=== PATIENT | male | born 1950 | race Caucasian/White ===

== ENCOUNTER 2020-01-20 12:31 | Outpatient (REF) | payer OTHER, SELFPAY ==
[2020-01-20 13:43] LABS: Alanine Aminotransferase 28 U/L (0-40); Albumin Level 4.7 g/dL (3.5-5.0); Alkaline Phosphatase 88 U/L (39-117); Anion Gap 10 (12-20); Aspartate Amino Transferase 22 U/L (5-37); Bilirubin Total 0.7 mg/dL (0.0-1.0); Blood Urea Nitrogen 15 mg/dL (9-16); Calcium 9.6 mg/dL (8.4-10.2); Carbon Dioxide 32 mmol/L (22-29); Chloride 103 mmol/L (96-108); Cholesterol 216 mg/dL; Estimated Glomerular Filt Rate > 60; Glucose Fasting 124 mg/dL (60-99); HDL Cholesterol 60 mg/dL; LDL Cholesterol Calculated 137 mg/dl; Potassium 4.5 mmol/l (3.3-5.1); Sodium 140 mmol/L (135-145); Total Protein 7.3 g/dL (6.5-8.0); Triglycerides 95 mg/dL
[2020-01-20 14:06] LABS: Prostate Specific Antigen Scr 1.81 ng/mL (<0.05-4.0)
== END 2020-01-20 12:32 | disposition home or self-care (01) ==
LOC: HO.LAB 12:31
PROVIDERS: PCP Pediatrics; Visit Provider Pediatrics
DX: Z12.5 Encounter for screening for malignant neoplasm of prostate (principal); E78.00 Pure hypercholesterolemia, unspecified
CPT/HCPCS: 80053; 80061; 84153

== ENCOUNTER 2020-07-10 07:47 | Outpatient (REF) | payer OTHER, SELFPAY ==
--- NOTE | ~2020-07-10 | US_ITS ---
EXAMINATION: US RETROPERITONEAL LIMITED (AORTA) CLINICAL INFORMATION: AAA. COMPARISON: Ultrasound AAA screening abdomen 05/06/2019. TECHNIQUE: [place]-scale, color Doppler and spectral Doppler evaluation of the abdominal aorta. FINDINGS: The aorta is normal. The measurements of the aorta in maximum AP and transverse dimensions respectively are as follows: Proximal: 2.7 x 3.1 cm. Mid: 2.4 x 2.5 cm. Distal: 1.9 x 1.9 cm. PSV: 120 cm/s. The measurements of the common iliac arteries in maximum AP and TRV dimensions are as follows: Right Common Iliac Artery: 1.3 x 1.4 cm. Left Common Iliac Artery: 1.1 x 1.1 cm. US/US aorta IMPRESSION: No evidence of aneurysm. No significant change in proximal mild ectatic abdominal aorta.
== END 2020-07-10 07:48 | disposition home or self-care (01) ==
LOC: HO.US 07:47
PROVIDERS: PCP Pediatrics; Visit Provider Surgery Vascular Surgery
DX: I72.3 Aneurysm of iliac artery (principal)
CPT/HCPCS: 76775

== ENCOUNTER 2020-07-19 10:26 | Outpatient (REF) | payer OTHER, SELFPAY ==
[2020-07-19 12:27] LABS: Estimated Average Glucose 157 mg/dL; Hemoglobin A1c % 7.1 %
[2020-07-19 12:29] LABS: Alanine Aminotransferase 26 U/L (0-40); Albumin Level 4.6 g/dL (3.5-5.0); Alkaline Phosphatase 91 U/L (39-117); Anion Gap 14 (12-20); Aspartate Amino Transferase 24 U/L (5-37); Bilirubin Total 0.8 mg/dL (0.0-1.0); Blood Urea Nitrogen 17 mg/dL (9-16); Calcium 9.8 mg/dL (8.4-10.2); Carbon Dioxide 29 mmol/L (22-29); Chloride 105 mmol/L (96-108); Cholesterol 213 mg/dL; Estimated Glomerular Filt Rate > 60; Glucose Random 126 mg/dL (60-115); HDL Cholesterol 57 mg/dL; LDL Cholesterol Calculated 138 mg/dl; Potassium 4.9 mmol/L (3.3-5.1); Sodium 143 mmol/L (135-145); Total Protein 7.2 g/dL (6.5-8.0); Triglycerides 90 mg/dL
== END 2020-07-19 10:27 | disposition home or self-care (01) ==
LOC: HO.LAB 10:26
PROVIDERS: PCP Pediatrics; Visit Provider Pediatrics
DX: R73.9 Hyperglycemia, unspecified (principal); E78.00 Pure hypercholesterolemia, unspecified
CPT/HCPCS: 36415; 80053; 80061; 83036

== ENCOUNTER 2020-08-11 15:08 | Outpatient (REF) | payer OTHER, SELFPAY ==
--- NOTE | ~2020-08-11 | US_ITS ---
EXAMINATION: US EXTRACRANIAL CAROTID DUPLEX, BILATERAL CLINICAL INFORMATION: Stenosis of bilateral carotid arteries. COMPARISON: None TECHNIQUE: Real-time ultrasound and Doppler techniques (integrating B-mode 2-D vascular images, Doppler spectral analysis and color-flow Doppler imaging) were utilized to interrogate the extracranial carotid arteries, the vertebral arteries and proximal subclavian arteries bilaterally. The degree of stenosis is determined by criteria similar to NASCET. FINDINGS: Right Side: 1. There is mild echogenic atherosclerotic plaque seen in the bifurcation/proximal ICA region. 2. The common carotid artery PSV proximally is 123 cm/s and distally 109 cm/s. 3. The proximal internal carotid artery velocities are 81 cm/s systolic and 21 cm/s diastolic. 4. The proximal external carotid artery PSV is 158 cm/s. 5. The vertebral artery shows antegrade flow. 6. The subclavian artery waveforms are normal. Left Side: 1. There is mild echogenic atherosclerotic plaque seen in the bifurcation/proximal ICA region. 2. The common carotid artery PSV proximally is 149 cm/s and distally 127 cm/s. 3. The proximal internal carotid artery velocities are 84 cm/s systolic and 25 cm/s diastolic. 4. The proximal external carotid artery PSV is 129 cm/s. 5. The vertebral artery shows antegrade flow. 6. The subclavian artery waveforms are normal. US/US carotid duplex BI IMPRESSION: 1. RIGHT: Minimal, non-hemodynamically significant stenosis of the proximal right internal carotid artery corresponding to a 0-49% stenosis by velocity criteria. 2. LEFT: Minimal, non-hemodynamically significant stenosis of the proximal left internal carotid artery corresponding to a 0-49% stenosis by velocity criteria.
== END 2020-08-11 15:09 | disposition home or self-care (01) ==
LOC: HO.US 15:08
PROVIDERS: PCP Pediatrics; Visit Provider Pediatrics
DX: I65.23 Occlusion and stenosis of bilateral carotid arteries (principal)
CPT/HCPCS: 93880

== ENCOUNTER 2020-11-24 09:01 | Outpatient (REF) | payer OTHER, SELFPAY ==
[2020-11-24 10:25] LABS: Alanine Aminotransferase 16 U/L (0-40); Albumin Level 4.3 g/dL (3.5-5.0); Alkaline Phosphatase 79 U/L (39-117); Anion Gap 11 (12-20); Aspartate Amino Transferase 20 U/L (5-37); Blood Urea Nitrogen 15 mg/dL (9-16); Carbon Dioxide 30 mmol/L (22-29); Chloride 104 mmol/L (96-108); Cholesterol 160 mg/dL; Estimated Glomerular Filt Rate > 60; Glucose Random 113 mg/dL (60-115); HDL Cholesterol 54 mg/dL; LDL Cholesterol Calculated 98 mg/dl; Potassium 4.7 mmol/L (3.3-5.1); Sodium 140 mmol/L (135-145); Total Protein 6.8 g/dL (6.5-8.0); Triglycerides 44 mg/dL
[2020-11-24 12:55] LABS: Creatinine Urine 220.62 mg/dL; Microalbum/Creatinine Ratio Ur 4.5 ug/mg cr
[2020-11-25 07:24] LABS: Estimated Average Glucose 120 mg/dL; Hemoglobin A1c % 5.8 %
== END 2020-11-24 09:02 | disposition home or self-care (01) ==
LOC: HO.LAB 09:01
PROVIDERS: PCP Pediatrics; Visit Provider Pediatrics
DX: E11.51 Type 2 diabetes mellitus with diabetic peripheral angiopathy without gangrene (principal)
CPT/HCPCS: 36415; 80053; 80061; 82043; 83036

== ENCOUNTER 2020-12-22 10:15 | Outpatient (REF) | payer OTHER, SELFPAY ==
[2020-12-22 10:53] LABS: COVID-19 Test Negative (Negative)
== END 2020-12-22 10:16 | disposition home or self-care (01) ==
LOC: HO.LAB 10:15
PROVIDERS: PCP Pediatrics; Visit Provider Internal Medicine
DX: Z20.822 Contact with and (suspected) exposure to COVID-19 (principal)
CPT/HCPCS: 36415; 87635; C9803

== ENCOUNTER 2020-12-27 12:33 | Outpatient (REF) | payer OTHER, SELFPAY ==
--- NOTE | ~2020-12-27 | XR_ITS ---
EXAMINATION: XR SHOULDER, BILATERAL CLINICAL INFORMATION: Chronic bilateral shoulder pain COMPARISON: None TECHNIQUE: 4 views of each shoulder FINDINGS: Right shoulder: Normal alignment. No fracture. Mild glenohumeral and moderate acromioclavicular osteoarthritis. No fracture or suspicious bone lesion. Left shoulder: Normal alignment. No fracture. Mild glenohumeral and moderate acromioclavicular osteoarthritis. No fracture or suspicious bone lesion. Probable subscapularis insertional calcific tendinitis. Demonstrated on the axillary view. XR/XR shoulder LT min 2V IMPRESSION: Right shoulder: Mild glenohumeral and moderate acromioclavicular osteoarthritis. Left shoulder: Moderate subacromial and mild glenohumeral osteoarthritis. Probable subscapularis calcific tendinitis.
--- NOTE | ~2020-12-27 | XR_ITS ---
EXAMINATION: XR SHOULDER, BILATERAL CLINICAL INFORMATION: Chronic bilateral shoulder pain COMPARISON: None TECHNIQUE: 4 views of each shoulder FINDINGS: Right shoulder: Normal alignment. No fracture. Mild glenohumeral and moderate acromioclavicular osteoarthritis. No fracture or suspicious bone lesion. Left shoulder: Normal alignment. No fracture. Mild glenohumeral and moderate acromioclavicular osteoarthritis. No fracture or suspicious bone lesion. Probable subscapularis insertional calcific tendinitis. Demonstrated on the axillary view. XR/XR shoulder RT min 2V IMPRESSION: Right shoulder: Mild glenohumeral and moderate acromioclavicular osteoarthritis. Left shoulder: Moderate subacromial and mild glenohumeral osteoarthritis. Probable subscapularis calcific tendinitis.
== END 2020-12-27 12:34 | disposition home or self-care (01) ==
LOC: HO.XRAY 12:33
PROVIDERS: PCP Pediatrics; Visit Provider Physician Assistant
DX: M25.512 Pain in left shoulder (principal); M25.511 Pain in right shoulder
CPT/HCPCS: 73030

== ENCOUNTER 2021-02-23 07:08 | Outpatient (REF) | payer OTHER, SELFPAY ==
--- NOTE | ~2021-02-23 | XR_ITS ---
EXAMINATION: XR SHOULDER, BILATERAL CLINICAL INFORMATION: Pain in the shoulder. COMPARISON: X-rays of the right shoulder December 2020. TECHNIQUE: There are 4 views of each shoulder. FINDINGS: Right Shoulder: Acromioclavicular Joint: Moderate osteoarthritis, unchanged. Glenohumeral Joint: Mild osteoarthritis manifested by small marginal osteophytes. Unchanged. Surrounding bone and soft tissues unremarkable. Left Shoulder: Moderate osteoarthritis of the acromioclavicular joint and mild osteoarthritis of glenohumeral joint manifested by marginal osteophytes. Surrounding soft tissues unremarkable. XR/XR shoulder LT min 2V IMPRESSION: RIGHT SHOULDER: Osteoarthritis. Unchanged LEFT SHOULDER: Osteoarthritis.
--- NOTE | ~2021-02-23 | XR_ITS ---
EXAMINATION: XR SHOULDER, BILATERAL CLINICAL INFORMATION: Pain in the shoulder. COMPARISON: X-rays of the right shoulder December 2020. TECHNIQUE: There are 4 views of each shoulder. FINDINGS: Right Shoulder: Acromioclavicular Joint: Moderate osteoarthritis, unchanged. Glenohumeral Joint: Mild osteoarthritis manifested by small marginal osteophytes. Unchanged. Surrounding bone and soft tissues unremarkable. Left Shoulder: Moderate osteoarthritis of the acromioclavicular joint and mild osteoarthritis of glenohumeral joint manifested by marginal osteophytes. Surrounding soft tissues unremarkable. XR/XR shoulder RT min 2V IMPRESSION: RIGHT SHOULDER: Osteoarthritis. Unchanged LEFT SHOULDER: Osteoarthritis.
== END 2021-02-23 07:09 | disposition home or self-care (01) ==
LOC: HO.HOSX 07:08
PROVIDERS: Visit Provider Physician Assistant
DX: M19.011 Primary osteoarthritis, right shoulder (principal); M19.012 Primary osteoarthritis, left shoulder
CPT/HCPCS: 20610; 73030; J1040

== ENCOUNTER → 2021-04-20 13:08 | Outpatient (BNVA) | payer OTHER, SELFPAY | PROVIDERS: PCP Pediatrics; Visit Provider Physician Assistant | DX: M19.011 Primary osteoarthritis, right shoulder (principal); M19.012 Primary osteoarthritis, left shoulder | CPT/HCPCS: J1040 ==

== ENCOUNTER 2021-04-26 11:11 | Outpatient (REF) | payer OTHER, SELFPAY | END 2021-04-26 11:12 | disposition home or self-care (01) | LOC: HO.LAB 11:11 | PROVIDERS: PCP Pediatrics; Visit Provider Pediatrics | DX: Z13.29 Encounter for screening for other suspected endocrine disorder (principal) | CPT/HCPCS: 36415; 84443 ==

== ENCOUNTER 2021-04-26 14:00 | Outpatient (RCR) | payer OTHER, SELFPAY ==
--- NOTE | 2021-04-13 08:35 | MHC.PT.OD ---
[facility] [place] Office [place] Office [place] Office [address] Juan Manuel Orellana [address] [phone] F: [phone] F: [phone] F: [phone] F: [phone] Physical Therapy Daily Note Diagnosis: Bilateral frozen shoulder and sciatica signed by Ivory Mena PA-C from [place] date of referral 12/27/20 Date of Surgery: N/A Date of Evaluation: 01/08/21 Date of Treatment: 04/12/21 Treatments to Date: Cancellations to Date: No Shows to Date: Authorized Visits: Insurance End Date: Precautions/ Contraindications:DMII, 65 AROM abd on R 90 AROM flexion on R 120 flexion AROM on L 130 abd AROM on L L IR midline Subjective: Not good. I had a very hard time with motion the past few days but I dont know why. After speaking to patient pt expresses has come off of celebrex medication around same time as onset of sx. Pt encouraged to speak to PCP about ongoing sx ? benefit Pain Score and Location: 3 B [facility] Objective Flowsheet: Tests & Measures 04/12/21: R shoulder flexion AROM standing 87 AROM L shoulder flexion AROM standing 50 degrees R shoulder abduction AROM standing 65 degrees L shoulder abduction standing 45 degrees R shoulder ER in standing to C5, L shoulder to ear R ER AROM 50, R IR 60 L ER AROM 60, L IR 45 limited by pain 04/03/21: AROM L flexion 110 degrees, AAROM supine 160 degrees, AAROM scaption 128, ER 70, IR 30 R shoulder AROM 110, AAROM supine flexion 150, AAROM scaption 138 degrees, AAROM ER 48 degrees, AAROM IR 60 degrees. AROM 128 degreees supien L flexion 155, ER 90, IR 53, L scaption 155 R flexion 151, ER 68, IR 58, L scaption 148 [facility] [address] [place] [address] Drive [address] [place] [address] Office Visit Report Signed Patient: Arias Mares [facility]#: [id number] : 2Acct:[id number] Age/Sex: 70 / MADM/SER Date: 02/23/21 Loc: HO.HOSADM/SER Time:1424 Attending Provider: Hayley Tenorio PA-C cc: Hayley Tenorio PA-C; FARA MELVIN MD~ Intake Vital Signs 02/23/21 14:51 Height 5 ft 11 in Weight 178 lb BMI 24.8 Temp 97 F Temp Source Temporal Artery Scan 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 States his pain started about 4 months. No injury. Saw his PCP where he ref him to P.T. States xrays were done and showed O.A. Currently states P.T did help but on Friday he had limited ROM, swelling and his shoulder was hot to the touch. No neck pain. Currently states today he is alot better than than a few days ago. states he is taken Alieve and ibuprofen. No prior injection. Xrays updated in office. 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 He states that the pain began around last year. He attended physical therapy last year which did help. He has been attending physical therapy again this year however this past week he had an increase in pain and difficulty with range of motion. He has never tried cortisone injection. 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 No ecchymosis, redness or edema. Patient is able to demonstrate full shoulder range of motion in all planes but does experience pain. No pain with internal external range of motion. Pain with cross-body reach. Positive empty can. Negative drop-arm. NVI. Office Procedures Joint Injection/Drain Joint Injection/Drain Primary Site: right shoulder Prep: site was prepped using aseptic technique, ethochloride spray was applied and injection warnings given Injected: 80 mg of, DepoMedrol, with 4 mL of, 1% plain lidocaine, 0.25% bupivacaine and in the subcromial space Approach Used: posterolateral Procedure: The patient tolerated the procedure well, but had some pain with the injection and there was some relief with the local anesthesia Coding Procedure code (CPT) selection complete Results Reviewed Results Reviewed: 02/23/21 15:15 Bupivacaine MPF 0.25 % [Sensorcaine-MPF 0.25% 10 ML] 10 ml .ROUTE .STK-MED ONE Lidocaine HCl 1 % MPF [Xylocaine 1 % MPF] 2 ml .ROUTE .STK-MED ONE methylPREDNISolone acetate [DEPO-MedroL] 80 mg .ROUTE .STK-MED ONE Assessment & Plan Assessment & Plan (1) Osteoarthritis of shoulders, bilateral: Code(s): M19.011 - Primary osteoarthritis, right shoulder; M19.012 - Primary osteoarthritis, left shoulder Plan: Mr. Mares is a 70-year-old left-hand dominant male who presents the office today for bilateral shoulder pain. X-rays obtained the office today reveal bilateral shoulder glenohumeral joint arthritis as well as AC joint arthritis. Patient does have weakness when testing the rotator cuffs bilaterally. I have offered him a cortisone injection in which he has consented to move forward with today. He would like to inject 1 shoulder at a time and therefore has elected to proceed with injecting the right shoulder because it is slightly worse with symptoms. He has a history of diabetes type 2 in which is diet controlled. I did explain to the patient that he may have an increase in his sugar levels and should monitor them over the next week. I injected the right shoulder. The patient tolerated the procedure very well. He will follow-up next week for injection of the left shoulder. He will continue to attend physical therapy in which he is currently enrolled. He will follow-up 1 week, sooner if needed Orders: Orders XR shoulder LT min 2V Today M25.519 - Pain in unspecified shoulder XR shoulder RT min 2V Today M25.519 - Pain in unspecified shoulder Coding Level of Care Code Est Pt Level 3 (87646) Diagnoses Osteoarthritis of shoulders, bilateral M19.011; M19.012 Documented By:Hayley Tenorio02/23/21 1425 Signed By:<Electronically signed by Hayley Tenorio>02/23/21 1527 02/20/21:L shoulder flexion 50, R shoulder flexion 30, Poor tolerance for R PROM assessment secondary to severe pain and guarding. Pt unable to tolerate therapist ranging his shoulder into ER/IR, flexion, 02/13/21: L AROM FLEXION 133, L AROM supine 153 L AROM ABDUCTION 108, AROM supine 135 L AROM IR Lat buttocks, L AROM IR 60 L AROM ER C7, L AROM 80 R AROM FLEXION 88 degrees, supine flexion 133 R AROM ABDUCTION 72 degrees, supine abduction 103 R ER PROM 50 limited by pain, R IR 64 limited by pain I never had great ability to reach behind my back. Exercises [employer] UE warmup x 10 minutes level 3.0 backward and then 10 minutes forward in effort to increase ROM/reduce pain. ROWS with stroop nathalia, ER/IR with red Stroop nathalia x 2 sets 10R, standing wall pushups with a plus x 2 sets 10R, wall ball 500gram ball up/down/circles, AAROM wall slide x 5R x 20 sec hold, left upper trap and left levator scap, stretches for home program. AAROM cane flexion with 2# weight x 2 set 10R. Biofreeze in the office today over both shoulders pre applied manual therapy treatment with good tolerance. Posterior/inferior mobs pre activity; L>R shoulder for PROM all planes x 5R each to tolerance. L SL for trial of scap mob with poor tolerance verbalized, R SL for scap mob and teres musculature. Education re: recommendation for self care/STM, AAROM/AROM back off from strengthening when this symptomatic. MHP to bilateral shoulders x 10 minutes pre activity with phone call placed to PCP office as noted above Self care to continue current HEP program as previously prescribed Start with MHP/shower/pendulums movement>> AAROM table slides, pulleys, supine cane work, end with ice prn for pain. Modalities Assessment: 04/12/21: Pt presents to office with significant in decline and setback in ROM/mobility which was present prior. Upon speaking to patient it appears he ran out of celebrex medication around onset of sx and he was unsure if he had a refill. Pt was advised to inquire with pharmacy about refill and follow up with orthopedics office to determine plan going forward. Therapist called orthopedics to assist in obtaining a follow up appt for patient due to recurrence of poor ROM/severe pain despite home program. Pt was also advised to follow up with PCP re sx-? thyroid involvement due to repeated bouts of sx despite compliance with home program (reports (+) family history of thyroid deficiencies). Pt is plateauing in progress with PT- he has attended 22 visits to date. He has an AAROM/AROM program and persiscap program program in place. Pt expressing more pain in L shoulder>R side. He received an injection in R shoulder on 02/22/21 with (+) improvement however now he questions sx flaring again. He questions benefit in moving forward with L shoulder injection, He continues to exhibit impaired scapulohumeral rhythm and impaired end ranges. He has been performing home program, encouraged ROM with goal of backing off from strengthening tasks for now. PT Plan: Follow up with ortho and PCP ? benefit screening thyroid due to (+) family history and repeated sx despite home program Short Term Goals: 1. AAROM R shoulder flexion to improve to 110, L shoulder flexion AAROM to 140. 2. Pt will initiate HEP for bilateral frozen shoulders, sciatica. 3. Pt will demonstrate IR to back pocket B shoulders. 4. Pt will demonstrate ER to C7 B to wash back of neck. K [employer] Officer Goals: 1. Functional ROM of L>R shoulder all planes sx <2/10 B shoulders. 2. Pt will demonstrate I HEP for stretching/stabilization program. 3. IR bilateral shoulders don belt MOD I. 4. Strength 5/5 B UE. 5. Resume guitar/household tasks MOD I. 6. Demonstrate carryover of frozen shoulder sx and initiate undertanding of sx. Electronically signed by: Cinthia Graves, PT, DPT
== END 2021-09-21 13:45 | disposition home or self-care (01) ==
LOC: HO.PTWFD 14:00
PROVIDERS: PCP Pediatrics; Visit Provider Physician Assistant
DX: M54.30 Sciatica, unspecified side (principal); M75.00 Adhesive capsulitis of unspecified shoulder
CPT/HCPCS: 97110; 97140; 97150; 97162; 97535

== ENCOUNTER → 2021-05-04 14:04 | Outpatient (RCR) | payer OTHER, SELFPAY | END | disposition home or self-care (01) | LOC: HO.PT 02-01 07:40 | PROVIDERS: Visit Provider Pediatrics | DX: M25.511 Pain in right shoulder (principal); M25.512 Pain in left shoulder; G89.29 Other chronic pain | CPT/HCPCS: 97110; 97162 ==

== ENCOUNTER 2021-05-21 09:44 | Outpatient (REF) | payer OTHER, SELFPAY ==
[2021-05-21 11:00] LABS: Estimated Average Glucose 123 mg/dL; Hemoglobin A1c % 5.9 %
[2021-05-21 11:01] LABS: Alanine Aminotransferase 15 U/L (0-40); Albumin Level 4.4 g/dL (3.5-5.0); Alkaline Phosphatase 88 U/L (39-117); Anion Gap 12 (12-20); Aspartate Amino Transferase 18 U/L (5-37); Bilirubin Total 0.7 mg/dL (0.0-1.0); Blood Urea Nitrogen 15 mg/dL (9-16); Calcium 9.9 mg/dL (8.4-10.2); Carbon Dioxide 29 mmol/L (22-29); Chloride 105 mmol/L (96-108); Cholesterol 170 mg/dL; Estimated Glomerular Filt Rate > 60; Glucose Random 119 mg/dL (60-115); HDL Cholesterol 57 mg/dL; LDL Cholesterol Calculated 103 mg/dl; Potassium 4.6 mmol/L (3.3-5.1); Sodium 141 mmol/L (135-145); Total Protein 7.4 g/dL (6.5-8.0); Triglycerides 53 mg/dL
[2021-05-21 11:23] LABS: Creatinine Urine 145.93 mg/dL; Microalbum/Creatinine Ratio Ur 4.1 ug/mg cr
== END 2021-05-21 09:45 | disposition home or self-care (01) ==
LOC: HO.LAB 09:44
PROVIDERS: PCP Pediatrics; Visit Provider Pediatrics
DX: E11.51 Type 2 diabetes mellitus with diabetic peripheral angiopathy without gangrene (principal)
CPT/HCPCS: 36415; 80053; 80061; 82043; 83036

== ENCOUNTER 2021-06-04 11:09 | Outpatient (REF) | payer OTHER, SELFPAY ==
[2021-06-04 13:23] LABS: Erythrocyte Sedimentation Rate 31 MM/HR (0-15)
[2021-06-04 13:24] LABS: Rheumatoid Factor < 15.0 IU/mL (<15.0); Uric Acid 4.7 mg/dL (3.4-7.0)
[2021-06-04 13:33] LABS: Thyroid Stimulating Hormone 1.73 uIU/mL (0.32-4.0)
[2021-06-05 15:51] LABS: Triiodothyronine T3 Free 3.2 pg/mL (2.3-4.2)
[2021-06-05 18:32] LABS: Lyme Abs Screen <0.90 index
[2021-06-06 15:26] LABS: Anti Nuclear Antibody Screen NEGATIVE (NEGATIVE)
== END 2021-06-04 11:10 | disposition home or self-care (01) ==
LOC: HO.LAB 11:09
PROVIDERS: PCP Pediatrics; Visit Provider Pediatrics
DX: M25.50 Pain in unspecified joint (principal)
CPT/HCPCS: 36415; 84436; 84443; 84481; 84550; 85652; 86038; 86039; 86431; 86617; 86618

== ENCOUNTER 2021-11-26 07:51 | Outpatient (REF) | payer OTHER, SELFPAY ==
[2021-11-26 08:40] LABS: Alanine Aminotransferase 14 U/L (0-40); Albumin Level 4.3 g/dL (3.5-5.0); Alkaline Phosphatase 92 U/L (39-117); Anion Gap 14 (12-20); Aspartate Amino Transferase 17 U/L (5-37); Blood Urea Nitrogen 18 mg/dL (9-16); Calcium 9.9 mg/dL (8.4-10.2); Carbon Dioxide 29 mmol/L (22-29); Chloride 103 mmol/L (96-108); Cholesterol 164 mg/dL; Estimated Glomerular Filt Rate > 60; Glucose Random 111 mg/dL (60-115); HDL Cholesterol 49 mg/dL; LDL Cholesterol Calculated 105 mg/dl; Potassium 4.6 mmol/L (3.3-5.1); Sodium 141 mmol/L (135-145); Total Protein 7.3 g/dL (6.5-8.0); Triglycerides 52 mg/dL
[2021-11-26 09:03] LABS: Prostate Specific Antigen Scr 2.52 ng/mL (<0.05-4.0)
[2021-11-26 09:22] LABS: Estimated Average Glucose 117 mg/dL; Hemoglobin A1c % 5.7 %
[2021-11-26 09:35] LABS: Creatinine Urine 49.09 mg/dL; Microalbumin Urine < 5.0 mg/L
== END 2021-11-26 07:52 | disposition home or self-care (01) ==
LOC: HO.LAB 07:51
PROVIDERS: PCP Pediatrics; Visit Provider Pediatrics
DX: Z12.5 Encounter for screening for malignant neoplasm of prostate (principal); E11.51 Type 2 diabetes mellitus with diabetic peripheral angiopathy without gangrene
CPT/HCPCS: 36415; 80053; 80061; 82043; 83036; 84153

== ENCOUNTER 2021-12-03 14:59 | Outpatient (REF) | payer OTHER, SELFPAY ==
--- NOTE | ~2021-12-03 | XR_ITS ---
EXAMINATION: XR BILATERAL HIPS WITH AP PELVIS CLINICAL INFORMATION: Hip pain. COMPARISON: None TECHNIQUE: AP and frog-leg lateral views of each hip and an AP view of the pelvis. FINDINGS: Small bilateral marginal acetabular osteophytes. Hip joint spaces are well-preserved. No fracture or malalignment. Additional mild osteoarthritis is present in the SI joints. Pubic symphysis is normal. There is degenerative spondylosis in the lumbar spine with facet arthropathy. No acute osseous lesions are identified. Enthesopathic spurs are present at the anterior superior iliac spines. No evidence of avascular necrosis. 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 More mild osteoarthritis at the sacroiliac joints. Degenerative spondylosis in the lower lumbar spine.
--- NOTE | ~2021-12-03 | XR_ITS ---
EXAMINATION: XR BILATERAL HIPS WITH AP PELVIS CLINICAL INFORMATION: Hip pain. COMPARISON: None TECHNIQUE: AP and frog-leg lateral views of each hip and an AP view of the pelvis. FINDINGS: Small bilateral marginal acetabular osteophytes. Hip joint spaces are well-preserved. No fracture or malalignment. Additional mild osteoarthritis is present in the SI joints. Pubic symphysis is normal. There is degenerative spondylosis in the lumbar spine with facet arthropathy. No acute osseous lesions are identified. Enthesopathic spurs are present at the anterior superior iliac spines. No evidence of avascular necrosis. XR/XR hip LT w PEL1V IMPRESSION: Minimal osteoarthritis in the hips. More mild osteoarthritis at the sacroiliac joints. Degenerative spondylosis in the lower lumbar spine.
[2021-12-03 15:18] LABS: MANUAL DIFF FLAG NO
[2021-12-03 16:31] LABS: Basophils Percent Auto 0.4 % (0-2); Eosinophils Absolute Auto 0.1 X10*3/uL (0.0-0.4); Eosinophils Percent Auto 1.6 % (0-4); Hematocrit 39.6 % (42.0-52.0); Hemoglobin 13.2 g/dl (14.0-18.0); Imm Gran Abs Auto 0.02 X10*3/uL (0.00-0.03); Imm Gran Pct Auto 0.3 % (0.0-0.4); Lymphocytes Absolute Auto 1.6 X10*3/uL (1.2-4.9); Mean Corpuscular HGB Conc 33.3 g/dl (31.0-36.0); Mean Corpuscular Hemoglobin 30.3 pg (27.0-33.0); Mean Corpuscular Volume 90.8 fL (80.0-98.0); Mean Platelet Volume 9.9 fL (9.4-12.4); Monocytes Absolute Auto 0.6 X10*3/uL (0.1-1.2); Monocytes Percent Auto 8.6 % (2-11); Neutrophils Absolute Auto 4.5 x10*3/uL (2.0-8.3); Neutrophils Percent Auto 66.1 % (45-73); Platelet Count 332 X10*3/uL (160-400); Red Blood Count 4.36 X10*6/uL (4.60-5.80); Red Cell Distribution Width 12.2 % (11.0-16.0); White Blood Count 6.8 X10*3/uL (4.8-10.8)
[2021-12-03 16:49] LABS: C Reactive Protein 5.98 mg/dL (< or = 0.50)
[2021-12-03 17:15] LABS: Erythrocyte Sedimentation Rate 74 MM/HR (0-15)
== END 2021-12-03 15:00 | disposition home or self-care (01) ==
LOC: HO.XRAY 14:59
PROVIDERS: PCP Pediatrics; Visit Provider Internal Medicine Rheumatology
DX: M25.551 Pain in right hip (principal); M25.552 Pain in left hip; M19.011 Primary osteoarthritis, right shoulder; M19.012 Primary osteoarthritis, left shoulder
CPT/HCPCS: 36415; 73502; 85025; 85652; 86140

== ENCOUNTER 2021-12-13 14:20 | Outpatient (REF) | payer OTHER, SELFPAY ==
[2021-12-13 15:43] LABS: C Reactive Protein 0.83 mg/dL (< or = 0.50)
[2021-12-13 15:58] LABS: Erythrocyte Sedimentation Rate 38 MM/HR (0-15)
== END 2021-12-13 14:21 | disposition home or self-care (01) ==
LOC: HO.LAB 14:20
PROVIDERS: PCP Pediatrics; Visit Provider Internal Medicine Rheumatology
DX: M35.3 Polymyalgia rheumatica (principal)
CPT/HCPCS: 36415; 85652; 86140

== ENCOUNTER 2021-12-19 14:55 | Outpatient (REF) | payer OTHER, SELFPAY ==
[2021-12-19 16:30] LABS: C Reactive Protein 0.33 mg/dL (< or = 0.50)
[2021-12-19 16:50] LABS: Erythrocyte Sedimentation Rate 23 MM/HR (0-15)
== END 2021-12-19 14:56 | disposition home or self-care (01) ==
LOC: HO.LAB 14:55
PROVIDERS: PCP Pediatrics; Visit Provider Internal Medicine Rheumatology
DX: M35.3 Polymyalgia rheumatica (principal)
CPT/HCPCS: 36415; 85652; 86140

== ENCOUNTER 2021-12-28 10:38 | Outpatient (REF) | payer OTHER, SELFPAY ==
[2021-12-28 12:22] LABS: C Reactive Protein 0.09 mg/dL (< or = 0.50); Erythrocyte Sedimentation Rate 12 MM/HR (0-15)
== END 2021-12-28 10:39 | disposition home or self-care (01) ==
LOC: HO.LAB 10:38
PROVIDERS: PCP Pediatrics; Visit Provider Internal Medicine Rheumatology
DX: M35.3 Polymyalgia rheumatica (principal)
CPT/HCPCS: 36415; 85652; 86140

== ENCOUNTER 2022-02-15 16:09 | Outpatient (REF) | payer OTHER, SELFPAY ==
[2022-02-15 17:41] LABS: C Reactive Protein 0.12 mg/dL (< or = 0.50)
[2022-02-15 18:14] LABS: Erythrocyte Sedimentation Rate 13 MM/HR (0-15)
== END 2022-02-15 16:10 | disposition home or self-care (01) ==
LOC: HO.LAB 16:09
PROVIDERS: Visit Provider Internal Medicine Rheumatology
DX: M35.3 Polymyalgia rheumatica (principal)
CPT/HCPCS: 36415; 85652; 86140

== ENCOUNTER 2022-03-05 12:17 | Outpatient (REF) | payer OTHER, SELFPAY ==
[2022-03-05 13:06] LABS: C Reactive Protein 0.18 mg/dL (< or = 0.50)
[2022-03-05 13:18] LABS: Erythrocyte Sedimentation Rate 13 MM/HR (0-15)
== END 2022-03-05 12:18 | disposition home or self-care (01) ==
LOC: HO.LAB 12:17
PROVIDERS: PCP Pediatrics; Visit Provider Internal Medicine Rheumatology
DX: M35.3 Polymyalgia rheumatica (principal)
CPT/HCPCS: 36415; 85652; 86140

== ENCOUNTER → 2022-03-07 09:57 | Outpatient (BNVA) | payer OTHER, SELFPAY | PROVIDERS: PCP Pediatrics; Visit Provider Internal Medicine Rheumatology | DX: M35.3 Polymyalgia rheumatica (principal) ==

== ENCOUNTER 2022-05-01 09:02 | Outpatient (REF) | payer MEDICARE, SELFPAY ==
[2022-05-01 10:36] LABS: C Reactive Protein 2.14 mg/dL (< or = 0.50)
[2022-05-01 10:45] LABS: Erythrocyte Sedimentation Rate 69 MM/HR (0-15)
== END 2022-05-01 09:03 | disposition home or self-care (01) ==
LOC: HO.LAB 09:02
PROVIDERS: PCP Pediatrics; Visit Provider Internal Medicine Rheumatology
DX: M35.3 Polymyalgia rheumatica (principal)
CPT/HCPCS: 36415; 85652; 86140

== ENCOUNTER → 2022-05-06 14:28 | Outpatient (BNVA) | payer MEDICARE, SELFPAY | PROVIDERS: PCP Pediatrics; Visit Provider Internal Medicine Rheumatology | DX: E11.9 Type 2 diabetes mellitus without complications (principal); M35.3 Polymyalgia rheumatica | CPT/HCPCS: 99212 ==

== ENCOUNTER 2022-05-20 11:00 | Outpatient (REF) | payer MEDICARE, SELFPAY ==
[2022-05-20 12:20] LABS: Erythrocyte Sedimentation Rate 23 MM/HR (0-15)
[2022-05-20 12:30] LABS: C Reactive Protein 0.11 mg/dL (< or = 0.50)
== END 2022-05-20 11:01 | disposition home or self-care (01) ==
LOC: HO.LAB 11:00
PROVIDERS: PCP Pediatrics; Visit Provider Internal Medicine Rheumatology
DX: M35.3 Polymyalgia rheumatica (principal)
CPT/HCPCS: 36415; 85652; 86140

== ENCOUNTER 2022-06-20 10:09 | Outpatient (REF) | payer MEDICARE, SELFPAY ==
[2022-06-20 11:17] LABS: C Reactive Protein 0.18 mg/dL (< or = 0.50)
[2022-06-20 11:18] LABS: Erythrocyte Sedimentation Rate 16 MM/HR (0-15)
== END 2022-06-20 10:10 | disposition home or self-care (01) ==
LOC: HO.LAB 10:09
PROVIDERS: PCP Pediatrics; Visit Provider Internal Medicine Rheumatology
DX: M35.3 Polymyalgia rheumatica (principal)
CPT/HCPCS: 36415; 85652; 86140

== ENCOUNTER → 2022-06-27 09:01 | Outpatient (BNVA) | payer MEDICARE, SELFPAY | PROVIDERS: PCP Pediatrics; Visit Provider Internal Medicine Rheumatology | DX: M35.3 Polymyalgia rheumatica (principal) | CPT/HCPCS: 99212 ==

== ENCOUNTER 2022-07-16 11:34 | Outpatient (REF) | payer MEDICARE, SELFPAY ==
[2022-07-16 12:56] LABS: Erythrocyte Sedimentation Rate 13 MM/HR (0-15)
[2022-07-16 12:57] LABS: C Reactive Protein 0.12 mg/dL (< or = 0.50)
== END 2022-07-16 11:35 | disposition home or self-care (01) ==
LOC: HO.LAB 11:34
PROVIDERS: PCP Pediatrics; Visit Provider Internal Medicine Rheumatology
DX: M35.3 Polymyalgia rheumatica (principal)
CPT/HCPCS: 36415; 85652; 86140

== ENCOUNTER 2022-08-26 10:05 | Outpatient (REF) | payer MEDICARE, SELFPAY ==
[2022-08-26 11:35] LABS: Erythrocyte Sedimentation Rate 17 MM/HR (0-15)
[2022-08-26 11:56] LABS: C Reactive Protein 0.17 mg/dL (< or = 0.50)
== END 2022-08-26 10:06 | disposition home or self-care (01) ==
LOC: HO.LAB 10:05
PROVIDERS: PCP Pediatrics; Visit Provider Internal Medicine Rheumatology
DX: M35.3 Polymyalgia rheumatica (principal)
CPT/HCPCS: 36415; 85652; 86140

== ENCOUNTER → 2022-08-29 08:56 | Outpatient (BNVA) | payer MEDICARE, SELFPAY | PROVIDERS: PCP Pediatrics; Visit Provider Internal Medicine Rheumatology | DX: M35.3 Polymyalgia rheumatica (principal); M16.0 Bilateral primary osteoarthritis of hip; Z79.52 Long term (current) use of systemic steroids | CPT/HCPCS: 99212 ==

== ENCOUNTER 2022-09-05 09:36 | Outpatient (REF) | payer MEDICARE, SELFPAY ==
--- NOTE | ~2022-09-05 | MM_ITS ---
EXAMINATION: BONE DENSITOMETRY CLINICAL INDICATION: Long-term, current, use of systemic steroids. COMPARISON: None (current study represents initial baseline exam). TECHNIQUE: Using a [employer]* DXA System (software version: 13.1) manufactured by [employer], dual-energy x-ray absorptiometry was performed of the lumbar spine and left hip. The images are of good technical quality. Summary results are attached. FINDINGS: AP SPINE L1-L4: BMD 1.272 g/cm2, Z-score 1.1, T-score 0.4, normal. LEFT FEMUR, NECK: BMD 0.838 g/cm2, Z-score -0.4, T-score -1.8, osteopenia. LEFT FEMUR, TOTAL: BMD 0.934 g/cm2, Z-score -0.3, T-score -1.2, osteopenia. IDENTIFIED RISK FACTORS: Glucocorticoids (chronic). HISTORY OF FRACTURE: None listed. MEDICATIONS: None listed. MM/XR DEXA axial skeleton IMPRESSION: 1. DIAGNOSIS: Osteopenia based on the lowest T-score value of -1.8 in the femoral neck applying World Health Organization criteria. 2. 10-YEAR FRACTURE RISK PREDICTION, FRAX: Major osteoporotic fracture (clinical spine, forearm, hip or shoulder) 10.0%. Hip fracture 2.9%. 3. Treatment Recommendations: NOF guidelines recommend consideration for treatment in postmenopausal women and men age 50 and older presenting with the following: -A hip or vertebral (clinical or morphometric) fracture. -T-score less than or equal to -2.5 at the femoral neck or spine after appropriate evaluation to exclude secondary causes. -Low bone mass at the hip or spine and a 10-year fracture probability by FRAX of greater than or equal to 3% for hip fracture or greater than or equal to 20% for major osteoporotic fracture based on the [place] adapted WHO algorithm. 4. Other Recommendations: All treatment decisions require clinical judgment and consideration of individual patient factors, including patient preferences, comorbidities, previous drug use, risk factors not captured in the FRAX model (e.g. frailty, falls, vitamin D deficiency, increased bone turnover, interval significant decline in bone density) and possible under or overestimation of fracture risk by FRAX. Additional medical evaluation for secondary cause of low bone mineral density may be appropriate. FUTURE SCAN RECOMMENDATION: People with diagnosed cases of osteoporosis or at high risk for fracture should have regular bone mineral density tests. For patients eligible for Medicare, routine testing is allowed once every 2 years. The testing frequency can be increased to one year for patients who have rapidly progressing disease, those who are receiving or discontinuing medical therapy to restore bone mass, or have additional risk factors.
== END 2022-09-05 09:37 | disposition home or self-care (01) ==
LOC: HO.MAMMO 09:36
PROVIDERS: PCP Pediatrics; Visit Provider Internal Medicine Rheumatology
DX: Z13.820 Encounter for screening for osteoporosis (principal); Z79.52 Long term (current) use of systemic steroids; M85.852 Other specified disorders of bone density and structure, left thigh
CPT/HCPCS: 77080

== ENCOUNTER 2022-11-22 10:44 | Outpatient (REF) | payer MEDICARE, SELFPAY ==
[2022-11-22 12:35] LABS: Erythrocyte Sedimentation Rate 12 MM/HR (0-15)
[2022-11-22 12:52] LABS: C Reactive Protein < 0.10 mg/dL (< or = 0.50)
[2022-11-28 13:17] LABS: Vitamin D 25-OH, D2 <4 ng/mL; Vitamin D 25-OH, D3 45 ng/mL; Vitamin D 25-OH, Total 45 ng/mL (30-100)
== END 2022-11-22 10:45 | disposition home or self-care (01) ==
LOC: HO.LAB 10:44
PROVIDERS: PCP Pediatrics; Visit Provider Internal Medicine Rheumatology
DX: M85.80 Other specified disorders of bone density and structure, unspecified site (principal); M35.3 Polymyalgia rheumatica
CPT/HCPCS: 36415; 82306; 85652; 86140

== ENCOUNTER 2022-11-27 09:29 | Outpatient (AMB) | payer MEDICARE, SELFPAY ==
--- NOTE | 2022-11-27 09:33 | A.OFFVIS_ITS ---
Intake Vital Signs 11/27/22 09:34 Height 5 ft 11 in Weight 167 lb 12.348 oz BMI 23.4 BP 140/84 H Blood Pressure Location Lt brachial Position Sitting Pulse 72 Pulse Source Pulse Oximeter Temp 97.9 F Temp Source Skin Pulse Oximetry (%) 98 Oxygen Delivery Method Room Air Intake Visit Reasons: pmr Intake Note: Patient here for PMR follow up. [place] Required: No Accompanied by: Self / Same As Patient Allergies Vicodin Allergy (Intermediate, Uncoded 11/27/22 09:40) Vomiting HPI HPI Comments History of Present Illness Details The patient returns for evaluation of his PMR. He remains on prednisone 5 mg the morning and 2.5 mg in the evening. He reports that he does not seem to have any joint pain with the current regimen. Occasionally he gets some cramping in the right buttock region while driving. He has no headache, jaw claudication or visual disturbance. 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 Physical Exam Vital Signs: Last Vital Signs Temp 97.9 F 11/27/22 09:34 Pulse 72 11/27/22 09:34 BP 140/84 H 11/27/22 09:34 Pulse Ox 98 11/27/22 09:34 Oxygen Delivery Method Room Air 11/27/22 09:34 BMI result Body Mass Index 23.4 APPEARANCE: Patient in no acute distress EYES no redness, pupils equal and reactive to light, eyelids normal.? No temporal artery tenderness, redness or swelling. EXTREMITIES:? No edema, no calf tenderness, normal peripheral pulses. JOINT EXAM: Cervical Spine:? Full range of motion without pain; no tenderness. Thoracic Spine:.? No scoliosis.? No tenderness on palpation. Lumbar Spine:.? Alignment normal.? Full range of motion without pain, no tenderness. Chest Wall:? No tenderness, swelling, increased warmth or erythema. Hands:.? Normal pain-free range of motion with slight thickening at the PIP joints.? None of these are tender however.? Elsewhere there is no tenderness, swelling, increased warmth or erythema. 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 Wrists:.? Normal pain-free range of motion without tenderness, swelling, increased warmth or erythema. Elbows:. Normal pain-free range of motion without tenderness, swelling, increased warmth or erythema. Shoulders:? Right:? slight discomfort with extremes of range of motion.?? No tenderness, adenopathy or weakness.? Left:? Full range of motion without pain. No tenderness, weakness, swelling, increased warmth or erythema. Hips:? Right: no buttock pain with extremes of flexion. Rotation slightly limited. No groin pain with motion. Left: Normal pain-free range of motion.? No groin tenderness or mass. Hip bursa:? No tenderness. Knees:?? Normal pain-free range of motion with mild patellofemoral crepitus but no effusion,tenderness, swelling, increased warmth or erythema.? ? Results Reviewed Results Reviewed: Laboratory Tests 11/22/22 10:59 ESR 12 C-Reactive Protein < 0.10 Assessment & Plan Assessment & Plan (1) Polymyalgia rheumatica: Comment: Onset?fall 2020; prednisone since 11/2021 Code(s): M35.3 - Polymyalgia rheumatica Plan PMR with good control of symptoms with current dose of prednisone. I think we should try again to taper the prednisone at this point using 1 mg increments. He will take 4 of the 1 mg prednisone tablet in the morning and stay with the 2.5 mg in the evening. We will recheck things at 2 months with lab work precedi ng the visit. He does have a vitamin-D level pending from his blood work we will get back to him on that value when it returns. Orders: Orders Erythrocyte Sedimentation Rate Today M35.3 - Polymyalgia rheumatica C Reactive Protein Today M35.3 - Polymyalgia rheumatica Medications: New prednisone 4 mg (4 x 1 mg) PO DAILY 360 tabs 1RF M35.3 - Polymyalgia rheumatica Changed From prednisone two tab in AM and one tab in PM daily 90 tabs 3RF M35.3 - Polymyalgia rheumatica To prednisone one tab in PM; 4 of the 1mg tabs in the AM 90 tabs 3RF M35.3 - Polymyalgia rheumatica Coding Level of Care Code Est Pt Level 3 (68369) Diagnoses Polymyalgia rheumatica M35.3
[2022-11-27 09:34] VITALS: BP 140/84; PULSE 72; TEMP 36.6; O2SAT 98; BMI 23.4
== END 2022-11-27 09:53 | disposition home or self-care (01) ==
PROVIDERS: PCP Pediatrics; Visit Provider Internal Medicine Rheumatology
DX: M35.3 Polymyalgia rheumatica (principal)
CPT/HCPCS: 99213

== ENCOUNTER → 2022-11-27 09:29 | Outpatient (BNVA) | payer MEDICARE, SELFPAY | PROVIDERS: PCP Pediatrics; Visit Provider Internal Medicine Rheumatology | DX: M35.3 Polymyalgia rheumatica (principal) | CPT/HCPCS: 99212 ==

== ENCOUNTER 2023-01-20 13:09 | Outpatient (REF) | payer MEDICARE, SELFPAY ==
[2023-01-20 15:24] LABS: C Reactive Protein < 0.10 mg/dL (< or = 0.50)
[2023-01-20 16:04] LABS: Erythrocyte Sedimentation Rate 7 MM/HR (0-15)
== END 2023-01-20 13:10 | disposition home or self-care (01) ==
LOC: HO.LAB 13:09
PROVIDERS: PCP Pediatrics; Visit Provider Internal Medicine Rheumatology
DX: M35.3 Polymyalgia rheumatica (principal)
CPT/HCPCS: 36415; 85652; 86140

== ENCOUNTER 2023-01-23 11:07 | Outpatient (AMB) | payer MEDICARE, SELFPAY ==
[2023-01-23 11:13] VITALS: BP 130/74; PULSE 62; RESP 15; TEMP 36.2; O2SAT 98
--- NOTE | 2023-01-23 11:13 | A.OFFVIS_ITS ---
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 He remains on prednisone taking 4 mg the morning and 2.5 mg in the afternoon. The joints are reasonably comfortable up until the past 2 weeks. At that point he undertook some yard work including raking leaves and increased his weightlifting. That seems to have resulted in bilateral shoulder pain, currently right greater than the left. This is over the top of the shoulder, posteriorly and in the deltoids. It is present most of the day and night. When he took a break from his yard work it did improve to some degree. He does take some acetaminophen for this with some benefit. There is no headache, jaw claudication or visual disturbance. 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 Negative for vision change, dry eyes,headaches and dizziness Neuro Details: Negative for epilepsy, palsy, stroke, changes in speech, tingling and weakness Endo Details: Negative for polyuria and polydypsia Sudarshan/Lymph Details: Negative for excessive bruising or bleeding. Physical Exam Vital Signs: Last Vital Signs Temp 97.1 F 01/23/23 11:13 Pulse 62 01/23/23 11:13 Resp 15 01/23/23 11:13 BP 130/74 01/23/23 11:13 Pulse Ox 98 01/23/23 11:13 Oxygen Delivery Method Room Air 01/23/23 11:13 APPEARANCE: Patient in no acute distress EYES no redness, pupils equal and reactive to light, eyelids normal.? No temporal artery tenderness, redness or swelling. EXTREMITIES:? No edema, no calf tenderness, normal peripheral pulses. JOINT EXAM: Cervical Spine:? Full range of motion without pain; no tenderness. Thoracic Spine:.? No scoliosis.? No tenderness on palpation. Lumbar Spine:.? Alignment normal.? Full range of motion without pain, no tenderness. Chest Wall:? No tenderness, swelling, increased warmth or erythema. Hands:.? Normal pain-free range of motion with slight thickening at the PIP joints.? None of these are tender however.? Elsewhere there is no tenderness, swelling, increased warmth or erythema. 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 Wrists:.? Normal pain-free range of motion without tenderness, swelling, increased warmth or erythema. Elbows:. Normal pain-free range of motion without tenderness, swelling, increased warmth or erythema. Shoulders:? Right:? Mild pain with abduction at the 150 degrees or with the extremes of internal or external rotation. There is mild anterior tenderness without adenopathy or weakness.? Left:? Full range of motion with mild discomfort at the extremes of normal range of motion. There is some slight anterior tenderness without adenopathy, weakness, swelling, increased warmth or erythema. Hips:? Right: no buttock pain with extremes of flexion. Rotation slightly limited. No groin pain with motion. Left: Normal pain-free range of motion.? No groin tenderness or mass. Hip bursa:? No tenderness. Knees:?? Normal pain-free range of motion with mild patellofemoral crepitus but no effusion,tenderness, swelling, increased warmth or erythema.? ? ? Results Reviewed Results Reviewed: Laboratory Tests 01/20/23 13:29 ESR 7 C-Reactive Protein < 0.10 Laboratory Tests 07/16/22 08/26/22 08/26/22 11:43 10:17 10:17 ESR 17 H C-Reactive Protein 0.12 0.17 11/22/22 10:59 ESR 12 C-Reactive Protein Laboratory Tests 11/22/22 10:59 25-OH Vitamin D Total [address] [address] XRay Report Signed Patient: Arias Mares MR#: [id number] : 1950 Acct:[id number] Age/Sex: 70 / M ADM Date: 02/23/21 Ordering Physician: Hayley Tenorio PA-C Date of Service: 02/23/21 Procedure(s): XR shoulder RT min 2V Accession Number(s): [id number] cc: Hayley Tenorio PA-C~ EXAMINATION: XR SHOULDER, BILATERAL CLINICAL INFORMATION: Pain in the shoulder. COMPARISON: X-rays of the right shoulder December 2020. TECHNIQUE: There are 4 views of each shoulder. FINDINGS: Right Shoulder: Acromioclavicular Joint: Moderate osteoarthritis, unchanged. Glenohumeral Joint: Mild osteoarthritis manifested by small marginal osteophytes. Unchanged. Surrounding bone and soft tissues unremarkable. Left Shoulder: Moderate osteoarthritis of the acromioclavicular joint and mild osteoarthritis of glenohumeral joint manifested by marginal osteophytes. Surrounding soft tissues unremarkable. XR/XR shoulder RT min 2V IMPRESSION: RIGHT SHOULDER: Osteoarthritis. Unchanged LEFT SHOULDER: Osteoarthritis. Dictated By: TITA ROMERO MD Signed By: <Electronically signed by TITA ROMERO MD in OV> 02/24/21 1078 Assessment & Plan Assessment & Plan (1) Osteopenia: Comment: 08/2022 T scores: LS spine 0.4, femur -1.8, fem neck -1.2. FRAX risks 10%/2.9% Code(s): M85.80 - Other specified disorders of bone density and structure, unspecified site (2) Osteoarthritis of shoulders, bilateral: Comment: mild OA in GH and AC joints Code(s): M19.011 - Primary osteoarthritis, right shoulder; M19.012 - Primary osteoarthritis, left shoulder (3) Polymyalgia rheumatica: Comment: Onset?fall 2020; prednisone since 11/2021 Code(s): M35.3 - Polymyalgia rheumatica Plan He has had some return of shoulder pain but the pattern here is that it developed after an increased amount of physical activity. The acute phase reactants remain normal also suggesting the pain is not inflammatory in etiology. He has known glenohumeral osteoarthritis so I think he has flared up the OA symptoms with his extra physical activity. We will keep the prednisone at the current dose. He should back off on his physical activity for a while. If this does not get much better in another week to 10 days we might go for short run of increased prednisone. He already has had some physical therapy on the shoulders so needs to continue with gentle exercises. There are no signs of giant cell arteritis. His vitamin-D level was good when last checked so he should stay with the current vitamin-D supplement to manage his osteopenia. A follow-up in 3 months seems reasonable. Orders: Orders Erythrocyte Sedimentation Rate Today M35.3 - Polymyalgia rheumatica C Reactive Protein Today M35.3 - Polymyalgia rheumatica Coding Level of Care Code Tele Est Pt Level 3 (13104) Diagnoses Osteopenia M85.80 Osteoarthritis of shoulders, bilateral M19.011; M19.012 Polymyalgia rheumatica M35.3
== END 2023-01-23 12:03 | disposition home or self-care (01) ==
PROVIDERS: PCP Pediatrics; Visit Provider Internal Medicine Rheumatology
DX: M35.3 Polymyalgia rheumatica (principal); M85.80 Other specified disorders of bone density and structure, unspecified site; M19.011 Primary osteoarthritis, right shoulder; M19.012 Primary osteoarthritis, left shoulder
CPT/HCPCS: 99213

== ENCOUNTER → 2023-01-23 11:07 | Outpatient (BNVA) | payer MEDICARE, SELFPAY | PROVIDERS: PCP Pediatrics; Visit Provider Internal Medicine Rheumatology | DX: M85.80 Other specified disorders of bone density and structure, unspecified site (principal); M19.011 Primary osteoarthritis, right shoulder; M19.012 Primary osteoarthritis, left shoulder; M35.3 Polymyalgia rheumatica | CPT/HCPCS: 99212 ==

== ENCOUNTER 2023-04-18 09:20 | Outpatient (REF) | payer MEDICARE, SELFPAY ==
[2023-04-18 10:38] LABS: C Reactive Protein < 0.10 mg/dL (< or = 0.50)
[2023-04-18 10:49] LABS: Erythrocyte Sedimentation Rate 9 MM/HR (0-15)
== END 2023-04-18 09:21 | disposition home or self-care (01) ==
LOC: HO.LAB 09:20
PROVIDERS: PCP Pediatrics; Visit Provider Internal Medicine Rheumatology
DX: M35.3 Polymyalgia rheumatica (principal)
CPT/HCPCS: 36415; 85652; 86140

== ENCOUNTER 2023-05-30 14:18 | Outpatient (AMB) | payer MEDICARE, SELFPAY ==
--- NOTE | 2023-05-30 14:19 | MHC.OFFVIS ---
Intake Vital Signs 05/30/23 14:25 Height 5 ft 11 in Weight 168 lb 6.931 oz BMI 23.5 BP 120/60 Blood Pressure Location Rt brachial Position Sitting Pulse 60 Pulse Source Pulse Oximeter Temp 97.0 F Temp Source Skin Intake Visit Reasons: pmr/oa with psychiatric arnp/COFIRMED Intake Note: Patient last seen by Dr Vale 01/23/23 presents today for follow up and test results. 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 Mares 72yoM returns for evaluation of his PMR. At last visit he was told to take prednisone taking 4 mg the morning and 2.5 mg in the afternoon but he has been doing 2mg in th am and 2.5mg in the pm. The joints are mostly comfortable but he does get some twinges in the shoulders with his weightlifting. That seems to have resulted in bilateral shoulder pain, currently right greater than the left. This is over the top of the shoulder, posteriorly and in the deltoids. It is present most of the day and night. When he took a break from his yard work it did improve to some degree. He does take some acetaminophen for this with some benefit. There is no headache, jaw claudication or visual disturbance. COUNTS INCLUDE 234 BEDS AT THE [facility] Medical History (Updated 06/03/23 @ 08:34 by TWAN Stauffer) Decreased muscle strength High cholesterol Surgical History No history of previous surgery Family History Father Colon polyps, Onset Age: 70 Prostate cancer, Onset Age: 70 Abdominal aortic aneurysm, Onset Age: 82 Mother Hypertension Thyroid disease Social History Household Members: Spouse Housing: House Alcohol intake: current Alcohol intake frequency: a few times a month Alcohol type: beer Patient Tobacco Use Status: Never used Tobacco e-Cigarette/Vaping Use: Never Used service: No Current occupational status: retired 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 Constitutional: Non-toxic appearing. No acute distress. Well-developed and well-nourished. HEENT: Normocephalic and atraumatic. External auditory canals without erythema or edema bilaterally. No pharyngeal erythema or exudates. Skin: Warm and dry. No rashes or lesions noted. Neck: Full and painless range of motion. No cervical lymphadenopathy. Cardiovascular: Regular rate and rhythm. No murmurs, gallops, or rubs. No lower extremity edema. No JVD. Pulmonary: No respiratory distress. No accessory muscle usage. Musculoskeletal: Normal range of motion in joints throughout the body. No deformity or other signs of injury. no tenderness, swelling or erythema. No claudication upper or lower extremities, he can lift his hands without fatigue, he can get up and sit down without hesitation. Neuro: Alert and oriented x4. Cranial nerves 2-12 grossly intact. No focal deficits appreciated. Results Reviewed Results Reviewed: Laboratory Tests 01/20/23 01/20/23 04/18/23 13:29 13:29 09:29 ESR 7 9 C-Reactive Protein < 0.10 04/18/23 09:29 ESR C-Reactive Protein < 0.10 Assessment & Plan Assessment & Plan (1) Osteopenia: Comment: 08/2022 T scores: LS spine 0.4, femur -1.8, fem neck -1.2. FRAX risks 10%/2.9% Code(s): M85.80 - Other specified disorders of bone density and structure, unspecified site Qualifiers: Osteopenia location: multiple sites Qualified Code(s): M85.89 - Other specified disorders of bone density and structure, multiple sites (2) Osteoarthritis of shoulders, bilateral: Comment: mild OA in GH and AC joints Code(s): M19.011 - Primary osteoarthritis, right shoulder; M19.012 - Primary osteoarthritis, left shoulder Qualifiers: Osteoarthritis type: primary Qualified Code(s): M19.011 - Primary osteoarthritis, right shoulder; M19.012 - Primary osteoarthritis, left shoulder (3) Polymyalgia rheumatica: Comment: Onset?fall 2020; prednisone since 11/2021 Code(s): M35.3 - Polymyalgia rheumatica Plan Mr. Mares here for follow-up of his PMR. He has been treated for PMR for the last 2 years and I think at this point it is resolved. The pattern of his shoulder pain suggest mechanical reasons as is that it developed after an increased amount of physical activity. The acute phase reactants remain normal also suggesting the pain is not inflammatory in etiology. He has known glenohumeral osteoarthritis so I think it is a flare up the OA symptoms with his extra physical activity. He already has had some physical therapy on the shoulders so needs to continue with gentle exercises. We will proceed with prednisone 4.5 mg q.d. for the next month then continue to reduce by 1 mg each month. There are no signs of giant cell arteritis. His vitamin-D level was good when last checked so he should stay with the current vitamin-D supplement to manage his osteopenia. A follow-up in 3 months seems reasonable. I spent 25 minutes reviewing history, evaluating patient and documenting Orders: Orders Creatine Kinase Total 05/30/23 M35.3 - Polymyalgia rheumatica, M62.81 - Muscle weakness (generalized) Comprehensive Met. Panel 05/30/23 M35.3 - Polymyalgia rheumatica, M62.81 - Muscle weakness (generalized) Complete Blood Count Auto Diff 05/30/23 M35.3 - Polymyalgia rheumatica, M62.81 - Muscle weakness (generalized) C Reactive Protein 05/30/23 M35.3 - Polymyalgia rheumatica, M62.81 - Muscle weakness (generalized) Erythrocyte Sedimentation Rate 05/30/23 M35.3 - Polymyalgia rheumatica, M62.81 - Muscle weakness (generalized) Coding Level of Care Code Est Pt Level 3 (81552) Diagnoses Osteopenia of multiple sites M85.89 Osteopenia location: multiple sites Primary osteoarthritis of both shoulders M19.011; M19.012 Osteoarthritis type: primary Polymyalgia rheumatica M35.3
[2023-05-30 14:25] VITALS: BP 120/60; PULSE 60; TEMP 36.1; BMI 23.5
== END 2023-05-30 14:53 | disposition home or self-care (01) ==
PROVIDERS: PCP Pediatrics; Visit Provider Nurse Practitioner Family
DX: M85.89 Other specified disorders of bone density and structure, multiple sites (principal); M19.011 Primary osteoarthritis, right shoulder; M19.012 Primary osteoarthritis, left shoulder; M35.3 Polymyalgia rheumatica
CPT/HCPCS: 99213

== ENCOUNTER → 2023-05-30 14:18 | Outpatient (BNVA) | payer MEDICARE, SELFPAY | PROVIDERS: PCP Pediatrics; Visit Provider Nurse Practitioner Family | DX: M35.3 Polymyalgia rheumatica (principal); M62.81 Muscle weakness (generalized); M85.89 Other specified disorders of bone density and structure, multiple sites; M19.011 Primary osteoarthritis, right shoulder; M19.012 Primary osteoarthritis, left shoulder | CPT/HCPCS: 99212 ==

== ENCOUNTER 2023-08-21 10:12 | Outpatient (REF) | payer MEDICARE, SELFPAY ==
[2023-08-21 10:34] LABS: MANUAL DIFF FLAG NO
[2023-08-21 11:03] LABS: Basophils Percent Auto 0.6 % (0-2); Eosinophils Absolute Auto 0.1 X10*3/uL (0.0-0.4); Eosinophils Percent Auto 1.4 % (0-4); Hematocrit 41.9 % (42.0-52.0); Hemoglobin 14.6 g/dl (14.0-18.0); Imm Gran Abs Auto 0.02 X10*3/uL (0.00-0.03); Imm Gran Pct Auto 0.3 % (0.0-0.4); Lymphocytes Absolute Auto 1.5 X10*3/uL (1.2-4.9); Lymphocytes Percent Auto 21.4 % (20-40); Mean Corpuscular HGB Conc 34.8 g/dl (31.0-36.0); Mean Corpuscular Volume 91.9 fL (80.0-98.0); Mean Platelet Volume 9.8 fL (9.4-12.4); Monocytes Absolute Auto 0.5 X10*3/uL (0.1-1.2); Monocytes Percent Auto 7.1 % (2-11); Neutrophils Absolute Auto 4.8 x10*3/uL (2.0-8.3); Neutrophils Percent Auto 69.2 % (45-73); Platelet Count 269 X10*3/uL (160-400); Red Blood Count 4.56 X10*6/uL (4.60-5.80); Red Cell Distribution Width 11.9 % (11.0-16.0); White Blood Count 6.9 X10*3/uL (4.8-10.8)
[2023-08-21 11:27] LABS: Alanine Aminotransferase 12 U/L (0-40); Albumin Level 4.3 g/dL (3.5-5.0); Alkaline Phosphatase 73 U/L (39-117); Anion Gap 11 (12-20); Aspartate Amino Transferase 18 U/L (5-37); Bilirubin Total 0.5 mg/dL (0.0-1.0); Blood Urea Nitrogen 29 mg/dL (9-16); C Reactive Protein 0.23 mg/dL (< or = 0.50); Carbon Dioxide 30 mmol/L (22-29); Chloride 104 mmol/L (96-108); Estimated Glomerular Filt Rate > 60; Glucose Random 115 mg/dL (60-115); Potassium 4.9 mmol/L (3.3-5.1); Sodium 140 mmol/L (135-145); Total Protein 7.2 g/dL (6.5-8.0)
[2023-08-21 12:05] LABS: Erythrocyte Sedimentation Rate 14 MM/HR (0-15)
== END 2023-08-21 10:13 | disposition home or self-care (01) ==
LOC: HO.LAB 10:12
PROVIDERS: PCP Pediatrics; Visit Provider Nurse Practitioner Family
DX: M35.3 Polymyalgia rheumatica (principal); M62.81 Muscle weakness (generalized)
CPT/HCPCS: 36415; 80053; 82550; 85025; 85652; 86140

== ENCOUNTER 2023-09-12 10:21 | Outpatient (AMB) | payer MEDICARE, SELFPAY ==
[2023-09-12 10:25] VITALS: BP 138/70; PULSE 89; O2SAT 98; BMI 23.4
--- NOTE | 2023-09-12 10:25 | MHC.OFFVIS ---
Vital Signs 09/12/23 10:25 Height 5 ft 11 in Weight 167 lb 15.876 oz BMI 23.4 BP 138/70 Blood Pressure Location Rt brachial Position Sitting Pulse 89 Pulse Source Pulse Oximeter Pulse Oximetry (%) 98 Oxygen Delivery Method Room Air Intake Visit Reasons: pmr Intake Note: Patient last seen by Ruth Rollins 05/30/23 presents today for follow up. Allergies Vicodin Allergy (Intermediate, Uncoded 09/12/23 10:28) Vomiting oxycodone Adverse Reaction (Unknown, Uncoded 09/12/23 10:28) Dizziness Medication List - Last Reconciled 09/12/23 by Ziyad Irizarry MD aspirin 81 mg PO DAILY cholecalciferol (vitamin D3) 50 mcg PO DAILY metformin ER 500 mg PO BID pravastatin 40 mg PO BEDTIME prednisone 4 mg (4 x 1 mg) PO DAILY prednisone take one 2.5mg tab in PM; 4 of the 1mg tabs in the AM HPI Comments Details: This is a 72-year-old male with PMR who returns for follow-up. Patient stated that tapered his prednisone down to 2.5 mg daily about 2 weeks ago when he started feeling some right shoulder pain and stiffness as well as bilateral groin pain especially when sitting down for some time and then getting up. Denies any significant morning stiffness. Increased his prednisone back to 5 mg daily and it only provided little relief. 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 Review of Systems [facility] [place] Reports arthralgias, Denies joint swelling and Reports stiffness Physical Exam Vital Signs: Last Vital Signs Pulse 89 09/12/23 10:25 BP 138/70 09/12/23 10:25 Pulse Ox 98 09/12/23 10:25 Oxygen Delivery Method Room Air 09/12/23 10:25 BMI result Body Mass Index 23.4 Const General: cooperative, healthy appearing and comfortable Nutritional Appearance: average body habitus Orientation/consciousness: patient oriented x3 Limitations: no limitations HEENT Head: Yes normocephalic and Yes atraumatic Mouth: moist mucous membranes Resp Effort & Inspection: normal respiratory effort and able to speak in complete sentences Auscultation: clear to auscultation bilaterally Cardio Rate: regular rate Rhythm: regular rhythm Skin General skin exam: no rashes or lesions noted Neuro General: patient oriented x3 Extrem Other: No active synovitis both hands wrists elbows Mildly limited shoulder abduction, stiffness with moment Equivocal empty can test and Speed's test on the right Positive lift-off test on the right No hip pain with manipulation Negative Fabere test bilaterally Negative straight leg raise test bilaterally No knee pain with flexion-extension bilaterally Assessment & Plan Assessment & Plan (1) Polymyalgia rheumatica: Comment: Onset?fall 2020; prednisone since 11/2021 Code(s): M35.3 - Polymyalgia rheumatica Category: Medical Plan: This is a 32-year-old male with PMR who presents for follow-up. This is his 1st visit with me. He used to follow-up with Ruth Rollins. Patient started having slightly worsening bilateral groin pain stiffness as well as right shoulder pain about 2 weeks ago after he had tapered his prednisone to 2.5 mg daily. Inflammatory markers at that time were unremarkable. A increase it back to 5 mg daily without much improvement. Likely his PMR is well controlled and the majority of complaints are degenerative in nature. Advised patient to lower prednisone by 1 mg per month. On prednisone 4 mg daily September, 3 mg daily in October and 2 mg daily and November. Labs before next visit in 3 months (2) Osteopenia: Comment: 08/2022 T scores: LS spine 0.4, femur -1.8, fem neck -1.2. FRAX risks 10%/2.9% Code(s): M85.80 - Other specified disorders of bone density and structure, unspecified site Category: Medical Qualifiers: Osteopenia location: multiple sites Qualified Code(s): M85.89 - Other specified disorders of bone density and structure, multiple sites Plan: Continue with vitamin-D supplementation (3) Osteoarthritis of shoulders, bilateral: Comment: mild OA in GH and AC joints Code(s): M19.011 - Primary osteoarthritis, right shoulder; M19.012 - Primary osteoarthritis, left shoulder Category: Medical Qualifiers: Osteoarthritis type: primary Qualified Code(s): M19.011 - Primary osteoarthritis, right shoulder; M19.012 - Primary osteoarthritis, left shoulder (4) Internal derangement of right shoulder: Code(s): M24.811 - Other specific joint derangements of right shoulder, not elsewhere classified Category: Medical Plan: Given ongoing shoulder pain, I would like to rule out internal derangement such as labral tear or tendon tear. Right shoulder MRI ordered Plan I spent 47 minutes reviewing patient's chart, evaluating patient, ordering diagnostic workup, counseling patient and documenting in the chart Orders: Orders Comprehensive Met. Panel 3 Months M35.3 - Polymyalgia rheumatica Complete Blood Count Auto Diff 3 Months M35.3 - Polymyalgia rheumatica C Reactive Protein 3 Months M35.3 - Polymyalgia rheumatica Erythrocyte Sedimentation Rate 3 Months M35.3 - Polymyalgia rheumatica MR shoulder RT wo con Today M24.811 - Other specific joint derangements of right shoulder, not elsewhere classified Cyclic Citrullinated Peptide 3 Months M25.50 - Pain in unspecified joint Coding Level of Care Code Est Pt Level 5 (88019) Diagnoses Polymyalgia rheumatica M35.3 Osteopenia of multiple sites M85.89 Osteopenia location: multiple sites Primary osteoarthritis of both shoulders M19.011; M19.012 Osteoarthritis type: primary Internal derangement of right shoulder M24.811
== END 2023-09-12 10:49 | disposition home or self-care (01) ==
PROVIDERS: PCP Pediatrics; Visit Provider Student in an Organized Health Care Education/Training Program
DX: M35.3 Polymyalgia rheumatica (principal); M85.89 Other specified disorders of bone density and structure, multiple sites; M19.011 Primary osteoarthritis, right shoulder; M19.012 Primary osteoarthritis, left shoulder; M24.811 Other specific joint derangements of right shoulder, not elsewhere classified
CPT/HCPCS: 99215

== ENCOUNTER → 2023-09-12 10:21 | Outpatient (BNVA) | payer MEDICARE, SELFPAY | PROVIDERS: PCP Pediatrics; Visit Provider Student in an Organized Health Care Education/Training Program | DX: M35.3 Polymyalgia rheumatica (principal); M85.89 Other specified disorders of bone density and structure, multiple sites; M19.011 Primary osteoarthritis, right shoulder; M19.012 Primary osteoarthritis, left shoulder; M24.811 Other specific joint derangements of right shoulder, not elsewhere classified; Z79.52 Long term (current) use of systemic steroids | CPT/HCPCS: 99212 ==

== ENCOUNTER 2023-11-18 08:59 | Outpatient (REF) | payer MEDICARE, SELFPAY ==
--- NOTE | ~2023-11-18 | MR_ITS ---
EXAMINATION: MRI RIGHT SHOULDER WITHOUT CONTRAST CLINICAL INFORMATION: Right shoulder pain. COMPARISON: Radiographs 02/23/2021. TECHNIQUE: MRI of the shoulder without contrast is performed on a 1.5 Maggi high-field scanner. FINDINGS: ROTATOR CUFF: Chronic high-grade undersurface partial tearing throughout the distal supraspinatus tendon without a definite full-thickness tear. Small interstitial partial tear of the subscapularis tendon insertion. No muscle atrophy or fatty infiltration. BICEPS: Normal. CORACOACROMIAL ARCH: The undersurface of the acromion is flat with minimal subacromial spurring. Moderate acromioclavicular osteoarthritis. LABRUM/CAPSULE: No definite labral tear. GLENOHUMERAL JOINT/MARROW: Small marginal osteophytes along the glenoid rim and the humeral head and neck junction with areas of mild cartilage thinning and surface irregularity, most prominent at the superomedial aspect of the humeral head. Trace joint effusion. ADDITIONAL FINDINGS: None. MR/MR shoulder RT wo con IMPRESSION: 1. Chronic high-grade undersurface partial tearing of the supraspinatus tendon. 2. Small interstitial partial tear of the subscapularis tendon insertion. 3. Moderate acromioclavicular and mild glenohumeral osteoarthritis. Electronically signed by: Jim Verma MD 11/19/2023 01:56 PM EDT
== END 2023-11-18 09:00 | disposition home or self-care (01) ==
LOC: HO.MRI 08:59
PROVIDERS: PCP Pediatrics; Visit Provider Student in an Organized Health Care Education/Training Program
DX: M24.811 Other specific joint derangements of right shoulder, not elsewhere classified (principal)
CPT/HCPCS: 73221

== ENCOUNTER 2023-12-03 10:32 | Outpatient (REF) | payer MEDICARE, SELFPAY ==
[2023-12-03 10:55] LABS: MANUAL DIFF FLAG NO
[2023-12-03 11:35] LABS: Basophils Absolute Auto 0.1 X10*3/uL (0.0-0.2); Basophils Percent Auto 0.7 % (0-2); Eosinophils Absolute Auto 0.1 X10*3/uL (0.0-0.4); Eosinophils Percent Auto 1.3 % (0-4); Hematocrit 42.4 % (42.0-52.0); Hemoglobin 14.4 g/dl (14.0-18.0); Imm Gran Abs Auto 0.02 X10*3/uL (0.00-0.03); Imm Gran Pct Auto 0.3 % (0.0-0.4); Lymphocytes Absolute Auto 1.5 X10*3/uL (1.2-4.9); Lymphocytes Percent Auto 20.3 % (20-40); Mean Corpuscular Hemoglobin 31.4 pg (27.0-33.0); Mean Corpuscular Volume 92.4 fL (80.0-98.0); Mean Platelet Volume 10.1 fL (9.4-12.4); Monocytes Absolute Auto 0.5 X10*3/uL (0.1-1.2); Monocytes Percent Auto 6.9 % (2-11); Neutrophils Absolute Auto 5.3 x10*3/uL (2.0-8.3); Neutrophils Percent Auto 70.5 % (45-73); Platelet Count 276 X10*3/uL (160-400); Red Blood Count 4.59 X10*6/uL (4.60-5.80); Red Cell Distribution Width 12.2 % (11.0-16.0); White Blood Count 7.5 X10*3/uL (4.8-10.8)
[2023-12-03 12:11] LABS: Erythrocyte Sedimentation Rate 18 MM/HR (0-15)
[2023-12-03 12:18] LABS: Alanine Aminotransferase 12 U/L (0-40); Albumin Level 4.3 g/dL (3.5-5.0); Alkaline Phosphatase 76 U/L (39-117); Anion Gap 11 (12-20); Aspartate Amino Transferase 19 U/L (5-37); Bilirubin Total 0.6 mg/dL (0.0-1.0); Blood Urea Nitrogen 28 mg/dL (9-16); C Reactive Protein 0.37 mg/dL (< or = 0.50); Calcium 10.1 mg/dL (8.4-10.2); Carbon Dioxide 32 mmol/L (22-29); Chloride 104 mmol/L (96-108); Estimated Glomerular Filt Rate > 60; Glucose Random 112 mg/dL (60-115); Potassium 5.1 mmol/L (3.3-5.1); Sodium 142 mmol/L (135-145); Total Protein 7.3 g/dL (6.5-8.0)
[2023-12-08 15:18] LABS: Cyclic Citrullinated Peptide <16 UNITS
== END 2023-12-03 10:33 | disposition home or self-care (01) ==
LOC: HO.LAB 10:32
PROVIDERS: PCP Pediatrics; Visit Provider Student in an Organized Health Care Education/Training Program
DX: M35.3 Polymyalgia rheumatica (principal); M25.50 Pain in unspecified joint
CPT/HCPCS: 36415; 80053; 85025; 85652; 86140; 86200

== ENCOUNTER 2023-12-10 11:33 | Outpatient (REF) | payer MEDICARE, SELFPAY ==
[2023-12-11 08:53] LABS: HBS Num1 0.86 mIU/mL (0-7.99); HBc Num1 0.22 S/CO (0.00-0.79); HBsAGNum1 0.43 S/CO (0.00-0.99); Hepatitis A Antibody IgM 0.14 Index (0-0.79); Hepatitis B Core Antibody Nonreactive (Nonreactive); Hepatitis B Surface Antigen Negative (Negative); ~HepC Num1 0.17 S/CO (0.00-0.79); ~Hepatitis A Antibody IgM Nonreactive (Nonreactive); ~Hepatitis B Surface Antibody NONREACTIVE (Nonreactive); ~Hepatitis C Antibody Nonreactive (Nonreactive)
[2023-12-13 00:34] LABS: TS Negative Control Passed; TS Panel A 0; TS Panel B 0; TS Positive Control Passed; TSpotTB Negative (Negative)
== END 2023-12-10 11:34 | disposition home or self-care (01) ==
LOC: HO.LAB 11:33
PROVIDERS: PCP Pediatrics; Visit Provider Student in an Organized Health Care Education/Training Program
DX: Z11.59 Encounter for screening for other viral diseases (principal); Z11.7 Encounter for testing for latent tuberculosis infection; M35.3 Polymyalgia rheumatica; M85.89 Other specified disorders of bone density and structure, multiple sites; M19.011 Primary osteoarthritis, right shoulder; M19.012 Primary osteoarthritis, left shoulder; M75.121 Complete rotator cuff tear or rupture of right shoulder, not specified as traumatic; Z79.899 Other long term (current) drug therapy
CPT/HCPCS: 36415; 86481; 86704; 86706; 86709; 86803; 87340; 99212

== ENCOUNTER 2023-12-10 11:33 | Outpatient (AMB) | payer MEDICARE, SELFPAY ==
--- NOTE | 2023-12-10 11:36 | A.OFFVIS_ITS ---
Vital Signs 12/10/23 11:40 Height 5 ft 11 in Weight 169 lb 12.095 oz BMI 23.7 BP 116/64 Blood Pressure Location Rt brachial Position Sitting Pulse 64 Pulse Source Pulse Oximeter Pulse Oximetry (%) 98 Oxygen Delivery Method Room Air Intake Visit Reasons: PMR Intake Note: Patient presents for PMR. Allergies oxycodone Allergy (Severe, Uncoded 12/10/23 11:39) Dizziness Vicodin Allergy (Severe, Uncoded 12/10/23 11:39) Vomiting Medication List - Last Reconciled 12/10/23 by Ziyad Irizarry MD aspirin 81 mg PO DAILY cholecalciferol (vitamin D3) 50 mcg PO DAILY metformin ER 500 mg PO BID pravastatin 40 mg PO BEDTIME prednisone take one 2.5mg tab in PM; 4 of the 1mg tabs in the AM prednisone 2 mg (2 x 1 mg) PO QAM HPI Comments Details: This is a 73-year-old male with PMR who returns for follow-up. He has been slowly tapering his prednisone by 1 mg per month. He has been taking prednisone 2 mg daily for the last month. He states that he is starting to have bilateral shoulder pain and stiffness, worse on the right as well as bilateral groin and buttock pain, morning stiffness. 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 Review of Systems [facility] [place] Reports arthralgias, Denies joint swelling and Reports stiffness Physical Exam Vital Signs: Last Vital Signs Pulse 64 12/10/23 11:40 BP 116/64 12/10/23 11:40 Pulse Ox 98 12/10/23 11:40 Oxygen Delivery Method Room Air 12/10/23 11:40 BMI result Body Mass Index 23.7 Const General: cooperative, healthy appearing and comfortable Nutritional Appearance: average body habitus Orientation/consciousness: patient oriented x3 Limitations: no limitations HEENT Head: Yes normocephalic and Yes atraumatic Mouth: moist mucous membranes Resp Effort & Inspection: normal respiratory effort and able to speak in complete sentences Auscultation: clear to auscultation bilaterally Cardio Rate: regular rate Rhythm: regular rhythm Skin General skin exam: no rashes or lesions noted Neuro General: patient oriented x3 Extrem Other: No active synovitis both hands wrists elbows Mildly limited right shoulder abduction, stiffness with moment Bilateral groin pain with foot inversion Bilateral trochanteric area and buttock tenderness Assessment & Plan Assessment & Plan (1) Polymyalgia rheumatica: Comment: Onset?fall 2020; prednisone since 11/2021 Code(s): M35.3 - Polymyalgia rheumatica Category: Medical Plan: This is a 73-year-old male with PMR who presents for follow-up. He has been tapering his prednisone by 1 mg per month. He has been taking prednisone 2 mg daily. Been having return of symptoms of morning stiffness, shoulder buttock and groin pain. Inflammatory markers elevated again. It seems that that patient requires prednisone 5 mg daily to control his PMR. Have not been able to lower it anymore than that. If patient is to stay on prednisone he will likely need to stay on prednisone 5 mg daily long-term and patient has other comorbidities that can definitely be worsened by prednisone. Patient has diabetes, osteopenia and cataracts. It is better to switch him to a DMARDs so prednisone can be tapered off or the lowest possible dose. Discussed risks and benefits of Kevzara. Patient agreed to proceed. Will start prior authorization for Kevzara Increase prednisone back to 5 mg daily Check hepatitis panel and T spot today Labs before next visit in 2 months (2) Osteopenia: Comment: 08/2022 T scores: LS spine 0.4, femur -1.8, fem neck -1.2. FRAX risks 10%/2.9% Code(s): M85.80 - Other specified disorders of bone density and structure, unspecified site Category: Medical Qualifiers: Osteopenia location: multiple sites Qualified Code(s): M85.89 - Other specified disorders of bone density and structure, multiple sites Plan: Continue with vitamin-D supplementation (3) Osteoarthritis of shoulders, bilateral: Comment: mild OA in GH and AC joints Code(s): M19.011 - Primary osteoarthritis, right shoulder; M19.012 - Primary osteoarthritis, left shoulder Category: Medical Qualifiers: Osteoarthritis type: primary Qualified Code(s): M19.011 - Primary osteoarthritis, right shoulder; M19.012 - Primary osteoarthritis, left shoulder (4) Right rotator cuff tear: Code(s): M75.101 - Unspecified rotator cuff tear or rupture of right shoulder, not specified as traumatic Category: Medical Qualifiers: Rotator cuff tear extent: complete Rotator cuff tear trauma status: nontraumatic Qualified Code(s): M75.121 - Complete rotator cuff tear or rupture of right shoulder, not specified as traumatic Plan: Appointment with Orthopedics in a few days Plan I spent 47 minutes reviewing patient's chart, evaluating patient, ordering diagnostic workup, counseling patient and documenting in the chart Orders: Orders Complete Blood Count Auto Diff 2 Months M35.3 - Polymyalgia rheumatica C Reactive Protein 2 Months M35.3 - Polymyalgia rheumatica Hepatitis A,B,C Profile Today Z11.59 - Encounter for screening for other viral diseases Comprehensive Met. Panel 2 Months M35.3 - Polymyalgia rheumatica Erythrocyte Sedimentation Rate 2 Months M35.3 - Polymyalgia rheumatica T Spot TB Today Z11.7 - Encounter for testing for latent tuberculosis infection Coding Level of Care Code Est Pt Level 5 (23871) Diagnoses Polymyalgia rheumatica M35.3 Osteopenia of multiple sites M85.89 Osteopenia location: multiple sites Primary osteoarthritis of both shoulders M19.011; M19.012 Osteoarthritis type: primary Nontraumatic complete tear of right rotator cuff M75.121 Rotator cuff tear extent: complete Rotator cuff tear trauma status: nontraumatic
[2023-12-10 11:40] VITALS: BP 116/64; PULSE 64; O2SAT 98; BMI 23.7
== END 2023-12-10 12:06 | disposition home or self-care (01) ==
PROVIDERS: PCP Pediatrics; Visit Provider Student in an Organized Health Care Education/Training Program
DX: M35.3 Polymyalgia rheumatica (principal); M85.89 Other specified disorders of bone density and structure, multiple sites; M19.011 Primary osteoarthritis, right shoulder; M19.012 Primary osteoarthritis, left shoulder; M75.121 Complete rotator cuff tear or rupture of right shoulder, not specified as traumatic
CPT/HCPCS: 99215

== ENCOUNTER 2023-12-16 09:40 | Outpatient (AMB) | payer MEDICARE, SELFPAY ==
[2023-12-16 09:57] VITALS: BMI 23.6
--- NOTE | 2023-12-16 09:57 | A.OFFVIS_ITS ---
Vital Signs 12/16/23 09:57 Height 5 ft 11 in Weight 169 lb BMI 23.6 Intake Visit Reasons: Right shoulder pain and weakness Intake Note: Arias is a 73 year old left hand dominant male who presents with complaints of progressively worsening right shoulder pain and weakness. The patient describes his pain as sharp in nature. His pain has gotten worse over the last few years in spite of continued non operative treatments. He has had cortisone injections in the past which gave him only temporary relief. He reports mild weakness when lifting his right hand above shoulder height. He has failed the last 6 weeks of conservative treatment. He has done physical therapy exercises which aggravated his pain. He has also tried Tylenol and anti-inflammatory medicines which gave him minimal relief. Allergies oxycodone Allergy (Severe, Uncoded 12/10/23 11:39) Dizziness Vicodin Allergy (Severe, Uncoded 12/10/23 11:39) Vomiting Medication List - Last Reconciled 12/16/23 by Dg Barnett MD aspirin 81 mg PO DAILY cholecalciferol (vitamin D3) 50 mcg PO DAILY Kevzara (sarilumab) 200 mg (1.14 mL) subcut Q2W NS metformin ER 500 mg PO BID pravastatin 40 mg PO BEDTIME prednisone take one 2.5mg tab in PM; 4 of the 1mg tabs in the AM prednisone 2 mg (2 x 1 mg) PO QAM [facility] Medical History Decreased muscle strength High cholesterol Surgical History No history of previous surgery Family History Father Colon polyps, Onset Age: 70 Prostate cancer, Onset Age: 70 Abdominal aortic aneurysm, Onset Age: 82 Mother Hypertension Thyroid disease Social History Household Members: Spouse Housing: House Alcohol intake: current Alcohol intake frequency: a few times a month Alcohol type: beer Patient Tobacco Use Status: Never used Tobacco e-Cigarette/Vaping Use: Never Used service: No Current occupational status: retired 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 Physical Exam Vital Signs: BMI result Body Mass Index 23.6 Const Other: Well-nourished well-developed very friendly male awake alert and oriented x3 in no acute distress Extrem Other: Bilateral upper extremity examination shows good capillary refill, no skin lesions noted, normal sensation light touch Right shoulder examination shows slightly decreased range of motion when compared to his left shoulder, 4/5 strength with supraspinatus testing, positive impingement signs, tenderness over his acromioclavicular joint, no instability Results Reviewed Results Reviewed: MRI of the patient's right shoulder show severe acromioclavicular joint narrowing, a type 2 acromion, signal change within the supraspinatus tendon most likely due to a small full-thickness rotator cuff tear Assessment & Plan Assessment & Plan (1) Right rotator cuff tear: Code(s): M75.101 - Unspecified rotator cuff tear or rupture of right shoulder, not specified as traumatic Category: Medical Qualifiers: Rotator cuff tear extent: complete Rotator cuff tear trauma status: nontraumatic Qualified Code(s): M75.121 - Complete rotator cuff tear or rupture of right shoulder, not specified as traumatic Plan Mr. Mares presents with progressively worsening right shoulder pain and weakness due to impingement syndrome, acromioclavicular joint arthritis and most likely a small full-thickness rotator cuff tear. I had a lengthy discussion with the patient regarding the treatment options. At this point he has failed continued non operative treatments. The risks and benefits of right shoulder surgery were discussed at length with the patient. The patient is interested in proceeding with surgery later this year or early next year. He will contact my office to pick a surgery date when he is ready to do so. Surgery will most likely involve right shoulder diagnostic arthroscopy with distal clavicle excision, acromioplasty and rotator cuff repair showed a full-thickness tear be found at the time of his surgery. He will continue with his range of motion exercises in the meantime to prevent stiffness. Feel free to call me at any time should questions regarding his orthopedic management arise. Thank you very much for asking me to see this very friendly gentleman. I spent 20 minutes in reviewing the patient's records and imaging studies, seeing the patient and documenting in the medical record. Coding Level of Care Code New Pt Level 3 (25594) Complex EM visit Add On G2211 Diagnoses Nontraumatic complete tear of right rotator cuff M75.121 Rotator cuff tear extent: complete Rotator cuff tear trauma status: nontraumatic
== END 2023-12-16 10:25 | disposition home or self-care (01) ==
PROVIDERS: PCP Pediatrics; Visit Provider Orthopaedic Surgery
DX: M75.121 Complete rotator cuff tear or rupture of right shoulder, not specified as traumatic (principal)
CPT/HCPCS: 99204; G2211

== ENCOUNTER → 2023-12-16 09:40 | Outpatient (BNVA) | payer MEDICARE, SELFPAY | PROVIDERS: PCP Pediatrics; Visit Provider Orthopaedic Surgery | DX: M75.121 Complete rotator cuff tear or rupture of right shoulder, not specified as traumatic (principal) | CPT/HCPCS: 99202 ==

== ENCOUNTER 2024-02-16 11:13 | Outpatient (AMB) | payer MEDICARE, SELFPAY ==
[2024-02-16 11:17] VITALS: BP 132/80; PULSE 60; BMI 23.5
--- NOTE | 2024-02-16 11:17 | A.OFFVIS_ITS ---
Vital Signs 02/16/24 11:17 Height 5 ft 11 in Weight 168 lb 6.931 oz BMI 23.5 BP 132/80 Blood Pressure Location Lt brachial Position Sitting Pulse 60 Pulse Source Pulse Oximeter Intake Visit Reasons: PMR Intake Note: Patient last seen by doctor Ziyad Irizarry on 12/10/23. Presents today for PMR follow up and test results. Allergies oxycodone Allergy (Severe, Uncoded 02/16/24 11:18) Dizziness Vicodin Allergy (Severe, Uncoded 02/16/24 11:18) Vomiting Medication List - Last Reconciled 02/16/24 by Ziyad Irizarry MD aspirin 81 mg PO DAILY cholecalciferol (vitamin D3) 50 mcg PO DAILY metformin ER 500 mg PO BID pravastatin 40 mg PO BEDTIME prednisone Take 4 tabs daily for 1 month then 3 tabs daily for 1 month then 2 tabs daily for [id number] HPI Comments Details: This is a 73-year-old male with PMR who returns for follow-up. He started Actemra infusions, he received 2 doses so far, he states that he feels much better overall. Improved shoulder pain and stiffness, improved hip and groin pain. Morning stiffness essentially resolved. He is on prednisone 5 mg daily. He had some itching in his on the day after he received his 1st Actemra infusion [facility] Medical History Decreased muscle strength High cholesterol Surgical History No history of previous surgery Family History Father Colon polyps, Onset Age: 70 Prostate cancer, Onset Age: 70 Abdominal aortic aneurysm, Onset Age: 82 Mother Hypertension Thyroid disease Social History Household Members: Spouse Housing: House Alcohol intake: current Alcohol intake frequency: a few times a month Alcohol type: beer Patient Tobacco Use Status: Never used Tobacco e-Cigarette/Vaping Use: Never Used service: No Current occupational status: retired 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 Review of Systems Musc Denies arthralgias, Denies joint swelling and Denies stiffness Physical Exam Vital Signs: Last Vital Signs Pulse 60 02/16/24 11:17 BP 132/80 02/16/24 11:17 BMI result Body Mass Index 23.5 Const General: cooperative, healthy appearing and comfortable Nutritional Appearance: average body habitus Orientation/consciousness: patient oriented x3 Limitations: no limitations HEENT Head: Yes normocephalic and Yes atraumatic Mouth: moist mucous membranes Resp Effort & Inspection: normal respiratory effort and able to speak in complete sentences Auscultation: clear to auscultation bilaterally Cardio Rate: regular rate Rhythm: regular rhythm Skin General skin exam: no rashes or lesions noted Neuro General: patient oriented x3 Extrem Other: No active synovitis both hands wrists elbows Normal pain-free range of motion of both shoulders Negative empty can test, infraspinatus test and Speed's test bilaterally Bilateral groin pain with foot inversion resolved Bilateral trochanteric area and buttock tenderness resolved today Assessment & Plan Assessment & Plan (1) Polymyalgia rheumatica: Comment: Onset? fall 2020; prednisone since 11/2021 Actemra infusion added 01/2024 effective Code(s): M35.3 - Polymyalgia rheumatica Category: Medical Plan: This is a 73-year-old male with PMR who presents for follow-up. He received 2 doses of Actemra infusions so far. 8 milligram/kilogram every 4 weeks. Doing much better overall with significantly improved joint pains and stiffness. Reduce prednisone to 4 mg a day and taper by 1 mg per month Continue with Actemra infusions Labs before next visit in 3 months (2) Osteopenia: Comment: 08/2022 T scores: LS spine 0.4, femur -1.8, fem neck -1.2. FRAX risks 10%/2.9% Code(s): M85.80 - Other specified disorders of bone density and structure, unspecified site Category: Medical Qualifiers: Osteopenia location: multiple sites Qualified Code(s): M85.89 - Other specified disorders of bone density and structure, multiple sites Plan: Continue with vitamin-D supplementation (3) Osteoarthritis of shoulders, bilateral: Comment: mild OA in GH and AC joints Code(s): M19.011 - Primary osteoarthritis, right shoulder; M19.012 - Primary osteoarthritis, left shoulder Category: Medical Qualifiers: Osteoarthritis type: primary Qualified Code(s): M19.011 - Primary osteoarthritis, right shoulder; M19.012 - Primary osteoarthritis, left shoulder (4) Right rotator cuff tear: Code(s): M75.101 - Unspecified rotator cuff tear or rupture of right shoulder, not specified as traumatic Category: Medical Qualifiers: Rotator cuff tear extent: complete Rotator cuff tear trauma status: nontraumatic Qualified Code(s): M75.121 - Complete rotator cuff tear or rupture of right shoulder, not specified as traumatic Plan: Evaluated by Orthopedics, states that he will likely get surgery sometime in the coming year. Discussed with patient that from Rheumatology standpoint Actemra needs to be held perioperatively, patient to be on the lowest possible dose or completely tapered off of prednisone for best healing Plan I spent 27 minutes reviewing patient's chart, evaluating patient, ordering diagnostic workup, counseling patient and documenting in the chart Orders: Orders Complete Blood Count Auto Diff 3 Months M35.3 - Polymyalgia rheumatica Comprehensive Met. Panel 3 Months M35.3 - Polymyalgia rheumatica C Reactive Protein 3 Months M35.3 - Polymyalgia rheumatica Erythrocyte Sedimentation Rate 3 Months M35.3 - Polymyalgia rheumatica Medications: Changed From prednisone 2 mg (2 x 1 mg) PO QAM 60 tabs 1RF M35.3 - Polymyalgia rheumatica To prednisone Take 4 tabs daily for 1 month then 3 tabs daily for 1 month then 2 tabs daily for one- 270 tabs 0RF M35.3 - Polymyalgia rheumatica Discontinued prednisone Discontinued Reason: Doctor's Order take one 2.5mg tab in PM; 4 of the 1mg tabs in the AM 120 tabs 1RF M35.3 - Polymyalgia rheumatica Coding Level of Care Code Est Pt Level 4 (19993) Diagnoses Polymyalgia rheumatica M35.3 Osteopenia of multiple sites M85.89 Osteopenia location: multiple sites Primary osteoarthritis of both shoulders M19.011; M19.012 Osteoarthritis type: primary Nontraumatic complete tear of right rotator cuff M75.121 Rotator cuff tear extent: complete Rotator cuff tear trauma status: nontraumatic
== END 2024-02-16 11:39 | disposition home or self-care (01) ==
PROVIDERS: PCP Pediatrics; Visit Provider Student in an Organized Health Care Education/Training Program
DX: M35.3 Polymyalgia rheumatica (principal); M85.89 Other specified disorders of bone density and structure, multiple sites; M19.011 Primary osteoarthritis, right shoulder; M19.012 Primary osteoarthritis, left shoulder; M75.121 Complete rotator cuff tear or rupture of right shoulder, not specified as traumatic
CPT/HCPCS: 99214

== ENCOUNTER → 2024-02-16 11:13 | Outpatient (BNVA) | payer MEDICARE, SELFPAY | PROVIDERS: PCP Pediatrics; Visit Provider Student in an Organized Health Care Education/Training Program | DX: M35.3 Polymyalgia rheumatica (principal); M85.89 Other specified disorders of bone density and structure, multiple sites; M19.011 Primary osteoarthritis, right shoulder; M19.012 Primary osteoarthritis, left shoulder; M75.121 Complete rotator cuff tear or rupture of right shoulder, not specified as traumatic | CPT/HCPCS: 99212 ==

== ENCOUNTER → 2024-04-06 08:06 | Outpatient (BNVA) | payer MEDICARE, SELFPAY | PROVIDERS: PCP Pediatrics; Visit Provider Orthopaedic Surgery | DX: M25.811 Other specified joint disorders, right shoulder (principal); M25.511 Pain in right shoulder; Z79.891 Long term (current) use of opiate analgesic | CPT/HCPCS: 99212 ==

== ENCOUNTER 2024-04-16 10:13 | Day surgery (SDC) | payer MEDICARE, SELFPAY ==
[2024-03-31 09:44] VITALS: BMI 23.0
[2024-04-16] VITALS (7 sets, daily range): BP systolic 109–140; BP diastolic 46–68; PULSE 64–84; RESP 12–20; TEMP 36.1–36.8; O2SAT 97–100; BMI 23.7
--- NOTE | 2024-04-16 | ECG_ITS ---
Test Reason : PACU Blood Pressure : */* mmHG Vent. Rate : 77 BPM Atrial Rate : 77 BPM P-R Int : 192 ms QRS Dur : 76 ms QT Int : 370 ms P-R-T Axes : 62 5 26 degrees QTcB Int : 418 ms Normal sinus rhythm Septal infarct , age undetermined Abnormal ECG No previous ECGs available Referred By: Brissa Comer Electronically Signed By:
--- OUTSIDE RECORDS SUMMARY | 2024-04-16 11:08 | XMS_ITS | Encounter Summary ---
Author Organization [facility] Address [address] [place] [address] Care Team Providers Care School Age Lead Teacher Name Role Phone Priya Resendez MD Primary Care Provider [phone] Reason for Visit * Reason Onset Date Comments Results 02/26/2024 Encounter Details Date Type Department Care Team ([facility] Contact Info) Description 02/26/2024 Telephone Adult [facility] [address] [place] [id number] Priya Resendez MD [address] [place] [address] Results Social History Tobacco Use Types Packs/Day Years Used Date Smoking Tobacco: Never Smokeless Tobacco: Never Alcohol Use Standard Drinks/Week Comments Yes 3 (1 standard drink = 0.6 oz pur e alcohol) Housing Instability Answer Date Recorde d Are you worried that in the next 2 months you may not have stable housing? No 01/08/2024 Food Access & Nutrition Answer Date Rec orded Do you have access to a vari ety of food including fruits and vegetables? Yes 01/08/2024 Access to Healthcare Answer Date Record ed Within the last 3 months, ho w many times did you visit the emergency department for your medical care? 0 01/08/2024 Health Literacy Answer Date Recorded How often do you need to hav e someone help you when you read instructions, pamphlets, or other written material from your doctor or pharmacy? Never 01/08/2024 Caregiver: How often do you need to have someone help you when you read instructions, pamphlets, or other written material from your doctor or pharmacy? Not on file 01/08/2024 Financial Risk Answer Date Recorded How hard is it for you to pa y for the very basics like food, housing, medical care, and air conditioning / heating? Not very hard 01/08/2024 Transportation Answer Date Recorded Has the lack of transportati on kept you from meetings, work, or from getting things needed for daily living? No Has the lack of transportati on kept you from medical appointments or from getting medications? No 01/08/2024 Social Isolation Answer Date Recorded How often do you feel lonely or isolated from th ose around you? Never 01/08/2024 Food Risk Answer Date Recorded Within the past 12 months we worried whether our food would run out before we got money to buy more. Never true 01/08/2024 Within the past 12 months th e food we bought just didn't last and we didn't have money to get more. Never true 01/08/2024 Dependent Care Answer Date Recorded Do you need help finding or paying for care for your loved ones. For example, children's choir director or elderly care for an older adult? No 01/08/2024 Education Answer Date Recorded Do you think completing more education or training, like finishing a GED, going to college, or learning a trade, would be helpful for you? No 01/08/2024 Employment and Income Answer Date Recor ded During the last four weeks, have you been actively looking for work? No 01/08/2024 Living Situation Answer Date Recorded What is your living situation? 1 Sex and Gender Information Value Date Recorded Sex Assigned at Not on file Gender Identity Not on file Sexual Orientation Not on file Job Start Date Occupation Industry Not on file Not on file Not on file documented as of this encounter Progress Notes * Meghan Cabrera MA - 03/11/2024 12:31 PM EST Requested results via fax cover sheet. * Jay Mitchell - 02/26/2024 9:10 AM EST Pt is wondering about ultrasound results that were done a month ago in [place], [facility] Please call pt to let him konow of the results. documented in this encounter Plan of Treatment Upcoming Encounters Date Type Department Care Team (Late st Contact Info) Description 07/14/2024 8:45 AM EDT Office Visit Adult [facility] [address] [place] [address] Priya Resendez MD [address] [place] [address] documented as of this encounter Visit Diagnoses Not on filedocumented in this encounter Additional Health Concerns Assessment Noted Time PHQ-9 Depression Total Score: 0 01/08/20 24 9:44 AM EDT documented as of this encounter Care Teams School Age Lead Teacher Relationship Specialty Start Date End Date Priya Resendez MD [address] [place] [address] PCP - General 10/16/01 documented as of this encounter
--- OUTSIDE RECORDS SUMMARY | 2024-04-16 11:08 | XMS_ITS | Clinical Summary ---
Author Organization [facility] [address] [facility] lding Address [address] [place] [address] Phone Care Team Providers Care Senior Quality Manager Name Role Phone Priya Resendez MD Primary Care Provider [phone] Allergies Active Allergy Reactions Criticality Noted Date Comments Hydrocodone-Acetaminophen 04/20/2016 Medications Medication Sig Dispensed Refills Start Date End Date Status blood glucose control high,low (FreeStyle Control) solution USE DIRECTED 08/14/2020 Active blood sugar diagnostic (FreeStyle Lite Strips) test strip USE TO CHECK BLOOD SUGAR ONCE DAILY 06/23/2023 Active FREESTYLE LANCETS MISC CHECK BLOOD SUGAR DAILY 06/23/2023 Active metFORMIN XR (GLUCOPHAGE-XR) 500 mg 24 hr tablet Take 1 Tablet by mouth 2 times daily. 02/06/2023 Active predniSONE (DELTASONE) 5 mg tablet Take 1 Tablet by mouth 2 times daily. 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 Borderline right Iliac aneurysm 03/02. Ectasia, no aneurysm Renal cyst 07/08/2022 Overview (12/09/2023): Ultrasound. Follow up CT multiple bilateral simple cysts. 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 Seborrheic keratoses 10/15/2018 Palpitations 04/22/2018 Pure hypercholesterolemia 06/20/2006 Overview (12/09/2023): 06/14--diet, exercise Calculus of kidney 06/10/2006 Overview (12/09/2023): 1997 Lateral epicondylitis 06/10/2006 Overview (12/09/2023): IMO update Encounters Date Type Department Care Team Description 02/26/2024 Telephone Adult Medicine - [place] [address] [place] [id number] Priya Resendez MD Results 01/28/2024 7:56 AM EST - 01/28/2024 11:59 PM EST Hospital Encounter Radiology Department - [address] [address] Iliac artery aneurysm ([facility]) Discharge Disposition: Home or Self Care from Last 3 Months Immunizations Name Administration Dates Next Due H1N1 Inj Preservative Free 03/01/2009 Influenza trivalent, 0.5mL ( Fluzone High-dose) 65yo and older 01/09/2023,01/09/2022,12/27/2020,12/22,01/07/2019,12/25/2017,12/25/2016 Influenza trivalent, with pr eservative (Fluzone; Afluria) 6mo and older 01/08/2016,11/28/2014,01/07/2014,11/20,11/19/2011,11/14/2010,12/15/2009 ,11/29/2008,01/01/2008,02/10/2007,02/07 Moderna SARS-CoV-2 COVID-19, mRNA, LNP-S, preservative free 07/25/2021,01/22/2021,07/22/2020 Pneumococcal conjugate 13 va lent (Prevnar 13, PCV13) 2mo and older 04/17/2018 Pneumococcal polysaccharide 23 valent (Pneumovax 23) 2yo and older 03/26/2017 Td Tetanus diptheria (Tdvax) 7yo and older 07/19/2004,07/19/2004 Td, Unspecified 07/19/2004 Tdap Tetanus diptheria acell ular pertussis (Boostrix; Adacel) 7yo and older 03/26/2017,06/09/2006 Zoster Live 11/20/2012 Zoster recombinant (Shingrix ) 19yo and older 09/09/2022,07/03/2022 Family History Medical History Relation Name Comments Hyperlipidemia Brother Colon polyps Father 70's Other cancer Father Other: Aortic aneurism Father abdom inal--82 Other: Prostate cancer Father 70's Hypertension Mother Thyroid disease Mother Relation Name Status Comments Brother Alive Father Mother Sister 1 Alive Sister 2 Alive Social History Tobacco Use Types Packs/Day Years Used Date Smoking Tobacco: Never Smokeless Tobacco: Never Tobacco Cessation:Counseling Given: Not Answered Alcohol Use Standard Drinks/Week Comments Yes 3 [...] Record ed Within the last 3 months, carmella w many times did you visit the [...] care for your loved ones. For example, child adolescent psychiatrist or elderly care for an older adult? [...] file Not on file Not on file Obstetrics History Last Filed Vital Signs Vital Sign Reading Time Taken Comments Blood Pressure 126/78 01/14/2024 9:54 AM EST Pulse 73 01/14/2024 9:54 AM EST Temperature 36.3 ??C (97.3 ??F) 01/14/2024 9:54 AM ES T Respiratory Rate 16 01/14/2024 9:54 AM EST Oxygen Saturation - - Inhaled Oxygen Concentration - - Weight 76.4 kg (168 lb 6.4 oz) 01/14/2024 9:54 A M EST Height 180 cm (5' 10.87 ) 01/14/2024 9:54 AM EST Body Mass Index 23.58 01/14/2024 9:54 AM EST Plan of Treatment Upcoming Encounters Date Type Department Care Team (Late st Contact Info) Description 07/14/2024 8:45 AM EDT Office Visit Adult Medicine [facility] [address] [place] [phone] Priya Resendez MD [address] [place] [address] Health Maintenance Due Date Last Done Comments Diabetes: Annual Retina Eye Exam 11/01/1961 Falls Risk Assessment 02/16/2022 Medicare Annual Wellness Visit 02/16/2022 COVID-19 Vaccine ( season) 2023 07/25/2021, 01/22/2021, 07/22/2020, Additional history exists Diabetes: Blood Sugar Control Test (HGBA1C) 07/13/2024 01/14/2024, 07/14/2023, 07/14/2023 Depression Screening 01/07/2025 01/08/2024 Social Influencers of Health Screening 01/07/2025 01/08/2024 Diabetes: Annual Urine Albumin-Creatinine Ratio (uACR) 01/13/2025 01/14/2024, 07/14/2023 Diabetes: Annual Foot Exam 01/13/2025 01/14/2024, Diabetes: Annual GFR (Glomerular Filtration Rate) 01/13/2025 01/14/2024, 07/14/2023, 07/14/2023 Colorectal Cancer Screening: Colonoscopy 08/02/2025 08/03/2015 RSV Immunization Patients 60+ Years Old (1 - 1-dose 75+ series) 11/01/2026 DTaP,Tdap,and Td Vaccines (6 - Td or Tdap) 03/26/2027 03/26/2017, 06/09/2006, 07/19/2004, Additional history exists Cholesterol Screening (Lipid Panel) 01/13/2029 01/14/2024, 07/14/2023, 07/14/2023 Hepatitis C Screening Completed 11/19/2011 Pneumococcal Vaccine: 65+ Years Completed 04/17/2018, 03/26/2017 Zoster Vaccines Completed 09/09/2022, 06/09, 11/20/2012 Influenza Vaccine Completed 01/27/2024, , 01/09/2022, Additional history exists HIB Vaccines Aged Out No longer eligi ble based on patient's age to complete this topic HPV Vaccines Aged Out No longer eligi ble based on patient's age to complete this topic Hepatitis A Vaccines Aged Out No long er eligible based on patient's age to complete this topic Hepatitis B Vaccines Aged Out No long er eligible based on patient's age to complete this topic IPV Vaccines Aged Out No longer eligi ble based on patient's age to complete this topic MMR Vaccines Aged Out No longer eligi ble based on patient's age to complete this topic Meningococcal ACWY Vaccine Aged Out N o longer eligible based on patient's age to complete this topic RSV Immunization Patients Under 20 months Aged Out No longer eligible based on patient's age to complete this topic Varicella Vaccines Aged Out No longer eligible based on patient's age to complete this topic Procedures Procedure Name Priority Date/Time Associated Diagnosis Comments US ABDOMEN LIMITED Routine 01/28/2024 8: 20 AM EST Iliac artery aneurysm (CMS/HCC) MICROALBUMIN CREATININE URINE RATIO Routine 01/14/2024 10:43 AM EST DM (diabetes mellitus), type 2 with peripheral vascular complications (CMS/HCC) COMPREHENSIVE METABOLIC PANEL Routine 01/14/2024 10:43 AM EST DM (diabetes mellitus), type 2 with peripheral vascular complications (CMS/HCC) HEMOGLOBIN A1C Routine 01/14/2024 10:43 AM EST DM (diabetes mellitus), type 2 with peripheral vascular complications (CMS/HCC) LIPID PANEL WITH REFLEX TO DIRECT LDL Routine 01/14/2024 10:43 AM EST DM (diabetes mellitus), type 2 with peripheral vascular complications (CMS/HCC) HM DIABETES FOOT EXAM Routine 07/14/2023 COLONOSCOPY Routine 08/03/2015 HEPATITIS C SCREENING Routine 11/19/2011 from Last 3 Months or Most Recently Relevant to Health Maintenance Results * US Abdomen Limited (01/28/2024 8:20 AM EST) Anatomical Region Laterality Modality Body Ultrasound 03/18/2024 1:20 PM EST Narrative 03/18/2024 1:25 PM EST Ultrasound of the abdominal aorta. History follow-up right iliac aneurysm. Comparison with CT scan of the abdomen from 07/08/2022 and abdominal ultrasound from 06/28/2022. Examination was performed on 01/28/2024, submitted for interpretation today. There is no evidence of abdominal aortic aneurysm. Proximal aorta measures 2.7 cm, mid aorta measures 2.3 cm, distal aorta measures 2.2 cm. Proximal common iliac arteries are ectatic, measuring 1.6 cm on the right and 1.5 cm on the left. CONCLUSIONS: Ectatic proximal common iliac arteries as detailed. No focal aneurysm identified on today's study. -------- FINAL REPORT -------- Dictated By: Leslye Loco Dictated Date: 03/18/2024 13:20 ET Assigned Physician: Leslye Loco Reviewed and Electronically Signed By: Leslye Loco Signed Date: 03/18/2024 13:25 ET Workstation ID: [id number] Transcribed By: Self Edit Transcribed Date: 03/18/2024 13:20 ET Procedure Note Leslye Loco MD - 03/18/2024 Ultrasound of the abdominal aorta. History follow-up right iliac aneurysm. Comparison with CT scan of theabdomen from 07/08/2022 and abdominal ultrasound from 06/28/2022. Examination was performed on 01/28/2024, submitted for interpretationtoday. There is no evidence of abdominal aortic aneurysm. Proximal aortameasures 2.7 cm, mid aorta measures 2.3 cm, distal aorta measures 2.2 cm.Proximal common iliac arteries are ectatic, measuring 1.6 cm on the rightand 1.5 cm on the left. CONCLUSIONS: Ectatic proximal common iliac arteries as detailed. No focalaneurysm identified on today's study. -------- FINAL REPORT -------- Dictated By: Leslye Loco Dictated Date: 03/18/2024 13:20 ET Assigned Physician: Leslye Loco Reviewed and Electronically Signed By: Leslye Loco Signed Date: 03/18/2024 13:25 ET Workstation ID: [id number] Transcribed By: Self Edit Transcribed Date: 03/18/2024 13:20 ET C Ja Resendez MD [facility] US PROCEDURES * Lipid panel with reflex to direct LDL (01/14/2024 10:43 AM EST) Cholesterol 186 0 - 200 mg/dL LAB CHEMISTRY METHOD 01/14/2024 1:18 PM EST [facility] Triglycerides 68 0 - 150 mg/dL LAB CHEMISTRY METHOD 01/14/2024 1:18 PM [facility] HDL 89 >=40 mg/dL LAB CHEMISTRY METHOD 01/14/2024 1:18 PM EST [facility] LDL Calculated 83 0 - 100 mg/dL LAB CHEMISTRY METHOD 01/14/2024 1:18 PM EST [facility] VLDL Cholesterol Brandan 13.6 mg/dL LAB CHEMISTRY METHOD 01/14/2024 1:18 PM [facility] Non HDL Chol. (LDL+VLDL) 97 <145 mg/dL LAB CHEMISTRY METHOD 01/14/2024 1:18 PM [facility] Chol/HDL Ratio 2.1 0.0 - 4.4 LAB CHEMISTRY METHOD 01/14/2024 1:18 PM [facility] Blood Venous blood specimen / Unknown Venipuncture / Unknown 01/14/2024 10:43 AM EST 01/14/2024 10:44 AM EST C Ja Resendez MD LAB BLOOD ORDERABLES Performing Organization Address [facility]/ZIP Co de Phone Number [facility] [address] [place] [address], * Microalbumin creatinine urine ratio (01/14/2024 10:43 AM EST) Creatinine, Urine 41.0 mg/dL LAB CHEMISTRY METHOD 01/14/2024 1:51 PM EST [facility] Microalb, Ur <5.0 0.0 - 29.0 mg/L LAB CHEMISTRY METHOD 01/14/2024 1:51 PM EST [facility] Microalb/Creat Ratio <12 <30 mg/g creat LAB CHEMISTRY METHOD 01/14/2024 1:51 PM EST [facility] Urine Urine specimen obtained by clean catch procedure / Unknown Non-blood Collection / Unknown 01/14/2024 10:43 AM EST 01/14/2024 10:44 AM EST C Ja Resendez MD LAB URINE ORDERABLES Performing Organization Address [facility] de Phone Number [facility] [address] [place] [address], * Hemoglobin A1c (01/14/2024 10:43 AM EST) Hemoglobin A1C 5.9 <6.5 % LAB CHEMISTRY METHOD 01/15/2024 6:42 PM EST [facility] Mean Bld Glu Estim. 123 mg/dL LAB CHEMISTRY METHOD 01/15/2024 6:42 PM EST [facility] Blood Venous blood specimen / Unknown Venipuncture / Unknown 01/14/2024 10:43 AM EST 01/14/2024 10:44 AM EST C Ja Resendez MD LAB BLOOD ORDERABLES Performing Organization Address City/[facility]/ZIP Co de Phone Number [facility] [address] [place] [address], [place] [phone] * (ABNORMAL) Comprehensive metabolic panel (01/14/2024 10:43 AM EST) Sodium 141 133 - 145 mmol/L LAB CHEMISTRY METHOD 01/14/2024 1:18 PM [facility] Potassium 5.3 3.5 - 5.5 mmol/L LAB CHEMISTRY METHOD 01/14/2024 1:18 PM [facility] Chloride 106 96 - 110 mmol/L LAB CHEMISTRY METHOD 01/14/2024 1:18 PM [facility] CO2 32 21 - 32 mmol/L LAB CHEMISTRY METHOD 01/14/2024 1:18 PM [facility] Anion Gap 3 3 - 11 LAB CHEMISTRY METHOD 01/14/2024 1:18 PM [facility] Glucose 114(H) 70 - 100 mg/dL LAB CHEMISTRY METHOD 01/14/2024 1:18 PM [facility] BUN 20 5 - 25 mg/dL LAB CHEMISTRY METHOD 01/14/2024 1:18 PM [facility] Creatinine 0.85 0.70 - 1.30 mg/dL LAB CHEMISTRY METHOD 01/14/2024 1:18 PM [facility] eGFR 92 >=60 mL/min/1. 73m2 LAB CHEMISTRY METHOD 01/14/2024 1:18 PM [facility] Comment:Calculation based on the??Chronic Kidney Disease Epidemiology Collaboration (CKD-EPI) equation refit??without adjustment for race. BUN/Creatinine Ratio 23.5 LAB CHEMISTRY METHOD 01/14/2024 1:18 PM [facility] Calcium 10.7(H) 8.5 - 10.5 mg/dL LAB CHEMISTRY METHOD 01/14/2024 1:18 PM [facility] AST (SGOT) 17 10 - 42 unit/L LAB CHEMISTRY METHOD 01/14/2024 1:18 PM EST [facility] ALT (SGPT) 23 10 - 60 unit/L LAB CHEMISTRY METHOD 01/14/2024 1:18 PM EST [facility] Alkaline Phosphatase 89 42 - 121 unit/L LAB CHEMISTRY METHOD 01/14/2024 1:18 PM [facility] Total Protein 7.4 6.0 - 8.0 g/dL LAB CHEMISTRY METHOD 01/14/2024 1:18 PM [facility] Albumin 4.0 3.2 - 5.0 g/dL LAB CHEMISTRY METHOD 01/14/2024 1:18 PM [facility] Total Bilirubin 0.8 0.0 - 1.4 mg/dL LAB CHEMISTRY METHOD 01/14/2024 1:18 PM [facility] Blood Venous blood specimen / Unknown Venipuncture / Unknown 01/14/2024 10:43 AM EST 01/14/2024 10:44 AM EST C Ja Resendez MD LAB BLOOD ORDERABLES [facility] [address] [place] [address], * Diabetes Foot Exam (07/14/2023) [facility] Diabetes: Annual Foot Exam abstracted Historical Provider MD ASAF TRIPLETT E * Colonoscopy (08/03/2015) [facility] Colonoscopy no interpretation , abstracted Anatomical Region Laterality Modality Other Historical Provider MD ASAF TRIPLETT E * Hepatitis C Screening (11/19/2011) [facility] Hepatitis C Screening abstracted Historical Provider MD ASAF Lizama from Last 3 Months or Most Recently Relevant to Health Maintenance Care Teams Senior Quality Manager Relationship Specialty Start Date End Date Priya Resendez MD [address] [place] [id number] PCP - General 10/16/01
[2024-04-16] MEDS: Lactated Ringers 1,000 ML 100 ML IVCONT (11:13)
--- NOTE | 2024-04-16 11:17 | P.CONAN_ITS ---
Documented by User: Mahnaz Fu NP 04/01/24 11:59 HPI - Anesthesia Eval Consult details Narrative: 73yo M for Shoulder Arthroscopy,distal clavicle,acromioplasty,with rotator cuff repair, 04/16/24 PMR: prednisone daily, actemra infusion monthly PMFSH Active Problems Active Problems: All Active Problems Cataract (Acute) Right rotator cuff tear (Acute) Osteopenia (Acute) On prednisone therapy (Acute) Type 2 diabetes mellitus (Acute) TMJ arthralgia (Acute) Osteoarthritis of hip (Acute) Polymyalgia rheumatica (Acute) Osteoarthritis of shoulders, bilateral (Acute) Decreased muscle strength (Acute) Past Medical History Medical History Renal cyst Murmur AAA (abdominal aortic aneurysm) Diabetes Osteoarthritis TMJ arthralgia PMR (polymyalgia rheumatica) Osteopenia Decreased muscle strength High cholesterol Family History Family History Father Colon polyps, Onset Age: 70 Prostate cancer, Onset Age: 70 Abdominal aortic aneurysm, Onset Age: 82 Mother Hypertension Thyroid disease Surgical History Surgical History H/O colonoscopy Social History Social History Household Members: Spouse Housing: House Are you a primary post acute care registered nurse to a significant other at home: No Do you presently have visiting nurse or other home services: No Alcohol intake: current Alcohol intake frequency: holidays/special occasions only Alcohol type: beer Patient Tobacco Use Status: Never used Tobacco e-Cigarette/Vaping Use: Never Used Use of substances other than those prescribed or required for medical reasons: No Have you been hit, kicked, punched, or otherwise hurt by someone within the past year? 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 Meds Allergies Allergy/AdvReac Type Severity Reaction Status Date / Time hydrocodone Allergy Severe Vomiting Verified 04/06/24 08:17 oxycodone Allergy Severe Dizziness Verified 04/06/24 08:17 Home Medications ?Medication ?Instructions ?Recorded ?Confirmed ?Last Taken ?Type pravastatin 40 mg tablet 40 mg PO BEDTIME 05/06/22 04/06/24 Unknown History cholecalciferol (vitamin D3) 25 50 mcg PO DAILY 11/27/22 04/06/24 Unknown History mcg (1,000 unit) capsule Actemra [id number] 03/31/24 04/06/24 Unknown History metformin 500 mg tablet,extended 500 mg PO QAM 03/31/24 04/06/24 Unknown History release 24 hr prednisone 1 mg tablet 3 mg PO QAM 03/31/24 04/06/24 Unknown History Exam Height,Weight and Vital Signs: Height 5 ft 11 in Weight 74.843 kg Pertinent Lab Results Pertinent Lab Results: Laboratory Tests 03/09/24 13:11 WBC 5.9 Hgb 15.5 Hct 43.8 Plt Count 231 Sodium 142 Potassium 5.2 H Chloride 107 Carbon Dioxide 30 H BUN 22 H Creatinine 0.81 Assessment and Plan Assessment Anesthesia Assessment: Chart Reviewed Documented by User: Brissa Comer DO 04/16/24 11:18 [facility] Past Medical History Medical History Renal cyst Murmur AAA (abdominal aortic aneurysm) Diabetes Osteoarthritis TMJ arthralgia PMR (polymyalgia rheumatica) Osteopenia Decreased muscle strength High cholesterol Family History Family History Father Colon polyps, Onset Age: 70 Prostate cancer, Onset Age: 70 Abdominal aortic aneurysm, Onset Age: 82 Mother Hypertension Thyroid disease Family history of problems with anesthesia: No Surgical History Surgical History H/O colonoscopy History of Problems with Anesthesia: No Social History Social History Household Members: Spouse Housing: House Are you a primary post acute care registered nurse to a significant other at home: No Do you presently have visiting nurse or other home services: No Alcohol intake: current Alcohol intake frequency: holidays/special occasions only Alcohol type: beer Patient Tobacco Use Status: Never used Tobacco e-Cigarette/Vaping Use: Never Used Use of substances other than those prescribed or required for medical reasons: No Have you been hit, kicked, punched, or otherwise hurt by someone within the past year? 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 Meds Allergies Allergy/AdvReac Type Severity Reaction Status Date / Time hydrocodone Allergy Severe Vomiting Verified 04/06/24 08:17 oxycodone Allergy Severe Dizziness Verified 04/06/24 08:17 Home Medications ?Medication ?Instructions ?Recorded ?Confirmed ?Last Taken ?Type pravastatin 40 mg tablet 40 mg PO BEDTIME 05/06/22 04/06/24 Unknown History cholecalciferol (vitamin D3) 25 50 mcg PO DAILY 11/27/22 04/06/24 Unknown History mcg (1,000 unit) capsule Actemra [id number] 03/31/24 04/06/24 Unknown History metformin 500 mg tablet,extended 500 mg PO QAM 03/31/24 04/06/24 Unknown History release 24 hr prednisone 1 mg tablet 3 mg PO QAM 03/31/24 04/06/24 Unknown History Exam Exam Date and Time: 04/16/24 1117 Height,Weight and Vital Signs: Height 5 ft 11 in Weight 74.843 kg Vital Signs Temperature 98.3 F 04/16/24 10:48 Pulse Rate 84 04/16/24 10:48 Respiratory Rate 16 04/16/24 10:48 Blood Pressure 140/46 H 04/16/24 10:48 Pulse Oximetry 99 04/16/24 10:48 Oxygen Delivery Method Room Air 04/16/24 10:48 Temperature 98.3 F 04/16/24 10:48 Pulse Rate 84 04/16/24 10:48 Respiratory Rate 16 04/16/24 10:48 Blood Pressure 140/46 H 04/16/24 10:48 Pulse Oximetry 99 04/16/24 10:48 Oxygen Delivery Method Room Air 04/16/24 10:48 Airway Mallampati Class: II TM Dist: >3cm Neck ROM: Full Loose/Missing/Broken Teeth: No (patient denies any loose or broken teeth) Heart: S1S2 Lungs: CTAB Assessment and Plan Assessment Anesthesia Assessment: Anesthesia Plan Discussed and Chart Reviewed Final Anesthetic Review Family History of Problems with Anesthesia: No History of Problems with Anesthesia: No NPO: Yes ASA Class: II Final Preanesthetic Review: No Changes in Pt Med Stat, Meds/Allgs Chart Reviewed, Consent Obtained/Reviewed and Anes Risks/Benef Reviewed Patient Risk: Low Procedure Risk: Intermediate Anesthetic Plan Anesthetic Plan: GA, Regional Block (right brachial plexus block) and Agree w/ Assess. and Plan Disposition: Standard PACU
[2024-04-16 11:32] LABS: Glucose, Whole Blood 126 mg/dL (60-115)
--- NOTE | 2024-04-16 13:22 | P.BOP_ITS ---
Brief Operative Note Date of Service: 04/16/24 Pre-op diagnosis: Right shoulder impingement syndrome, right shoulder acromioclavicular joint arthritis Post-op diagnosis: same Procedure: Right shoulder arthroscopic distal clavicle excision, right shoulder arthroscopic acromioplasty Implants: none Surgeon: Dg Barnett MD Anesthesia: GETA and regional Was an Floorleader used for this Procedure?: No Estimated blood loss (mL): 15 Pathology: none sent Condition: stable Disposition: PACU
--- NOTE | 2024-04-16 13:23 | P.OP_ITS ---
Operative Note Operative Note Date of Service: 04/16/24 Narrative: After the patient was identified as Arias Mares and his right shoulder was initialed by myself the patient was brought to the holding area where a right shoulder interscalene regional block was performed by the anesthesiologist in routine fashion. The patient was then brought to the operating room where general anesthesia was induced by the anesthesiologist in routine fashion. The patient was given 2 g of IV Ancef preoperatively for infection prophylaxis. Examination under anesthesia of the patient's right shoulder showed full passive range of motion of the patient's left shoulder when compared to the left. The patient was gently positioned in the beach chair position with all bony prominences well padded. The patient's right shoulder region and upper extremity were prepped and draped in sterile fashion. A formal time-out was completed. A #11 scalpel blade was used to make a posterior portal 2 cm inferior and 1 cm medial to the posterolateral corner of the acromion. Blunt trocar technique was used to enter the glenohumeral joint in routine fashion. An anterior portal was made just lateral to the coracoid process after proper positioning was confirmed using a spinal needle. Diagnostic arthroscopy showed minimal minimal degenerative changes of the glenoid articular surface as well as diffuse grade 1 and 2 degenerative changes of the humeral head. The articular surface of the humeral head was made smooth using the arthroscopic shaver. There was degenerative fraying of the undersurface of the supraspinatus tendon measuring approximately 25% of the tendon width. The frayed fibers were de brided using the arthroscopic shaver. Following the debridement the remainder of the fibers were intact. There was no evidence of injury to the biceps tendon or its insertion onto the glenoid. There was no inflammation of the anterior joint capsule. The arthroscope was then placed from the posterior portal into the subacromial space. A lateral portal was made 2 fingerbreadths lateral to the anterior lateral corner of the acromion. The ArthroCare Wand was used to ablate soft tissues along the undersurface of the acromion as well as to excise the coracoacromial ligament. There was a sharp spur along the undersurface of the acromion which was removed using the hooded bur. The arthroscope was then placed into the lateral portal and the acromioplasty was completed with the bur in the posterior portal using the posterior aspect of the acromion as a cutting block. The ArthroCare Wand was then brought in through the anterior portal and was used to ablate soft tissues along the acromioclavicular joint and distal clavicle. The posterior and superior ligamentous structures were left intact. A distal clavicle excision of 8 mm was performed using the hooded bur. Any remaining bursal tissue was removed using the arthroscopic shaver. The subacromial space was irrigated and then drained. All arthroscopic instruments were removed. The 3 portals were closed with 3-0 nylon interrupted suture. The subacromial space was injected with Marcaine. Dry sterile dressing was placed over all incisions. The patient's right upper extremity was placed into a sling. The patient was awoken and extubated in the operating room. The patient was transferred to the recovery room in stable condition.
[2024-04-16] MEDS: cefTRIAXone sodium 1 GM VIAL IVPUSH (13:34)
== END 2024-04-16 15:01 | disposition home or self-care (01) ==
PROVIDERS: PCP Pediatrics; Visit Provider Orthopaedic Surgery
PROC: (CPT 29805; principal; 2024-04-16 12:00)
DX: M75.41 Impingement syndrome of right shoulder (principal); M19.011 Primary osteoarthritis, right shoulder; M25.511 Pain in right shoulder; M62.81 Muscle weakness (generalized); M35.3 Polymyalgia rheumatica; E11.9 Type 2 diabetes mellitus without complications; E78.00 Pure hypercholesterolemia, unspecified; Z79.82 Long term (current) use of aspirin; Z79.52 Long term (current) use of systemic steroids; Z79.84 Long term (current) use of oral hypoglycemic drugs; Z79.899 Other long term (current) drug therapy; Z88.5 Allergy status to narcotic agent
CPT/HCPCS: 29824; 29826; 82947; 93005; J0131; J0171; J0665; J0690; J0696; J1100; J1885; J2003; J2250; J2405; J2704; J2795; J3010

== ENCOUNTER → 2024-04-16 10:13 | Outpatient (BNV) | payer MEDICARE, SELFPAY | PROVIDERS: PCP Pediatrics; Visit Provider Orthopaedic Surgery | DX: M19.011 Primary osteoarthritis, right shoulder (principal); M75.41 Impingement syndrome of right shoulder | CPT/HCPCS: 29824; 29826 ==

== ENCOUNTER 2024-04-29 09:36 | Outpatient (AMB) | payer MEDICARE, SELFPAY ==
--- NOTE | 2024-04-29 09:39 | MHC.OFFVIS ---
Intake Visit Reasons: PO - right RTC Repair 04/16/24 Intake Note: Arias is a 73 year old left hand dominant male who presents today for a post op appointment s/p right rotator cuff repair/right shoulder arthroscopic distal clavicle excision 04/16/24 Patient reports he is doing well, states his pain has been very minimal. He has soreness with home exercises. Allergies hydrocodone Allergy (Severe, Verified 04/29/24 09:53) Vomiting oxycodone Allergy (Severe, Verified 04/29/24 09:53) Dizziness HPI HPI PO - right RTC Repair 04/16/24 DR: Details: Mr. Mares is a 73-year-old left-hand dominant male who presents to the office today status post right shoulder rotator cuff repair performed on 04/16/[address] Barnett. Patient is overall doing very well. He has no complaints at this time [facility] Medical History Renal cyst Murmur AAA (abdominal aortic aneurysm) Diabetes Osteoarthritis TMJ arthralgia PMR (polymyalgia rheumatica) Osteopenia Decreased muscle strength High cholesterol Surgical History H/O colonoscopy Family History Father Colon polyps, Onset Age: 70 Prostate cancer, Onset Age: 70 Abdominal aortic aneurysm, Onset Age: 82 Mother Hypertension Thyroid disease Social History Household Members: Spouse Housing: House Are you a primary child care associate to a significant other at home: No Do you presently have visiting nurse or other home services: No Alcohol intake: current Alcohol intake frequency: a few times a month Alcohol type: beer Patient Tobacco Use Status: Never used Tobacco e-Cigarette/Vaping Use: Never Used service: No Current occupational status: retired 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 Sutures intact. No surrounding erythema or drainage. No signs of infection. Locking about 45 degree forward flexion and 60 degrees of abduction. NVI. Assessment & Plan Assessment & Plan (1) Status post right rotator cuff repair: Code(s): Z98.890 - Other specified postprocedural states Category: Surgical Plan Mr. Mares is a 73-year-old left-hand dominant male who presents to the office today status post right shoulder rotator cuff repair performed on 04/16/[address] Barnett. Patient is overall doing very well. He has no complaints at this time. While in the office today, sutures were removed. Steri-Strips were applied. I have recommended physical therapy. An order has been placed and will reach out to the patient to discuss appointments. He will follow up in [address] Barnett, sooner if needed. Orders: Orders PT Evaluation and Treatment Today M25.811 - Other specified joint disorders, right shoulder, M75.121 - Complete rotator cuff tear or rupture of right shoulder, not specified as traumatic Coding Level of Care Code Global (70996) Diagnoses Status post right rotator cuff repair Z98.890
--- OUTSIDE RECORDS SUMMARY | 2024-04-29 10:25 | XMS_ITS | Clinical Summary ---
Author Organization [facility] [address] [address] Address [address] [place] [address] Phone Care Team Providers Care Shot Hole Driller Name Role Phone Priya Resendez MD Primary Care Provider [phone] Allergies Active Allergy Reactions Criticality Noted Date Comments Hydrocodone-Acetaminophen 04/20/2016 Medications blood glucose control high,low (FreeStyle Control) solution [...] Team Description 02/26/2024 Telephone Adult Medicine - [address] [id number] Priya Resendez MD Results 01/28/2024 7:56 AM EST - 01/28/2024 11:59 PM EST Hospital Encounter Radiology Department - [address] [address] 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 For example, child attendant or elderly care for an older adult? [...] Recorded Sex Assigned at Not on file Legal Sex Male 2:07 AM EST Gender Identity Not on file Sexual Orientation Not on file Obstetrics History Last Filed [...] Care Team (Late st Contact Info) Description 04/30/2024 9:00 AM EST Office Visit Adult Medicine [facility] [address] [place] [id number] Corby Martinez PA [address] [place] [address] 07/14/2024 8:45 AM EDT Office Visit [facility] [address] [place] [address] Priya Resendez MD [address] [place], [place] [id number] Health Maintenance Due Date Last Done Comments Diabetes: Annual Retina Eye Exam 11/01/1960 Falls Risk Assessment 02/16/2022 Medicare Annual Wellness Visit 02/16/2022 COVID-19 Vaccine ( season) 2023 07/25/2021, 01/22/2021, 07/22/2020, Additional history exists Diabetes: Blood Sugar Control Test (HGBA1C) 07/13/2024 01/14/2024, 07/14/2023, 07/14/2023 Social Influencers of Health Screening 01/07/2025 01/08/2024 Diabetes: Annual Urine Albumin-Creatinine Ratio (uACR) 01/13/2025 01/14/2024, 07/14/2023 Diabetes: Annual Foot Exam 01/13/2025 01/14/2024, Diabetes: Annual GFR (Glomerular Filtration Rate) 01/13/2025 01/14/2024, 07/14/2023, 07/14/2023 Depression Screening 04/23/2025 04/23/2024 Colorectal Cancer Screening: Colonoscopy 08/02/2025 08/03/2015 RSV Immunization Patients 60+ Years Old (1 - 1-dose 75+ series) 11/01/2026 DTaP,Tdap,and Td Vaccines (6 - Td or Tdap) 03/26/2027 03/26/2017, 06/09/2006, 07/19/2004, Additional history exists Cholesterol Screening (Lipid Panel) 01/13/2029 01/14/2024, 07/14/2023, 07/14/2023 Hepatitis C Screening Completed 11/19/2011 Pneumococcal Vaccine: 50+ Years Completed 04/17/2018, 03/26/2017 Zoster Vaccines Completed [...] patient's age to complete this topic Meningococcal B Vacine Aged Out No lo nger eligible based on patient's age to complete [...] type 2 with peripheral vascular complications (CMS/HCC) DIABETES FOOT EXAM Routine 07/14/2023 COLONOSCOPY Routine [...] Signed Date: 03/18/2024 13:25 ET Workstation ID: [id number] Transcribed By: Self Edit Transcribed Date: 03/18/2024 [...] Signed Date: 03/18/2024 13:25 ET Workstation ID: [id number] Transcribed By: Self Edit Transcribed Date: 03/18/2024 13:20 ET us C Ja Resendez MD [facility] US PROCEDURES Final Result * Lipid panel with reflex to direct LDL (01/14/2024 10:43 AM EST) Cholesterol 186 0 - 200 mg/dL LAB CHEMISTRY METHOD 01/14/2024 1:18 PM [facility] Triglycerides 68 0 - 150 mg/dL LAB CHEMISTRY METHOD 01/14/2024 1:18 PM [facility] HDL 89 >=40 mg/dL LAB CHEMISTRY METHOD 01/14/2024 1:18 PM [facility] LDL Calculated 83 0 - 100 mg/dL LAB CHEMISTRY METHOD 01/14/2024 1:18 PM [facility] VLDL Cholesterol Brandan 13.6 mg/dL LAB CHEMISTRY METHOD 01/14/2024 1:18 PM [facility] Non HDL Chol. (LDL+VLDL) 97 <145 mg/dL LAB CHEMISTRY METHOD 01/14/2024 1:18 PM EST [facility] Chol/HDL Ratio 2.1 0.0 - 4.4 LAB CHEMISTRY METHOD 01/14/2024 1:18 PM EST [facility] Blood Venous blood specimen / Unknown Venipuncture / Unknown 01/14/2024 10:43 AM EST 01/14/2024 10:44 AM EST C Ja Resendez MD LAB BLOOD ORDERABLES Final Res ult [facility] [address] [place] [address], [place] [phone] * Microalbumin creatinine urine ratio (01/14/2024 10:43 AM EST) Creatinine, Urine 41.0 mg/dL LAB CHEMISTRY METHOD 01/14/2024 1:51 PM [facility] Microalb, Ur <5.0 0.0 - 29.0 mg/L LAB CHEMISTRY METHOD 01/14/2024 1:51 PM EST [facility] Microalb/Creat Ratio <12 <30 mg/g creat LAB CHEMISTRY METHOD 01/14/2024 1:51 PM EST [facility] Urine Urine specimen obtained by clean catch procedure / Unknown Non-blood Collection / Unknown 01/14/2024 10:43 AM EST 01/14/2024 10:44 AM EST us C Ja Resendez MD LAB URINE ORDERABLES Final Res ult [facility] [address] [place] [address], [place] [phone] * Hemoglobin A1c (01/14/2024 10:43 AM EST) Hemoglobin A1C 5.9 <6.5 % LAB CHEMISTRY METHOD 01/15/2024 6:42 PM EST [facility] Mean Bld Glu Estim. 123 mg/dL LAB CHEMISTRY METHOD 01/15/2024 6:42 PM [facility] Blood Venous blood specimen / Unknown Venipuncture / Unknown 01/14/2024 10:43 AM EST 01/14/2024 10:44 AM EST us C Ja Resendez MD LAB BLOOD ORDERABLES Final Res ult [facility] [address] [place] [address], [place] [phone] * (ABNORMAL) Comprehensive metabolic panel (01/14/2024 10:43 AM EST) Sodium 141 133 - 145 mmol/L LAB CHEMISTRY METHOD 01/14/2024 1:18 PM [facility] Potassium 5.3 3.5 - 5.5 mmol/L LAB CHEMISTRY METHOD 01/14/2024 1:18 PM [facility] Chloride 106 96 - 110 mmol/L LAB CHEMISTRY METHOD 01/14/2024 1:18 PM [facility] CO2 32 21 - 32 mmol/L LAB CHEMISTRY METHOD 01/14/2024 1:18 PM [facility] Anion Gap 3 3 - 11 LAB CHEMISTRY METHOD 01/14/2024 1:18 PM [facility] Glucose 114(H) 70 - 100 mg/dL LAB CHEMISTRY METHOD 01/14/2024 1:18 PM [facility] BUN 20 5 - 25 mg/dL LAB CHEMISTRY METHOD 01/14/2024 1:18 PM [facility] Creatinine 0.85 0.70 - 1.30 mg/dL LAB CHEMISTRY METHOD 01/14/2024 1:18 PM [facility] eGFR 92 >=60 mL/min/1. 73m2 LAB CHEMISTRY METHOD 01/14/2024 1:18 PM [facility] Comment:Calculation based on the??Chronic Kidney Disease Epidemiology Collaboration (CKD-EPI) equation refit??without adjustment for race. BUN/Creatinine Ratio 23.5 LAB CHEMISTRY METHOD 01/14/2024 1:18 PM [facility] Calcium 10.7(H) 8.5 - 10.5 mg/dL LAB CHEMISTRY METHOD 01/14/2024 1:18 PM [facility] AST (SGOT) 17 10 - 42 unit/L LAB CHEMISTRY METHOD 01/14/2024 1:18 PM [facility] ALT (SGPT) 23 10 - 60 unit/L LAB CHEMISTRY METHOD 01/14/2024 1:18 PM [facility] Alkaline Phosphatase 89 42 - 121 unit/L LAB CHEMISTRY METHOD 01/14/2024 1:18 PM [facility] Total Protein 7.4 6.0 - 8.0 g/dL LAB CHEMISTRY METHOD 01/14/2024 1:18 PM [facility] Albumin 4.0 3.2 - 5.0 g/dL LAB CHEMISTRY METHOD 01/14/2024 1:18 PM [facility] Total Bilirubin 0.8 0.0 - 1.4 mg/dL LAB CHEMISTRY METHOD 01/14/2024 1:18 PM [facility] Blood Venous blood specimen / Unknown Venipuncture / Unknown 01/14/2024 10:43 AM EST 01/14/2024 10:44 AM EST us Priya Resendez MD LAB BLOOD ORDERABLES Final Res ult [facility] [address] [place] [address], [place] [phone] * Diabetes Foot Exam (07/14/2023) Diabetes: Annual Foot Exam abstracted [facility] Provider HEALTH MAINTENANCE Final Result * Colonoscopy (08/03/2015) Pathologist [facility] Colonoscopy no interpretation , abstracted Anatomical Region Laterality Modality Other us Historical Provider HEALTH MAINTENANCE Final Result * Hepatitis C Screening (11/19/2011) Pathologist [facility] Hepatitis C Screening abstracted us Historical Provider HEALTH MAINTENANCE Final Result from Last 3 Months or Most Recently Relevant to Health Maintenance Insurance MEDICARE [facility] Care Teams Shot Hole Driller Relationship Specialty Start Date End Date Priya Resendez MD [address] [place] [id number] PCP - General 10/16/01
== END 2024-04-29 10:29 | disposition home or self-care (01) ==
PROVIDERS: PCP Pediatrics; Visit Provider Physician Assistant
DX: Z98.890 Other specified postprocedural states (principal)
CPT/HCPCS: 99024

== ENCOUNTER → 2024-04-29 09:36 | Outpatient (BNVA) | payer MEDICARE, SELFPAY | PROVIDERS: PCP Pediatrics; Visit Provider Physician Assistant | DX: Z47.89 Encounter for other orthopedic aftercare (principal); Z98.890 Other specified postprocedural states | CPT/HCPCS: 99212 ==

== ENCOUNTER 2024-05-25 11:06 | Outpatient (AMB) | payer MEDICARE, SELFPAY ==
--- NOTE | 2024-05-25 11:15 | A.OFFVIS_ITS ---
Vital Signs 05/25/24 11:18 Height 5 ft 11 in Weight 173 lb 8.061 oz BMI 24.2 BP 130/80 Blood Pressure Location Lt brachial Position Sitting Pulse 43 L Pulse Source Pulse Oximeter Pulse Oximetry (%) 97 Oxygen Delivery Method Room Air Intake Visit Reasons: PMR Intake Note: Patient presents for PMR. Allergies hydrocodone Allergy (Severe, Verified 05/25/24 11:19) Vomiting oxycodone Allergy (Severe, Verified 05/25/24 11:19) Dizziness Medication List - Last Reconciled 05/25/24 by Darling Nicholson MD [Actemra [id number]] cholecalciferol (vitamin D3) 50 mcg PO DAILY metformin ER 500 mg PO QAM pravastatin 40 mg PO BEDTIME prednisone 1 mg PO QAM tocilizumab (Actemra) 8mg/kg intravenously every 4 weeks; HPI Comments Details: Patient is a 73-year-old male with diabetes, hyperlipidemia, polyarticular osteo arthritis, osteopenia and polymyalgia rheumatica here today for follow up Interval History: Patient last seen 02/16/[address] Irizarry. He was recently started on Actemra infusions with improvement in his shoulder pain and stiffness as well as hip/groin pain and stiffness. Patient was placed on a taper of his prednisone. Since that visit patient has been able to taper his prednisone to 1mg daily without return of symptoms Rheumatologic History: Onset? fall 2020; prednisone since 11/2021 Actemra infusion added 01/2024 effective Current Rheumatology Medication(s): Actemra IV 8mg/kg every 4 weeks Prednisone 1 mg REPLACED BY [facility] Medical History (Updated 05/25/24 @ 11:33 by Darling Nicholson MD) Renal cyst Murmur AAA (abdominal aortic aneurysm) Diabetes Osteoarthritis TMJ arthralgia PMR (polymyalgia rheumatica) Osteopenia Decreased muscle strength High cholesterol Surgical History (Updated 05/25/24 @ 11:21 by NILA Barclay) History of shoulder surgery H/O colonoscopy Family History Father Colon polyps, Onset Age: 70 Prostate cancer, Onset Age: 70 Abdominal aortic aneurysm, Onset Age: 82 Mother Hypertension Thyroid disease Social History Household Members: Spouse Housing: House Are you a primary healthcare associate to a significant other at home: No Do you presently have visiting nurse or other home services: No Alcohol intake: current Alcohol intake frequency: a few times a month Alcohol t ype: beer Patient Tobacco Use Status: Never used Tobacco e-Cigarette/Vaping Use: Never Used service: No Current occupational status: retired 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 Review of Systems Const Details: Review of Systems Constitutional: Denies fever, chills, weight loss ENT: Denies vision changes, eye pain or eye redness, dental caries, dry mouth GI: Denies nausea, vomiting, diarrhea, abdominal pain, change in BM Pulm: Denies SOB, VALERIO, hemoptysis, wheezing Cards: Denies chest pain, palpitations Skin: Denies Raynaud's, rash, nail changes, photosensitivity, DESIGN ASSISTANT: Denies headaches, weakness, paresthesias, recurrent falls MSK: as per HPI All other systems reviewed and are unremarkable except noted above Physical Exam Vital Signs: Last Vital Signs Pulse 43 L 05/25/24 11:18 BP 130/80 05/25/24 11:18 Pulse Ox 97 05/25/24 11:18 Oxygen Delivery Method Room Air 05/25/24 11:18 BMI result Body Mass Index 24.2 Vital signs reviewed Physical Examination CONSTITUITIONAL Patient alert and cooperative. Well appearing and in no apparent painful distress HEENT Conjunctiva and sclera clear. ?Pupils equal round and reactive to light. ?No lymphadenopathy. ? CHEST/RESPIRATORY SYSTEM Normal respiratory effort and able to speak in complete sentences. ?Clear to auscultation bilaterally. ?No crackles, rales, rhonchi, wheezes heard. CARDIAC SYSTEM Regular rate and rhythm. ?S1 and S2 heard no murmurs. ?Radial pulses intact bilaterally MSK Hands: ?Good production technician strength bilaterally. No deformities noted. ?No synovitis noted to the MCPs, PIPs or DIPs. ?No tenderness to palpation of these joints. Wrists: ?Full range of motion at the wrists without pain. ?No tenderness to palpation or synovitis noted to the wrists. Elbows: Full range of motion without pain. No tenderness, weakness, swelling, increased warmth or erythema. Shoulders: Full range of motion without pain. No tenderness, weakness, swelling, increased warmth or erythema. Hips: Full range of motion without pain. Hip bursa: No tenderness to palpation Knees: ?Full range of motion. ?No tenderness, swelling, increased warmth or erythema.?No effusion or crepitations Ankles: Full range of motion. ?No tenderness, swelling, increased warmth or erythema.? Feet: ?Negative squeeze test. ?No tenderness to palpation or swelling of the MTPs. Tender points:?No tenderness to palpation of the bilateral trapezius, supraspinatus, greater trochanters, anterior costochondral junctions, bilateral gluteal areas, bilateral suboccipital muscle insertions SKIN Skin intact without rashes. Results Reviewed Results Reviewed: Laboratory Tests 05/04/24 13:34 WBC 5.0 RBC 4.42 L Hgb 14.4 Hct 40.9 L Plt Count 210 ESR 2 Sodium 143 Potassium 4.7 Chloride 107 Carbon Dioxide 30 H BUN 25 H Creatinine 0.78 Calcium 10.0 Total Bilirubin 0.8 AST 27 ALT 27 Alkaline Phosphatase 73 C-Reactive Protein < 0.10 Immunology labs 06/04/21 12/03/23 11:27 10:54 Rheumatoid Factor < 15.0 Cycl Citrul Peptide IgG <16 MAGGI Screen NEGATIVE Infectious serologies 12/10/23 12:31 Hepatitis A IgM Ab Nonreactive Hep Bs Antigen Negative Hep Bs Antibody NONREACTIVE Hep B Core Total Ab Nonreactive Hepatitis C Ab (EIA) Nonreactive TB Test (T-Spot) Com Negative DEXA 08/2022 FINDINGS: AP SPINE L1-L4: BMD 1.272 g/cm2, Z-score 1.1, T-score 0.4, normal. LEFT FEMUR, NECK: BMD 0.838 g/cm2, Z-score -0.4, T-score -1.8, osteopenia. LEFT FEMUR, TOTAL: BMD 0.934 g/cm2, Z-score -0.3, T-score -1.2, osteopenia. 10-YEAR FRACTURE RISK PREDICTION, FRAX: Major osteoporotic fracture (clinical spine, forearm, hip or shoulder) 10.0%. Hip fracture 2.9%. Assessment & Plan Assessment & Plan (1) Polymyalgia rheumatica: Comment: Onset? fall 2020; prednisone since 11/2021 Actemra infusion added 01/2024 effective Code(s): M35.3 - Polymyalgia rheumatica Category: Medical Plan: #PMR Patient is a 73-year-old gentleman with PMR currently in remission. Has been having success with tapering his prednisone while on Actemra. Discussed with patient that he would need to be on Actemra for at least 1 year prior to considering tapering the medication. Plan - Continue prednisone 1mg for 1 more month then stop - Continue actemra infusions 8mg/kg every 4 weeks - RTC 3 months - Labs before visit: CBC, CMP, ESR, CRP, hepatitis panel, T spot, lipid panel (2) Osteopenia: Comment: DEXA 08/2022: AP spine 0.4, Left femur neck -1.8, Left femur total -1.2. FRAX 12/09.9 Code(s): M85.80 - Other specified disorders of bone density and structure, unspecified site Category: Medical Qualifiers: Osteopenia location: multiple sites Qualified Code(s): M85.89 - Other specified disorders of bone density and structure, multiple sites Plan: #Osteopenia Patient with osteopenia currently on vitamin-D supplementation. Patient states that he rides a stationary bike for 3 miles a day with high resistance Plan - Repeat DEXA 08/2024 - Continue Vit D - At next lab draw check Vit D (3) Bradycardia: Code(s): R00.1 - Bradycardia, unspecified Plan: #Bradycardia Patient today with bradycardia, heart rate in the 40s. Current asymptomatic. This may be just a resting heart rate for this patient given that he is extremely active cycling 3 miles a day. He does have a follow up appointment with a [employer] and I recommend he bring that to their attention but at this time I do not think this is something to be concerned about. (4) On prednisone therapy: Code(s): Z79.52 - nursing home (current) use of systemic steroids Category: Medical Plan: #Long-term Use of Steroids Discussed with patient the risks and benefits of steroid for managing the rheumatic condition Benefits include: - Reduced pain, improved mobility, increased participation in activities, and decreased progression of disease Risks include: - GI upset, potential ultrasound worsening or formation (especially in patients > 65 years old), elevated blood pressure/worsening hypertension, elevated blood sugar/worsening diabetes control, worsening of bone density, elevated lipids/worsening triglycerides, cataract formation, weight gain Recommended using proton pump inhibitors (PPIs) for the duration of steroid use to reduce the risk of gastric ulcers and vitamin-D daily to reduce the risk of osteoporosis Labs checked: ?A1c, T spot, hepatitis-B and C serologies Pneumocystis jiroveci prophylaxis: ?Patient with risk factors including steroids greater than 50 mg for more than 30 days, age greater than 60 years, and lung involvement from underlying rheumatic disease requires prophylaxis and will be given so (5) Encounter for monitoring tocilizumab therapy: Code(s): Z51.81 - Encounter for therapeutic drug level monitoring; Z79.620 - nursing home (current) use of immunosuppressive biologic Plan: #Long-term Use of Tocilizumab Discussed the risks and benefits of tocilizumab with the management of this patient's rheumatic condition. ? Benefits include decreased pain, improved mortality, improved quality of life Risks include LFT abnormalities, elevated triglycerides, GI perforations Contraindicated in a patient with history of diverticulitis Monitoring: ?CBC, CMP, triglycerides Plan I spent 32 minutes reviewing the record and labs, taking a history, examining the patient, discussing the treatment plan, ordering diagnostic work up and documenting in the medical record Orders: Orders Comprehensive Met. Panel 3 Months M35.3 - Polymyalgia rheumatica, Z51.81 - Encounter for therapeutic drug level monitoring, Z79.620 - nursing home (current) use of immunosuppressive biologic T Spot TB 3 Months M35.3 - Polymyalgia rheumatica, Z51.81 - Encounter for therapeutic drug level monitoring, Z79.620 - supervisor intermediates (current) use of immunosuppressive biologic Vitamin D 25-OH Total 3 Months M35.3 - Polymyalgia rheumatica, Z51.81 - En counter for therapeutic drug level monitoring, Z79.620 - supervisor intermediates (current) use of immunosuppressive biologic Complete Blood Count Auto Diff 3 Months M35.3 - Polymyalgia rheumatica, Z51.81 - Encounter for therapeutic drug level monitoring, Z79.620 - nursing home (current) use of immunosuppressive biologic C Reactive Protein 3 Months M35.3 - Polymyalgia rheumatica, Z51.81 - Encounter for therapeutic drug level monitoring, Z79.620 - supervisor intermediates (current) use of immunosuppressive biologic Erythrocyte Sedimentation Rate 3 Months M35.3 - Polymyalgia rheumatica, Z51.81 - Encounter for therapeutic drug level monitoring, Z79.620 - nursing home (current) use of immunosuppressive biologic Hepatitis A,B,C Profile 3 Months M35.3 - Polymyalgia rheumatica, Z51.81 - Encounter for therapeutic drug level monitoring, Z79.620 - nursing home (current) use of immunosuppressive biologic Lipid Panel 3 Months M35.3 - Polymyalgia rheumatica, Z51.81 - Encounter for therapeutic drug level monitoring, Z79.620 - nursing home (current) use of immunosuppressive biologic Coding Level of Care Code Est Pt Level 4 (26317) Complex EM visit Add On G2211 Diagnoses Polymyalgia rheumatica M35.3 Osteopenia of multiple sites M85.89 Osteopenia location: multiple sites Bradycardia R00.1 On prednisone therapy Z79.52 Encounter for monitoring tocilizumab therapy Z51.81; Z79.620
[2024-05-25 11:18] VITALS: BP 130/80; PULSE 43; O2SAT 97; BMI 24.2
--- OUTSIDE RECORDS SUMMARY | 2024-05-25 13:24 | XMS_ITS | Clinical Summary ---
Author Organization [facility] [address] [facility] lding Address [address] [place] [address] Phone Care Team Providers Care Air Conditioning Unit Assembler Name Role Phone Priya Resendez MD Primary Care Provider [phone] Allergies Active Allergy Reactions Criticality Noted Date Comments Hydrocodone-Acetaminophen 04/20/2016 Medications blood glucose control high,low (FreeStyle Control) solution USE DIRECTED 1 Active blood sugar diagnostic (FreeStyle Lite Strips) test strip USE TO CHECK BLOOD SUGAR ONCE DAILY 4 Active FREESTYLE LANCETS MISC CHECK BLOOD SUGAR DAILY 4 Active predniSONE (DELTASONE) 5 mg tablet Take 2 mg by mouth 1 (one) time each day. 3 Active blood-glucose meter kit Check blood sugar bid 1 Active pravastatin (PRAVACHOL) 40 mg tablet TAKE 1 TABLET BY MOUTH EVERY DAY 90 tablet 1 4 Active metFORMIN XR (GLUCOPHAGE-XR) 500 mg 24 hr tablet Take 1 tablet (500 mg total) by mouth 1 (one) time each day. Do not crush, chew, or split. 90 tablet 5 Active metFORMIN XR (GLUCOPHAGE-XR) 500 mg 24 hr tablet 1 (one) time. 3 05/12/19 25 Discontinu ed(Reorder ) Active Problems Problem Noted Date Diagnosed Date [...] Encounters Date Type Department Care Team Description 04/30/2024 9:00 AM EST Office Visit Adult Medicine [facility] [address] [place] [address] Corby Martinez PA Abnormal EKG (Primary Dx); DM (diabetes mellitus), type 2 with peripheral vascular complications (CMS/HCC); Polymyalgia rheumatica (CMS/HCC); Other [facility] (current) drug therapy 02/26/2024 Telephone Adult Medicine [facility] [address] [place] [phone] Priya Resendez MD Results from Last 3 Months Immunizations Name Administration Dates Next Due H1N1 Inj Preservative Free 03/01/2009 Influenza trivalent, 0.5mL ( Fluzone High-dose) 65yo and older 01/27/2024,01/09/2023,01/09/2022,12/27,12/23/2019,01/07/2019,12/25/2017 ,12/25/2016 Influenza trivalent, with pr eservative (Fluzone; Afluria) [...] for your loved ones. For example, child development associate teacher or elderly care for an older adult? [...] Sign Reading Time Taken Comments Blood Pressure 120/62 04/30/2024 8:54 AM EST Pulse 94 04/30/2024 8:54 AM EST Temperature 36.7 ??C (98.1 ??F) 04/30/2024 8:54 AM ES T Respiratory Rate 16 01/14/2024 9:54 AM EST Oxygen Saturation - - Inhaled Oxygen Concentration - - Weight 78.5 kg (173 lb) 04/30/2024 8:54 AM EST Height 180.3 cm (5' 11 ) 04/30/2024 8:54 AM EST Body Mass Index 24.13 04/30/2024 8:54 AM EST Plan of Treatment Upcoming Encounters Date Type Department Care Team (Late st Contact Info) Description 07/14/2024 8:45 AM EDT Office Visit Adult Medicine [facility] [address] [place] [address] Priya Resendez MD [address] [place] [address] Health Maintenance Due Date Last Done Comments Diabetes: Annual Retina Eye Exam 11/01/1960 Medicare Annual Wellness Visit 02/16/2022 COVID-19 Vaccine ( season) 2023 07/25/2021, 01/22/2021, 07/22/2020, Additional history exists Diabetes: Blood Sugar Control Test (HGBA1C) 07/13/2024 01/14/2024, 07/14/2023, 07/14/2023 Social Influencers of Health Screening 01/07/2025 01/08/2024 Diabetes: Annual Urine Albumin-Creatinine Ratio (uACR) 01/13/2025 01/14/2024, 07/14/2023 Diabetes: Annual Foot Exam 01/13/2025 01/14/2024, Diabetes: Annual GFR (Glomerular Filtration Rate) 01/13/2025 01/14/2024, 07/14/2023, 07/14/2023 Depression Screening 04/23/2025 04/23/2024 Falls Risk Assessment 04/30/2025 04/30/2024 Colorectal Cancer Screening: Colonoscopy 08/02/2025 08/03/2015 RSV [...] Procedure Name Priority Date/Time Associated Diagnosis Comments ECG 12-LEAD Routine 04/30/2024 12:00 PM EST Abnormal EKG DM (diabetes mellitus), type 2 with peripheral vascular complications (CMS/HCC) MICROALBUMIN CREATININE URINE RATIO Routine 01/14/2024 [...] Recently Relevant to Health Maintenance Results * ECG 12 lead (04/30/2024 12:00 PM EST) Corby Waggoner PA - 04/30/2024 12:00 PM EST EKG reviewed and sent for scan. ??Ventricular trigeminy noted, she us Corby RUANO ECG ORDERABLES Final Result * Lipid panel with reflex to direct LDL (01/14/2024 10:43 AM EST) Cholesterol 186 0 - 200 mg/dL LAB CHEMISTRY METHOD 01/14/2024 1:18 PM [facility] Triglycerides 68 0 - 150 mg/dL LAB CHEMISTRY METHOD 01/14/2024 1:18 PM [facility] HDL 89 >=40 mg/dL LAB CHEMISTRY METHOD 01/14/2024 1:18 PM [facility] LDL Calculated 83 0 - 100 mg/dL LAB CHEMISTRY METHOD 01/14/2024 1:18 PM [facility] VLDL Cholesterol Brandan 13.6 mg/dL LAB CHEMISTRY METHOD 01/14/2024 1:18 PM [facility] Non HDL Chol. (LDL+VLDL) 97 <145 mg/dL LAB CHEMISTRY METHOD 01/14/2024 1:18 PM EST [facility] Chol/HDL Ratio 2.1 0.0 - 4.4 LAB CHEMISTRY METHOD 01/14/2024 1:18 PM EST [facility] Blood Venous blood specimen / Unknown Venipuncture / Unknown 01/14/2024 10:43 AM EST 01/14/2024 10:44 AM EST C Ja Resendez MD LAB BLOOD ORDERABLES Final Res ult Performing Organization Address City/[facility]/ZIP Co de Phone Number [facility] [address] [place] [address], [place] [phone] * Microalbumin creatinine urine ratio (01/14/2024 10:43 AM EST) Creatinine, Urine 41.0 mg/dL LAB CHEMISTRY METHOD 01/14/2024 1:51 PM [facility] Microalb, Ur <5.0 0.0 - 29.0 mg/L LAB CHEMISTRY METHOD 01/14/2024 1:51 PM EST [facility] Microalb/Creat Ratio <12 <30 mg/g creat LAB CHEMISTRY METHOD 01/14/2024 1:51 PM [facility] Urine Urine specimen obtained by clean catch procedure / Unknown Non-blood Collection / Unknown 01/14/2024 10:43 AM EST 01/14/2024 10:44 AM EST C Ja Resendez MD LAB URINE ORDERABLES Final Res ult Performing Organization Address [facility]/ZIP Co de Phone Number [facility] [address] [place] [address], [place] [phone] * Hemoglobin A1c (01/14/2024 10:43 AM EST) Hemoglobin A1C 5.9 <6.5 % LAB CHEMISTRY METHOD 01/15/2024 6:42 PM [facility] Mean Bld Glu Estim. 123 mg/dL LAB CHEMISTRY METHOD 01/15/2024 6:42 PM [facility] Blood Venous blood specimen / Unknown Venipuncture / Unknown 01/14/2024 10:43 AM EST 01/14/2024 10:44 AM EST C Ja Resendez MD LAB BLOOD ORDERABLES Final Res ult [facility] [address] [place] [address], [place] [phone] * (ABNORMAL) Comprehensive metabolic panel (01/14/2024 10:43 AM EST) Sodium 141 133 - 145 mmol/L LAB CHEMISTRY METHOD 01/14/2024 1:18 PM [facility] Potassium 5.3 3.5 - 5.5 mmol/L LAB CHEMISTRY METHOD 01/14/2024 1:18 PM [facility] Chloride 106 96 - 110 mmol/L LAB CHEMISTRY METHOD 01/14/2024 1:18 PM [facility] CO2 32 21 - 32 mmol/L LAB CHEMISTRY METHOD 01/14/2024 1:18 PM [facility] Anion Gap 3 3 - 11 LAB CHEMISTRY METHOD 01/14/2024 1:18 PM [facility] Glucose 114(H) 70 - 100 mg/dL LAB CHEMISTRY METHOD 01/14/2024 1:18 PM [facility] BUN 20 5 - 25 mg/dL LAB CHEMISTRY METHOD 01/14/2024 1:18 PM [facility] Creatinine 0.85 0.70 - 1.30 mg/dL LAB CHEMISTRY METHOD 01/14/2024 1:18 PM [facility] eGFR 92 >=60 mL/min/1. 73m2 LAB CHEMISTRY METHOD 01/14/2024 1:18 PM [facility] Comment:Calculation based on the??Chronic Kidney Disease Epidemiology Collaboration (CKD-EPI) equation refit??without adjustment for race. BUN/Creatinine Ratio 23.5 LAB CHEMISTRY METHOD 01/14/2024 1:18 PM [facility] Calcium 10.7(H) 8.5 - 10.5 mg/dL LAB CHEMISTRY METHOD 01/14/2024 1:18 PM [facility] AST (SGOT) 17 10 - 42 unit/L LAB CHEMISTRY METHOD 01/14/2024 1:18 PM [facility] ALT (SGPT) 23 10 - 60 unit/L LAB CHEMISTRY METHOD 01/14/2024 1:18 PM [facility] Alkaline Phosphatase 89 42 - 121 unit/L LAB CHEMISTRY METHOD 01/14/2024 1:18 PM [facility] Total Protein 7.4 6.0 - 8.0 g/dL LAB CHEMISTRY METHOD 01/14/2024 1:18 PM [facility] Albumin 4.0 3.2 - 5.0 g/dL LAB CHEMISTRY METHOD 01/14/2024 1:18 PM [facility] Total Bilirubin 0.8 0.0 - 1.4 mg/dL LAB CHEMISTRY METHOD 01/14/2024 1:18 PM [facility] Blood Venous blood specimen / Unknown Venipuncture / Unknown 01/14/2024 10:43 AM EST 01/14/2024 10:44 AM EST C Ja Resendez MD LAB BLOOD ORDERABLES Final Res ult [facility] [address] [place] [address], * Diabetes Foot Exam (07/14/2023) Diabetes: Annual Foot Exam abstracted [facility] Provider HEALTH MAINTENANCE Final Result * Colonoscopy (08/03/2015) Colonoscopy no interpretation , abstracted Anatomical Region Laterality Modality Other Historical Provider HEALTH MAINTENANCE Final Result * Hepatitis C Screening (11/19/2011) Hepatitis C Screening abstracted Historical Provider HEALTH MAINTENANCE Final Result from Last 3 Months or Most Recently Relevant to Health Maintenance Insurance MEDICARE [facility] Care Teams Air Conditioning Unit Assembler Relationship Specialty Start Date End Date Priya Resendez MD [address] [place] [id number] PCP - General 10/16/01
--- OUTSIDE RECORDS SUMMARY | 2024-05-25 13:24 | XMS_ITS | Encounter Summary ---
Author Organization [facility] Address [address] [place] [address] Care Team Providers Care Pet Technologist Name Role Phone Priya Resendez MD Primary Care Provider [phone] Reason for Referral * Cardiac Stress Testing (Routine) - Authorized Specialty Diagnoses / Procedures Referred By Contac t Referred To Contact Diagnoses Abnormal EKG DM (diabetes mellitus), type 2 with peripheral vascular complications (CMS/HCC) [facility] [place] [facility]current[facility] drug therapy Procedures Cardiac event monitor WV EXTERNAL PATIENT ACTIVATED ECG DOWNLOAD W RESULTS & INTERP <= 30 DAYS WV EXTERNAL PAT AUTO ACTIVATED ECG INCLUDING TRANSMISSION UP TO 30 DAYS WV EXTERNAL MOBILE CV TELEMETRY W ECG RECORDING <=30D PHYSCIAN REV & INTERP WV EXTERNAL MOBILE CV TELEMETRY W ECG RECORDING TECH SUPPORT UP TO 30 DAYS WV ECG UP TO 30 DAYS RECORDING Corby Martinez PA [address] [place] [address] Phone: tel: fax: Cardiology, [facility] Referral ID Status Reason Start Date Expiration Date V isits Requested Visits Authorized [id number] Authorized 04/30/2024 04/30/2025 1 1 Reason for Visit * Reason Comments Hospital Follow-up Encounter Details Date Type Department Care Team (Latest Contact Info) Description 04/30/2024 9:00 AM EST Office Visit Adult Medicine - [place] [address] [place] [address] Corby Martinez PA [address] [place] [address] Abnormal EKG (Primary Dx); DM (diabetes mellitus), type 2 with peripheral vascular complications (CMS/HCC); Polymyalgia rheumatica (CMS/HCC); [facility] [place] [facility] [place] therapy Social History Tobacco Use Types Packs/Day Years [...] for your loved ones. For example, child support specialist or elderly care for an older adult? [...] on file Sexual Orientation Not on file documented as of this encounter Last Filed Vital Signs Vital Sign Reading Time Taken Comments Blood Pressure 120/62 04/30/2024 8:54 AM EST Pulse 94 04/30/2024 8:54 AM EST Temperature 36.7 ??C (98.1 ??F) 04/30/2024 8:54 AM ES T Respiratory Rate - - Oxygen Saturation - - Inhaled Oxygen Concentration - - Weight 78.5 kg (173 lb) 04/30/2024 8:54 AM EST Height 180.3 cm (5' 11 ) 04/30/2024 8:54 AM EST Body Mass Index 24.13 04/30/2024 8:54 AM EST documented in this encounter Progress Notes * ALDEN Pascual - 04/30/2024 9:00 AM EST CHIEF COMPLAINT: Hospital Follow-up IDENTIFIER: Arias Mares is a 73 y.o. old male. HPI: This is my first visit with Dr. Resendez patient here for hospital follow-up. He has significant history of diabetes, polymyalgia rheumatica. He was seen at the ER at [facility] in December for right shoulder pain. He has significant right rotator cuff tear. He then was seen on 04/16 for his surgery with Dr. Barnett which included right shoulder arthroscopic distal clavicle excision with right shoulder arthroscopic acromioplasty with no implants. EKG was found to be somewhat abnormal with possible history of septal infarct age undetermined and his preop rhythm strip showed some possible ventricular bigeminy. He did have cardiac workup back in 2019 according to a note from Dr. Resendez in 2020 that reported there were no significant findings during workup which did include stress testing. He has been able to exercise daily on the treadmill or stationary bicycle with no difficulty. Able to establish now without any problems. Has been on prednisone for polymyalgia rheumatica for some time. He does have diabetes but the diabetes was diagnosed previous to the polymyalgia so the prednisone is likely continuing to keep his blood sugar slightly elevated ROS: GENERAL: Negative for malaise, significant weight loss and fever HEENT: No changes in hearing or vision. 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 Renal cyst 07/08/2022 Polymyalgia rheumatica ([facility]) 12/10/2021 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), type 2 with peripheral vascular complications ([facility]) 08/03/2020 Elevated blood sugar 01/27/2020 Snoring 01/20/2020 Seborrheic keratoses 10/15/2018 Palpitations 04/22/2018 Pure hypercholesterolemia 06/20/2006 Calculus of kidney 06/10/2006 Lateral epicondylitis 06/10/2006 SOCIAL HISTORY: Social History Tobacco Use Smoking status: Never Smokeless tobacco: Never Substance Use Topics Alcohol use: Yes Alcohol/week: 3.0 standard drinks of alcohol FAMILY HISTORY: Family Status Relation Name Status Father Mother Brother Alive Sister Alive Sister Alive No partnership data on file Family History Problem Relation Name Age of Onset Colon polyps Father 70's Other cancer Father Other (Other: Prostate cancer) Father 70's Other (Other: Aortic aneurism) Father abdominal--82 Hypertension Mother Thyroid disease Mother Hyperlipidemia Brother ACTIVE MEDICATIONS: Outpatient Medications Marked as Taking for the 04/30/24 encounter (Office Visit) with ALDEN Pascual Medication Sig Dispense Refill blood glucose control high,low (FreeStyle Control) solution USE DIRECTED blood-glucose meter kit Check blood sugar bid FREESTYLE LANCETS [facility] CHECK BLOOD SUGAR DAILY metFORMIN XR (GLUCOPHAGE-XR) 500 mg 24 hr tablet 1 (one) time. pravastatin (PRAVACHOL) 40 mg tablet TAKE 1 TABLET BY MOUTH EVERY DAY 90 tablet 1 predniSONE (DELTASONE) 5 mg tablet Take 2 mg by mouth 1 (one) time each day. ALLERGIES: Hydrocodone-acetaminophen PHYSICAL EXAM: Blood pressure 120/62, pulse 94, temperature 36.7 ??C (98.1 ??F), temperature source Temporal, height 1.803 m (71 ), weight 78.5 kg (173 lb). Body mass index is 24.13 kg/m??. BMI is 18.5 to 24.9 (within the normal range) and will be followed APPEARANCE: Alert and in no acute distress MOUTH/THROAT: no erythema, lesions, or exudates NECK: Neck supple, no adenopathy, thyroid symmetric and of normal size HEART: RRR with normal S1 and S2, no murmurs, no gallops, no JVD appreciated LUNG: clear to auscultation bilaterally ABDOMEN: Bowel sounds normoactive, no bruits and soft, non-tender, without organomegaly or palpablemasses EXTREMITIES: Extremities warm and well perfused without clubbing, cyanosis, or edema LABS: Appointment on 01/14/2024 Component Date Value Ref Range Status Sodium 01/14/2024 141 133 - 145 mmol/L Final Potassium 01/14/2024 5.3 3.5 - 5.5 mmol/L Final Chloride 01/14/2024 106 96 - 110 mmol/L Final CO2 01/14/2024 32 21 - 32 mmol/L Final Anion Gap 01/14/2024 3 3 - 11 Final Glucose 01/14/2024 114 (H) 70 - 100 mg/dL Final BUN 01/14/2024 20 5 - 25 mg/dL Final Creatinine 01/14/2024 0.85 0.70 - 1.30 mg/dL Final eGFR 01/14/2024 92 >=60 mL/min/1.73m2 Final Calculation based on the Chronic Kidney Disease Epidemiology Collaboration (CKD- EPI) equation refitwithout adjustment for race. BUN/Creatinine Ratio 01/14/2024 23.5 Final Calcium 01/14/2024 10.7 (H) 8.5 - 10.5 mg/dL Final AST (SGOT) 01/14/2024 17 10 - 42 unit/L Final ALT (SGPT) 01/14/2024 23 10 - 60 unit/L Final Alkaline Phosphatase 01/14/2024 89 42 - 121 unit/L Final Total Protein 01/14/2024 7.4 6.0 - 8.0 g/dL Final Albumin 01/14/2024 4.0 3.2 - 5.0 g/dL Final Total Bilirubin 01/14/2024 0.8 0.0 - 1.4 mg/dL Final Hemoglobin A1C 01/14/2024 5.9 <6.5 % Final Mean Bld Glu Estim. 01/14/2024 123 mg/dL Final Cholesterol 01/14/2024 186 0 - 200 mg/dL Final Triglycerides 01/14/2024 68 0 - 150 mg/dL Final HDL 01/14/2024 89 >=40 mg/dL Final LDL Calculated 01/14/2024 83 0 - 100 mg/dL Final VLDL Cholesterol Brandan 01/14/2024 13.6 mg/dL Final Non HDL Chol. (LDL+VLDL) 01/14/2024 97 <145 mg/dL Final Chol/HDL Ratio 01/14/2024 2.1 0.0 - 4.4 Final Creatinine, Urine 01/14/2024 41.0 mg/dL Final Microalb, Ur 01/14/2024 <5.0 0.0 - 29.0 mg/L Final Microalb/Creat Ratio 01/14/2024 <12 <30 mg/g creat Final Abstract on 12/09/2023 Component Date Value Ref Range Status Hepatitis C Screening 11/19/2011 abstracted Final Annual BMP Blood Test 07/14/2023 abstracted Final Colonoscopy 08/03/2015 no interpretation, abstracted Final Diabetes: Annual Foot Exam 07/14/2023 abstracted Final Urine Albumin Creatinine Ratio 07/14/2023 abstracted Final LDL/HDL Ratio 07/14/2023 2 Final Triglycerides 07/14/2023 63 0 - 150 mg/dL Final Cholesterol 07/14/2023 179 0 - 200 mg/dL Final HDL 07/14/2023 85 >=40 mg/dL Final LDL Cholesterol 07/14/2023 82 0 - 100 mg/dL Final Hemoglobin A1C 07/14/2023 6.0 <=6.5 % Final IMPRESSION: 1. Abnormal EKG 2. DM (diabetes mellitus), type 2 with peripheral vascular complications (CMS/HCC) 3. Polymyalgia rheumatica (CMS/HCC) 4. [place] [facility] [place] PLAN: Abnormal EKG. Getting 7-day monitor referral to cardiology. Reviewed hospital notes, labs and EKG reports. Diabetes has been stable on metformin at home continue current treatment plan. A1c today. Polymyalgia rheumatica: On prednisone regularly following with outside provider. Discussed signs and symptoms warranting reevaluation. Risks, benefits, and side-effects of the medication were discussed and the patient expressed verbalunderstanding and consents to the plan. Followup as necessary. This note was created using dictation software and may contain syntax and grammar errors. Orders Placed This Encounter Procedures Cardiac event monitor ECG 12 lead ADDITIONAL ORDERS: None ALDEN Pascual on 04/30/2024 at 12:00 PM EST * Maria Joe MA - 04/30/2024 9:00 AM EST Electrocardiogram performed and reviewed by Corby Martinez PA-C. documented in this encounter Plan of Treatment Upcoming Encounters Date Type Department Care Team (Late st Contact Info) Description 07/14/2024 8:45 AM EDT Office Visit Adult Medicine [facility] [address] [place] [address] Priya Resendez MD [address] [place] [address] Scheduled Orders Name Type Priority Associated Diagnoses Orde r Schedule Cardiac event monitor Cardiac Services Routine Abnormal EKG DM (diabetes mellitus), type 2 with peripheral vascular complications (CMS/HCC) [place] [facility] [place] [place] 1 Occurrences starting 04/30/2024 until 04/30/2025 documented as of this encounter Procedures Procedure Name Priority Date/Time Associated Diagnosis Comments ECG 12-LEAD Routine 04/30/2024 12:00 PM EST Abnormal EKG DM (diabetes mellitus), type 2 with peripheral vascular complications (CMS/HCC) documented in this encounter Results * ECG 12 lead (04/30/2024 12:00 PM EST) Corby Waggoner PA - 04/30/2024 12:00 PM EST EKG reviewed and sent for scan. ??Ventricular trigeminy noted, she us Corby RUANO ECG ORDERABLES Final Result documented in this encounter Visit Diagnoses Diagnosis Abnormal EKG- Primary Nonspecific abnormal electrocardiogram (ECG) (EKG) DM (diabetes mellitus), type 2 with peripheral vascular complications (CMS/HCC) Type II or unspecified type diabetes mellitus with peripheral circulatory disorders, not stated as uncontrolled Polymyalgia rheumatica (CMS/HCC) Polymyalgia rheumatica [place] [facility] drug therapy documented in this encounter Additional Health Concerns Assessment Noted Time PHQ-9 Depression Total Score: 0 04/23/19 25 4:18 PM EST documented as of this encounter Care Teams Pet Technologist Relationship Specialty Start Date End Date Priya Resendez MD [address] [place] [id number] PCP - General 10/16/01 documented as of this encounter
== END 2024-05-25 11:47 | disposition home or self-care (01) ==
LOC: HO.RHE 11:06
PROVIDERS: PCP Pediatrics; Visit Provider Student in an Organized Health Care Education/Training Program
DX: M35.3 Polymyalgia rheumatica (principal); M85.89 Other specified disorders of bone density and structure, multiple sites; R00.1 Bradycardia, unspecified; Z79.52 Long term (current) use of systemic steroids; Z51.81 Encounter for therapeutic drug level monitoring; Z79.620 Long term (current) use of immunosuppressive biologic
CPT/HCPCS: 99214; G2211

== ENCOUNTER → 2024-05-25 11:06 | Outpatient (BNVA) | payer MEDICARE, SELFPAY | PROVIDERS: PCP Pediatrics; Visit Provider Student in an Organized Health Care Education/Training Program | DX: M35.3 Polymyalgia rheumatica (principal); Z51.81 Encounter for therapeutic drug level monitoring; M85.89 Other specified disorders of bone density and structure, multiple sites; R00.1 Bradycardia, unspecified; Z79.620 Long term (current) use of immunosuppressive biologic; Z79.52 Long term (current) use of systemic steroids | CPT/HCPCS: 99212 ==

== ENCOUNTER 2024-05-27 08:58 | Outpatient (AMB) | payer MEDICARE, SELFPAY ==
[2024-05-27 09:06] VITALS: BMI 24.1
--- NOTE | 2024-05-27 09:06 | A.OFFVIS_ITS ---
Vital Signs 05/27/24 09:06 Height 5 ft 11 in Weight 173 lb BMI 24.1 Intake Visit Reasons: Right shoulder pain Intake Note: Arias is a 73 year old left hand dominant male who presents with complaints of mild to moderate discomfort in his right shoulder after undergoing right shoulder arthroscopic surgery on 04/16/2024. He has been going to formal physical therapy which seems to have aggravated his pain. He denies any fevers or chills. He takes Tylenol as needed for his discomfort. Allergies hydrocodone Allergy (Severe, Verified 05/27/24 09:06) Vomiting oxycodone Allergy (Severe, Verified 05/27/24 09:06) Dizziness Medication List - Last Reconciled 05/27/24 by Dg Barnett MD cholecalciferol (vitamin D3) 50 mcg PO DAILY metformin ER 500 mg PO QAM pravastatin 40 mg PO BEDTIME prednisone 1 mg PO QAM tocilizumab (Actemra) 8mg/kg intravenously every 4 weeks; [facility] Medical History (Updated 05/27/24 @ 09:48 by Dg Barnett MD) Renal cyst Murmur AAA (abdominal aortic aneurysm) Diabetes Osteoarthritis TMJ arthralgia PMR (polymyalgia rheumatica) Osteopenia Decreased muscle strength High cholesterol Surgical History (Updated 05/25/24 @ 11:21 by NILA Barclay) History of shoulder surgery H/O colonoscopy Family History Father Colon polyps, Onset Age: 70 Prostate cancer, Onset Age: 70 Abdominal aortic aneurysm, Onset Age: 82 Mother Hypertension Thyroid disease Social History Household Members: Spouse Housing: House Are you a primary adult day care worker to a significant other at home: No Do you presently have visiting nurse or other home services: No Alcohol intake: current Alcohol intake frequency: a few times a month Alcohol type: beer Patient Tobacco Use Status: Never used Tobacco e-Cigarette/Vaping Use: Never Used service: No Current occupational status: retired 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 Mares continues to do well after undergoing right shoulder arthroscopic surgery on 04/16/2024. Will continue with his range of motion exercises. It is fine for him to now convert to a home exercise program instead of formal physical therapy if he prefers. The do's and don'ts of lifting were discussed at length with the patient. He will contact me prior to his follow-up appointment in 2 months should any questions or concerns arise. Feel free to call me at any time should questions regarding his orthopedic management arise. Coding Level of Care Code Global (75914) Diagnoses Right shoulder pain M25.511
--- OUTSIDE RECORDS SUMMARY | 2024-05-27 09:30 | XMS_ITS | Encounter Summary ---
Author Organization [facility] Address [address] [place] [address] Care Team Providers Care Cartoon Designer Name Role Phone Priya Resendez MD Primary Care Provider [phone] Reason for Referral * Cardiac Stress Testing (Routine) - Authorized Specialty Diagnoses / Procedures Referred By Contac t Referred To Contact Diagnoses Abnormal EKG DM (diabetes mellitus), type 2 with peripheral vascular complications (CMS/HCC) Other shelter (current) drug therapy Procedures Cardiac event monitor [place] EXTERNAL PATIENT ACTIVATED ECG DOWNLOAD W RESULTS & INTERP <= 30 DAYS NM EXTERNAL PAT AUTO ACTIVATED ECG INCLUDING TRANSMISSION UP TO 30 DAYS NM EXTERNAL MOBILE CV TELEMETRY W ECG RECORDING <=30D PHYSCIAN REV & INTERP NM EXTERNAL MOBILE CV TELEMETRY W ECG RECORDING TECH SUPPORT UP TO 30 DAYS NM ECG UP TO 30 DAYS RECORDING Corby Martinez PA [address] [place] [address] Phone: tel: fax: Cardiology, [facility] Referral ID Status Reason Start Date Expiration Date V isits Requested Visits Authorized [id number] Authorized 04/30/2024 04/30/2025 1 1 Reason for Visit * Reason Comments Hospital Follow-up Encounter Details Date Type Department Care Team (Latest Contact Info) Description 04/30/2024 9:00 AM EST Office Visit Adult Medicine - [place] [address] [place] [address] Corby Martinez PA [address] [place] [address] Abnormal EKG (Primary Dx); DM (diabetes mellitus), type 2 with peripheral vascular complications (CMS/HCC); Polymyalgia rheumatica (CMS/HCC); Other shelter (current) drug therapy Social History Tobacco Use [...] care for your loved ones. For example, childcare center director or elderly care for an older [...] He was seen at the ER at [facility] in December for right shoulder pain. 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 Polymyalgia rheumatica (CMS/HCC) 4. Other shelter (current) drug therapy PLAN: Abnormal EKG. Getting [...] 8:45 AM EDT Office Visit Adult Medicine [facility] [address] [place] [address] Priya Resendez MD [address] [place] [address] Scheduled Orders Name Type Priority Associated Diagnoses Orde r Schedule Cardiac event monitor Cardiac Services Routine Abnormal EKG DM (diabetes mellitus), type 2 with peripheral vascular complications (CMS/HCC) Other shelter (current) drug therapy 1 Occurrences starting 04/30/2024 [...] uncontrolled Polymyalgia rheumatica (CMS/HCC) Polymyalgia rheumatica Other shelter (current) drug therapy documented in this encounter Additional Health Concerns Assessment Noted Time PHQ-9 Depression Total Score: 0 04/23/19 25 4:18 PM EST documented as of this encounter Care Teams Cartoon Designer Relationship Specialty Start Date End Date Priya Resendez MD [address] [place] [id number] PCP - General 10/16/01 documented as of this encounter
--- OUTSIDE RECORDS SUMMARY | 2024-05-27 09:30 | XMS_ITS | Clinical Summary ---
Author Organization [facility] [address] [facility] lding Address [address] [place] [address] Phone Care Team Providers Care Hat And Cap Drying Room Attendant Name Role Phone Priya Resendez MD Primary Care Provider [phone] Allergies Active Allergy Reactions Criticality Noted Date [...] 9:00 AM EST Office Visit Adult Medicine [address] [address] Corby Martinez PA Abnormal EKG (Primary Dx); DM (diabetes mellitus), type 2 with peripheral vascular complications (CMS/HCC); Polymyalgia rheumatica (CMS/HCC); Other chcf (current) drug therapy from Last 3 Months Immunizations Name Administration [...] care for your loved ones. For example, exceptional children's teacher or elderly care for an older [...] 8:45 AM EDT Office Visit Adult Medicine - [place] [address] [place] [address] Priya Resendez MD [address] [place] [address] Health Maintenance Due Date Last Done Comments [...] sent for scan. ??Ventricular trigeminy noted, she Corby RUANO ECG ORDERABLES Final Result * Lipid panel with reflex to direct LDL (01/14/2024 10:43 AM EST) Cholesterol 186 0 - 200 mg/dL LAB CHEMISTRY METHOD 01/14/2024 1:18 PM [facility] Triglycerides 68 0 - 150 mg/dL LAB CHEMISTRY METHOD 01/14/2024 1:18 PM [facility] HDL 89 >=40 mg/dL LAB CHEMISTRY METHOD 01/14/2024 1:18 PM [facility] LDL Calculated 83 0 - 100 mg/dL LAB CHEMISTRY METHOD 01/14/2024 1:18 PM [facility] VLDL Cholesterol Brandan 13.6 mg/dL LAB CHEMISTRY METHOD 01/14/2024 1:18 PM [facility] Non HDL Chol. (LDL+VLDL) 97 <145 mg/dL LAB CHEMISTRY METHOD 01/14/2024 1:18 PM [facility] Chol/HDL Ratio 2.1 0.0 - 4.4 LAB CHEMISTRY METHOD 01/14/2024 1:18 PM EST [facility] Blood Venous blood specimen / Unknown Venipuncture / Unknown 01/14/2024 10:43 AM EST 01/14/2024 10:44 AM EST Priya Resendez MD LAB BLOOD ORDERABLES Final Res ult [facility] [address] [place] [address], [place] [phone] * Microalbumin creatinine urine ratio (01/14/2024 10:43 AM EST) Creatinine, Urine 41.0 mg/dL LAB CHEMISTRY METHOD 01/14/2024 1:51 PM [facility] Microalb, Ur <5.0 0.0 - 29.0 mg/L LAB CHEMISTRY METHOD 01/14/2024 1:51 PM EST [facility] Microalb/Creat Ratio <12 <30 mg/g creat LAB CHEMISTRY METHOD 01/14/2024 1:51 PM EST [facility] Urine Urine specimen obtained by clean catch procedure / Unknown Non-blood Collection / Unknown 01/14/2024 10:43 AM EST 01/14/2024 10:44 AM EST Priya Resendez MD LAB URINE ORDERABLES Final Res ult [facility] [address] [place] [address], [place] [phone] * Hemoglobin A1c (01/14/2024 10:43 AM EST) Hemoglobin A1C 5.9 <6.5 % LAB CHEMISTRY METHOD 01/15/2024 6:42 PM EST [facility] Mean Bld Glu Estim. 123 mg/dL LAB CHEMISTRY METHOD 01/15/2024 6:42 PM EST [facility] Blood Venous blood specimen / Unknown Venipuncture / Unknown 01/14/2024 10:43 AM EST 01/14/2024 10:44 AM EST [facility] Ja Resendez MD LAB BLOOD ORDERABLES Final Res ult [facility] [address] [place] [address], [place] [phone] * (ABNORMAL) Comprehensive metabolic panel (01/14/2024 10:43 AM EST) Sodium 141 133 - 145 mmol/L LAB CHEMISTRY METHOD 01/14/2024 1:18 PM [facility] Potassium 5.3 3.5 - 5.5 mmol/L LAB CHEMISTRY METHOD 01/14/2024 1:18 PM [facility] Chloride 106 96 - 110 mmol/L LAB CHEMISTRY METHOD 01/14/2024 1:18 PM [facility] CO2 32 21 - 32 mmol/L LAB CHEMISTRY METHOD 01/14/2024 1:18 PM [facility] Anion Gap 3 3 - 11 LAB CHEMISTRY METHOD 01/14/2024 1:18 PM [facility] Glucose 114(H) 70 - 100 mg/dL LAB CHEMISTRY METHOD 01/14/2024 1:18 PM [facility] BUN 20 5 - 25 mg/dL LAB CHEMISTRY METHOD 01/14/2024 1:18 PM [facility] Creatinine 0.85 0.70 - 1.30 mg/dL LAB CHEMISTRY METHOD 01/14/2024 1:18 PM [facility] eGFR 92 >=60 mL/min/1. 73m2 LAB CHEMISTRY METHOD 01/14/2024 1:18 PM [facility] Comment:Calculation based on the??Chronic Kidney Disease Epidemiology Collaboration (CKD-EPI) equation refit??without adjustment for race. BUN/Creatinine Ratio 23.5 LAB CHEMISTRY METHOD 01/14/2024 1:18 PM [facility] Calcium 10.7(H) 8.5 - 10.5 mg/dL LAB CHEMISTRY METHOD 01/14/2024 1:18 PM [facility] AST (SGOT) 17 10 - 42 unit/L LAB CHEMISTRY METHOD 01/14/2024 1:18 PM [facility] ALT (SGPT) 23 10 - 60 unit/L LAB CHEMISTRY METHOD 01/14/2024 1:18 PM [facility] Alkaline Phosphatase 89 42 - 121 unit/L LAB CHEMISTRY METHOD 01/14/2024 1:18 PM [facility] Total Protein 7.4 6.0 - 8.0 g/dL LAB CHEMISTRY METHOD 01/14/2024 1:18 PM [facility] Albumin 4.0 3.2 - 5.0 g/dL LAB CHEMISTRY METHOD 01/14/2024 1:18 PM [facility] Total Bilirubin 0.8 0.0 - 1.4 mg/dL LAB CHEMISTRY METHOD 01/14/2024 1:18 PM [facility] Blood Venous blood specimen / Unknown Venipuncture / Unknown 01/14/2024 10:43 AM EST 01/14/2024 10:44 AM EST Priya Resendez MD LAB BLOOD ORDERABLES Final Res ult [facility] [address] [place] [address], * Diabetes Foot Exam (07/14/2023) Pathologist [facility] Diabetes: Annual Foot Exam abstracted Historical Provider HEALTH MAINTENANCE Final Result * Colonoscopy (08/03/2015) [facility] Colonoscopy no interpretation , abstracted Anatomical Region Laterality Modality Other Historical Provider HEALTH MAINTENANCE Final Result * Hepatitis C Screening (11/19/2011) Hepatitis C Screening abstracted Historical Provider HEALTH MAINTENANCE Final Result from Last 3 Months or Most Recently Relevant to Health Maintenance Insurance MEDICARE [facility] Care Teams Hat And Cap Drying Room Attendant Relationship Specialty Start Date End Date Priya Resendez MD [address] [place] [address] PCP - General 10/16/01
== END 2024-05-27 09:41 | disposition home or self-care (01) ==
LOC: HO.HOS 08:59
PROVIDERS: PCP Pediatrics; Visit Provider Orthopaedic Surgery
DX: M25.511 Pain in right shoulder (principal)
CPT/HCPCS: 99024

== ENCOUNTER → 2024-05-27 08:58 | Outpatient (BNVA) | payer MEDICARE, SELFPAY | PROVIDERS: PCP Pediatrics; Visit Provider Orthopaedic Surgery | DX: M25.511 Pain in right shoulder (principal); Z47.89 Encounter for other orthopedic aftercare; Z98.890 Other specified postprocedural states | CPT/HCPCS: 99212 ==

== ENCOUNTER 2024-06-11 12:41 | Outpatient (RCR) | payer MEDICARE, SELFPAY ==
--- NOTE | 2024-05-18 14:48 | MHC.PT.EP ---
[facility] [place] Office [place] Office [place] Office [address] Juan Manuel Orellana [address] [phone] F: [phone] F: [phone] F: [phone] F: [phone] Physical Therapy Plan of Care Date of Evaluation: 05/18/24 Date of Surgery: 04/16/24 Diagnosis: R SHLDER SURGERY DCE, SAD, BURSECTOMY/DEBRIDEMENT OF [place] AND GLENOID Assessment: Pt IS 73 YO M REFERRED TO PT FROM [facility]THO ([facility]) S/P R SHLDER SURGERY BY DR SIMS ON Apr. PRESENTS WITH POOR POSTURE, DECREASED R SHLDER ROM AND STRENGTH, WITH PAIN AND LIMITED USE OF R UE. SHOULD BENEFIT FROM PT TO ADDRESS THESE ISSUES Frequency and Duration: The patient will be seen 2X/WK X 6 WKS Short Term Goals: 1. INCREASED AWARENESS POSTURE AND SHLDER CARE 2. I HEP WITH DC EX PLAN Intermediate Goals: 1. DECREASED R SHLDER PAIN AT LEAST 50% WITH ADLS 2. INCREASED R SHLDER ROM 20-30 DEGREES T/O 3. INCREASED R SHLDER STRENGTH EVIDENCED BY IMPROVED USE OF R UE FOR ADLS Treatment Plan: Modalities to reduce pain, spasms and effusion. Manual therapy to restore motion and function. Therapeutic exercise to improve strength and flexibility. Neuromuscular re-education for posture and balance. Therapeutic activities to return to functional activities of daily living. Electronically signed by: LOW LOCO PT Please sign and return to therapist. Thank you for your referral.
--- NOTE | 2024-08-11 09:55 | MHC.PT.DC ---
[facility] [place] [facility] [place] Office [place] Office [address] Juan Manuel Orellana [address] [phone] F: [phone] F: [phone] F: [phone] F: [phone] Physical Therapy Discharge Report Diagnosis: R SHLDER SURGERY DCE, SAD, BURSECTOMY/DEBRIDEMENT OF WAINWRIGHT AND GLENOID Date of Surgery: 04/16/24 Date of Evaluation: 05/18/24 Date of Discharge: 08/11/24 Treatments to Date: 8 Cancellations to Date: No Shows to Date: Discharge Status: Improved Function Independent with HEP Patient Elected to Stop Discharge Summary: Pt SEEN FOR INIT EVAL AND 7 FU VISITS. THEN CANCELLED LAST 2 PT APPTS WITHOUT SCHEDULING MORE. PER ASSESSMENT BY DONNY SERVICE ADVISOR AT LAST SESSION ON 06/11/24 Some fatigue noted with RS exercises however no discomfort. Continues to perform all exercises w/good form and minimal cuing for mechanics.' PER ORTHO VISIT WITH DR SIMS ON 07/27/24 'Mr. Mares continues to do well after undergoing right shoulder arthroscopic surgery on 04/16/2024. He will continue with his range of motion exercises. The do's and don'ts of lifting were discussed at length with the patient. He will follow up with me on an as-needed basis should any questions or concerns arise. Feel free to call me at any time should questions regarding his orthopedic management arise.' Electronically signed by: LOW LOCO PT Please sign and return to therapist. Thank you for your referral.
== END 2024-08-11 09:55 | disposition home or self-care (01) ==
LOC: HO.PT 12:41
PROVIDERS: PCP Pediatrics; Visit Provider Physician Assistant
DX: M75.121 Complete rotator cuff tear or rupture of right shoulder, not specified as traumatic (principal); M25.811 Other specified joint disorders, right shoulder; Z98.890 Other specified postprocedural states
CPT/HCPCS: 97110; 97140; 97161; 97530; 97535

== ENCOUNTER 2024-07-27 09:19 | Outpatient (AMB) | payer MEDICARE, SELFPAY ==
--- NOTE | 2024-07-27 09:27 | MHC.OFFVIS ---
Vital Signs 07/27/24 09:31 Height 5 ft 11 in Weight 175 lb BMI 24.4 Intake Visit Reasons: OV- right RTC Repair 04/16/24 Intake Note: Arias is a 73 year old left hand dominant male who presents for follow up after undergoing a right rotator cuff repair on 04/16/2024. Patient reports he is doing great, does mention random episodes of shooting pain from the shoulder down the arm that occur with certain movements. He denies any fevers or chills. He continues with his range of motion exercises. Allergies hydrocodone Allergy (Severe, Verified 07/27/24 09:30) Vomiting oxycodone Allergy (Severe, Verified 07/27/24 09:30) Dizziness Medication List - Last Reconciled 07/27/24 by Dg Barnett MD cholecalciferol (vitamin D3) 50 mcg PO DAILY metformin ER 500 mg PO QAM pravastatin 40 mg PO BEDTIME prednisone 1 mg PO QAM tocilizumab (Actemra) 8mg/kg intravenously every 4 weeks; [facility] Medical History (Updated 05/27/24 @ 09:48 by Dg Barnett MD) Renal cyst Murmur AAA (abdominal aortic aneurysm) Diabetes Osteoarthritis TMJ arthralgia PMR (polymyalgia rheumatica) Osteopenia Decreased muscle strength High cholesterol Surgical History (Updated 05/25/24 @ 11:21 by NILA Barclay) History of shoulder surgery H/O colonoscopy Family History Father Colon polyps, Onset Age: 70 Prostate cancer, Onset Age: 70 Abdominal aortic aneurysm, Onset Age: 82 Mother Hypertension Thyroid disease Social History Household Members: Spouse Housing: House Are you a primary career counselor to a significant other at home: No Do you presently have visiting nurse or other home services: No Alcohol intake: current Alcohol intake frequency: a few times a month Alcohol type: beer Patient Tobacco Use Status: Never used Tobacco e-Cigarette/Vaping Use: Never Used service: No Current occupational status: retired 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 Mares continues to do well after undergoing right shoulder arthroscopic surgery on 04/16/2024. He will continue with his range of motion exercises. The do's and don'ts of lifting were discussed at length with the patient. He will follow up with me on an as-needed basis should any questions or concerns arise. Feel free to call me at any time should questions regarding his orthopedic management arise. I spent 22 minutes in reviewing the patient's records and imaging studies, seeing the patient and documenting in the medical record. Coding Level of Care Code Est Pt Level 3 (70119) Complex EM visit Add On G2211 Diagnoses Right shoulder pain M25.511
[2024-07-27 09:31] VITALS: BMI 24.4
--- OUTSIDE RECORDS SUMMARY | 2024-07-27 10:04 | XMS_ITS | Clinical Summary ---
Author Organization [facility] [address] [facility] lding Address [address] [place] [address] Phone Care Team Providers Care Planner/Scheduler Name Role Phone Priya Resendez MD Primary Care Provider [phone] Allergies Active Allergy Reactions Criticality Noted Date Comments Hydrocodone-Acetaminophen 04/20/2016 Medications blood glucose control high,low (FreeStyle Control) solution USE DIRECTED 021 Active FREESTYLE LANCETS MISC CHECK BLOOD SUGAR DAILY 024 Active predniSONE (DELTASONE) 5 mg tablet Take 2 mg by mouth 1 (one) time each day. 023 Active blood-glucose meter kit Check blood sugar bid 021 Active pravastatin (PRAVACHOL) 40 mg tablet TAKE 1 TABLET BY MOUTH EVERY DAY 90 tablet 1 024 Active tocilizumab (Actemra) 20 mg/mL solution Infuse into a venous catheter. Active blood sugar diagnostic (FreeStyle Lite Strips) test stripIndications :DM (diabetes mellitus), type 2 with peripheral vascular complications (CMS/HCC V24, CMS/HCC V28) Use as instructedUSE TO CHECK BLOOD SUGAR ONCE DAILY 100 strip 1 025 Active blood sugar diagnostic (FreeStyle Lite Strips) test strip USE TO CHECK BLOOD SUGAR ONCE DAILY 024 2024 Discontinued(R eorder) metFORMIN XR (GLUCOPHAGE-XR) 500 mg 24 hr tablet Take 1 tablet (500 mg total) by mouth 1 (one) time each day. Do not crush, chew, or split. 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 Borderline right Iliac aneurysm 03/02. Ectasia, no aneurysm Renal cyst 07/08/2022 Overview (12/09/2023): Ultrasound. Follow up CT multiple bilateral simple cysts. Polymyalgia rheumatica ([facility] V24) 12/10/2021 Overview (12/09/2023): Shumacher 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), type 2 with peripheral vascular complications ([facility] V24, [facility] V28) 08/03/2020 Elevated blood sugar 01/27/2020 Overview (12/09/2023): 01/27 Snoring 01/20/2020 Overview (12/09/2023): Previous sleep apnea testing negative approximately 2000 per patient. Seborrheic keratoses 10/15/2018 Palpitations 04/22/2018 Pure hypercholesterolemia 06/20/2006 Overview (12/09/2023): 06/14--diet, exercise Calculus of kidney 06/10/2006 Overview (12/09/2023): 1997 Lateral epicondylitis 06/10/2006 Overview (12/09/2023): IMO update Encounters Date Type Department Care Team Description 07/14/2024 8:45 AM EDT Office Visit Adult [facility] [address] [place] [address] Priya Resendez MD DM (diabetes mellitus), type 2 with peripheral vascular complications ([facility] V24, [facility] V28) (Primary Dx); Pure hypercholesterolemia 04/30/2024 9:00 AM EST Office Visit [facility] [address] [place] [address] Corby Martinez PA Abnormal EKG (Primary Dx); DM (diabetes mellitus), type 2 with peripheral vascular complications (CMS/HCC V24, CMS/[facility] V28); Polymyalgia rheumatica ([facility] V24); Other fdc (current) drug therapy from Last 3 Months [...] for your loved ones. For example, children's aide or elderly care for an older adult? [...] Sign Reading Time Taken Comments Blood Pressure 126/55 07/14/2024 8:40 AM EDT Pulse 67 07/14/2024 8:40 AM EDT Temperature 36.3 ??C (97.4 ??F) 07/14/2024 8:40 AM ED T Respiratory Rate 16 01/14/2024 9:54 AM EST Oxygen Saturation - - Inhaled Oxygen Concentration - - Weight 78.9 kg (174 lb) 07/14/2024 8:40 AM EDT Height 180.3 cm (5' 11 ) 07/14/2024 8:40 AM EDT Body Mass Index 24.27 07/14/2024 8:40 AM EDT Plan of Treatment Upcoming Encounters Date Type Department Care Team (Late st Contact Info) Description 01/17/2025 8:30 AM EST Office Visit Adult Medicine - [place] [address] [place] [address] Priya Resendez MD [address] [place] [address] Health Maintenance Due Date Last Done Comments Diabetes: Annual Retina Eye Exam 11/01/1960 Medicare Annual Wellness Visit 02/16/2022 COVID-19 Vaccine ( season) 2023 07/25/2021, 01/22/2021, 07/22/2020, Additional history exists Social Influencers of Health Screening 01/07/2025 01/08/2024 Diabetes: Blood Sugar Control Test (HGBA1C) 01/14/2025 07/14/2024, 01/14/2024, 07/14/2023, Additional history exists Depression Screening 07/07/2025 07/07/2024 Diabetes: Annual Urine Albumin-Creatinine Ratio (uACR) 07/14/2025 07/14/2024, 01/14/2024, 07/14/2023 Diabetes: Annual Foot Exam 07/14/202507/14, 01/14/2024, 07/14/2023 Diabetes: Annual GFR (Glomerular Filtration Rate) 07/14/2025 07/14/2024, 01/14/2024, 07/14/2023, Additional history exists Falls Risk Assessment 07/14/2025 07/14/2024 Colorectal Cancer Screening: Colonoscopy 08/02/2025 08/03/2015 RSV Immunization Adult Patients (1 - 1-dose 75+ series) 11/01/2026 DTaP,Tdap,and Td Vaccines (6 - Td or Tdap) 03/26/2027 03/26/2017, 06/09/2006, 07/19/2004, Additional history exists Cholesterol Screening (Lipid Panel) 07/14/2029 07/14/2024, 01/14/2024, 07/14/2023, Additional history exists Hepatitis C Screening Completed 11/19/2011 Pneumococcal Vaccine: [...] age to complete this topic Meningococcal B Vaccine Aged Out No l onger eligible based on patient's age to complete this topic RSV Immunization Patients Under 20 months Aged Out No longer eligible based on patient's age to complete this topic Varicella Vaccines Aged Out No longer eligible based on patient's age to complete this topic Procedures Procedure Name Priority Date/Time Associated Diagnosis Comments MICROALBUMIN CREATININE URINE RATIO Routine 07/14/2024 9:13 AM EDT DM (diabetes mellitus), type 2 with peripheral vascular complications (CMS/HCC V24, CMS/HCC V28) LIPID PANEL WITH REFLEX TO DIRECT LDL Routine 07/14/2024 9:05 AM EDT DM (diabetes mellitus), type 2 with peripheral vascular complications (CMS/HCC V24, CMS/HCC V28) HEMOGLOBIN A1C Routine 07/14/2024 9:05 AM EDT DM (diabetes mellitus), type 2 with peripheral vascular complications (CMS/HCC V24, CMS/HCC V28) COMPREHENSIVE METABOLIC PANEL Routine 07/14/2024 9:05 AM EDT DM (diabetes mellitus), type 2 with peripheral vascular complications (CMS/HCC V24, CMS/HCC V28) ECG 12-LEAD Routine 04/30/2024 12:00 PM EST Abnormal EKG DM (diabetes mellitus), type 2 with peripheral vascular complications (CMS/HCC V24, CMS/HCC V28) DIABETES FOOT EXAM Routine 07/14/2023 COLONOSCOPY Routine 08/03/2015 HEPATITIS C SCREENING Routine 11/19/2011 from Last 3 Months or Most Recently Relevant to Health Maintenance Results * (ABNORMAL) Microalbumin creatinine urine ratio (07/14/2024 9:13 AM EDT) Creatinine, Urine 16.0 mg/dL LAB CHEMISTRY METHOD 07/14/2024 8:30 PM EDT [facility] Microalb, Ur 6.6 0.0 - 29.0 mg/L LAB CHEMISTRY METHOD 07/14/2024 8:30 PM EDT [facility] Microalb/Creat Ratio 41(H) <30 mg/g creat LAB CHEMISTRY METHOD 07/14/2024 8:30 PM EDT [facility] Urine Urine specimen obtained by clean catch procedure / Unknown Non-blood Collection / Unknown 07/14/2024 9:13 AM EDT 07/14/2024 9:13 AM EDT C Ja Resendez MD LAB URINE ORDERABLES Final Res ult [facility] [address] [place] [address], * Lipid panel with reflex to direct LDL (07/14/2024 9:05 AM EDT) Cholesterol 183 0 - 200 mg/dL LAB CHEMISTRY METHOD 07/14/2024 12:24 PM EDT [facility] Triglycerides 63 0 - 150 mg/dL LAB CHEMISTRY METHOD 07/14/2024 12:24 PM EDT [facility] HDL 83 >=40 mg/dL LAB CHEMISTRY METHOD 07/14/2024 12:24 PM EDT [facility] LDL Calculated 87 0 - 100 mg/dL LAB CHEMISTRY METHOD 07/14/2024 12:24 PM EDT [facility] VLDL Cholesterol Brandan 12.6 mg/dL LAB CHEMISTRY METHOD 07/14/2024 12:24 PM EDT [facility] Non HDL Chol. (LDL+VLDL) 100 <145 mg/dL LAB CHEMISTRY METHOD 07/14/2024 12:24 PM EDT [facility] Chol/HDL Ratio 2.2 0.0 - 4.4 LAB CHEMISTRY METHOD 07/14/2024 12:24 PM EDT [facility] Blood Venous blood specimen / Unknown Venipuncture / Unknown 07/14/2024 9:05 AM EDT 07/14/2024 9:09 AM EDT us Priya Resendez MD LAB BLOOD ORDERABLES Final Res ult Performing Organization Address [facility] Co de Phone Number [facility] [address] [place] [address], [place] [phone] * Hemoglobin A1c (07/14/2024 9:05 AM EDT) Hemoglobin A1C 5.3 <6.5 % LAB CHEMISTRY METHOD 07/14/2024 2:24 PM EDT [facility] Mean Bld Glu Estim. 105 mg/dL LAB CHEMISTRY METHOD 07/14/2024 2:24 PM EDT [facility] Blood Venous blood specimen / Unknown Venipuncture / Unknown 07/14/2024 9:05 AM EDT 07/14/2024 9:09 AM EDT us Priya Resendez MD LAB BLOOD ORDERABLES Final Res ult Performing Organization Address City/[facility]/ZIP Co de Phone Number [facility] [address] [place] [address], [place] [phone] * (ABNORMAL) Comprehensive metabolic panel (07/14/2024 9:05 AM EDT) Sodium 139 133 - 145 mmol/L LAB CHEMISTRY METHOD 07/14/2024 12:22 PM EDT [facility] Potassium 4.6 3.5 - 5.5 mmol/L LAB CHEMISTRY METHOD 07/14/2024 12:22 PM [facility] Chloride 105 96 - 110 mmol/L LAB CHEMISTRY METHOD 07/14/2024 12:22 PM [facility] CO2 29 21 - 32 mmol/L LAB CHEMISTRY METHOD 07/14/2024 12:22 PM [facility] Anion Gap 5 3 - 11 LAB CHEMISTRY METHOD 07/14/2024 12:22 PM [facility] Glucose 104(H) 70 - 100 mg/dL LAB CHEMISTRY METHOD 07/14/2024 12:22 PM [facility] BUN 21 5 - 25 mg/dL LAB CHEMISTRY METHOD 07/14/2024 12:22 PM [facility] Creatinine 0.88 0.70 - 1.30 mg/dL LAB CHEMISTRY METHOD 07/14/2024 12:22 PM [facility] eGFR 91 >=60 mL/min/1. 73m2 LAB CHEMISTRY METHOD 07/14/2024 12:22 PM [facility] Comment:Calculation based on the Chronic Kidney Disease Epidemiology Collaboration (CKD-EPI) equation refit without adjustment for race. BUN/Creatinine Ratio 23.9 LAB CHEMISTRY METHOD 07/14/2024 12:22 PM [facility] Calcium 9.8 8.5 - 10.5 mg/dL LAB CHEMISTRY METHOD 07/14/2024 12:22 PM [facility] AST (SGOT) 25 10 - 42 unit/L LAB CHEMISTRY METHOD 07/14/2024 12:22 PM [facility] ALT (SGPT) 29 10 - 60 unit/L LAB CHEMISTRY METHOD 07/14/2024 12:22 PM [facility] Alkaline Phosphatase 81 42 - 121 unit/L LAB CHEMISTRY METHOD 07/14/2024 12:22 PM [facility] Total Protein 7.0 6.0 - 8.0 g/dL LAB CHEMISTRY METHOD 07/14/2024 12:22 PM EDT [facility] Albumin 4.2 3.2 - 5.0 g/dL LAB CHEMISTRY METHOD 07/14/2024 12:22 PM EDT [facility] Total Bilirubin 1.1 0.0 - 1.4 mg/dL LAB CHEMISTRY METHOD 07/14/2024 12:22 PM EDT [facility] Blood Venous blood specimen / Unknown Venipuncture / Unknown 07/14/2024 9:05 AM EDT 07/14/2024 9:09 AM EDT Result [facility] Priya Resendez MD LAB BLOOD ORDERABLES Final Res ult [facility] [address] [place] [address], [place] [phone] * ECG 12 lead (04/30/2024 12:00 PM EST) Narrative Corby Martinez PA - 04/30/2024 12:00 PM EST EKG reviewed and sent for scan. ??Ventricular trigeminy noted, she us Corby RUANO ECG ORDERABLES Final Result * Diabetes Foot Exam (07/14/2023) [facility] Diabetes: Annual Foot Exam abstracted Result [facility] Marcos RAMIREZ HEALTH MAINTENANCE Final Result * Colonoscopy (08/03/2015) [facility] Colonoscopy no interpretation , abstracted Anatomical Region Laterality Modality Other Result [facility] Marcos RAMIREZ HEALTH MAINTENANCE Final Result * Hepatitis C Screening (11/19/2011) [facility] Hepatitis C Screening abstracted Result [facility] Manda Rodríguez MD HEALTH MAINTENANCE Final Result from Last 3 Months or Most Recently Relevant to Health Maintenance Insurance [facility]ICARE [facility] Care Teams Planner/Scheduler Relationship Specialty Start Date End Date Priya Resendez MD [address] [place] [address] PCP - General 10/16/01
== END 2024-07-27 09:43 | disposition home or self-care (01) ==
LOC: HO.HOS 09:19
PROVIDERS: PCP Pediatrics; Visit Provider Orthopaedic Surgery
DX: Z47.89 Encounter for other orthopedic aftercare (principal); M25.511 Pain in right shoulder
CPT/HCPCS: 99213; G2211

== ENCOUNTER → 2024-07-27 09:19 | Outpatient (BNVA) | payer MEDICARE, SELFPAY | PROVIDERS: PCP Pediatrics; Visit Provider Orthopaedic Surgery | DX: M25.511 Pain in right shoulder (principal); Z98.890 Other specified postprocedural states | CPT/HCPCS: 99212 ==

== ENCOUNTER 2024-09-13 09:20 | Outpatient (REF) | payer MEDICARE, SELFPAY ==
--- OUTSIDE RECORDS SUMMARY | 2024-09-09 16:26 | XMS_ITS | Continuity of Care Document ---
Author Organization [facility] ter Address [address] [place] [id number]- Care Team Providers Care Vertica Architect Name Role Phone Ignacio Resendez MD Primary Care Physician [phone] Encounter [facility] Date(s): 09/08/24 - 09/09/[address] [address] [place] Discharge Disposition: A-D/C Home Attending Physician: Jay Crawford MD Admitting Physician: Aditya Sanford Sr, MD Referring Physician: Aditya Sanford Sr, MD Encounter Type: Disch IP Allergies, Adverse Reactions, Alerts Substance Criticality Severity Reaction Reaction Severity Status Vicodin Active oxyCODONE Active Medications Actemra gets infusion as an outpatient every 4 weeks, 0 Refills, Maintenance, 09/08/24 6:39:00 PM EDT, Partial fill upon patient request if the prescription is for a schedule II opioid drug. Start Date: 09/08/24 Status: Ordered Repeat number: 1 aspirin 81 mg oral delayed release tablet 81 mg, By Mouth, Daily, # 30 tablet, Refills 0, Tot. Refills 0, Maintenance, 09/09/24 1:48:00 PM EDT,Route to Pharmacy Electronically, [facility], Partial fill upon patient request if the prescription is for a schedule II opioid drug., 180, cm, 09/09/24 13:18:00 EDT, Height, 77, kg, 09/08/24 18:17:00 EDT, Dry Weight Start Date: 09/09/24 Status: Ordered Quantity: 30.0 Unit: tablet Repeat number: 1 metoprolol 25 mg oral tablet 25 mg, By Mouth, 2 times a day, # 60 tablet, Refills 0, Tot. Refills 0, Maintenance, 09/09/24 1:48:00PM EDT, Route to Pharmacy Electronically, [facility], Partial fill upon patient request if the prescription is for a schedule II opioid drug., 180, cm, 09/09/24 13:18:00 EDT, Height, 77, kg, 09/08/24 18:17:00 EDT, Dry Weight Start Date: 09/09/24 Status: Ordered Quantity: 60.0 Unit: tablet Repeat number: 1 metoprolol 25 mg oral tablet 25 mg, Tablet, By Mouth, Hold for: SBP LESS THAN 100, HR LESS THAN 60, 09/09/24 9:00:00 AM EDT Start Date: 09/09/24 Stop Date: 09/09/24 Status: Completed Repeat number: 1 pravastatin 40 mg oral tablet 1 tablet = 40 mg, By Mouth, Daily, # 30 tablet, 0 Refills, Maintenance, 09/08/24 8:10:00 AM EDT, Tablet, Partial fill upon patient request if the prescription is for a schedule II opioid drug. Start Date: 09/08/24 Status: Ordered Quantity: 30.0 Unit: tablet Repeat number: 1 Social History Social History Type Response Smoking Status Never (less than 100 in lifetime) entered on: 09/08/24 Sex Sex Representation Male (finding) Note * Event Display: Hemodynamic Procedure Report Authored Date: [id number] * Ilya Lamar RN: PERFORM Event Display: Discharge/Transfer Note Hospital Authored Date: [id number] Nursing Discharge Note Entered On: 09/09/2024 16:26 EDT Performed On: 09/09/2024 16:26 EDT by Ilya Lamar RN Nursing Discharge Note 2 Discharge Time : 09/09/2024 16:26 EDT Discharge Level of Care at Discharge : Home/Intermediate/Foster Care Patient Left Unit Via : Ambulatory Patient Accompanied Off Unit with : Significant other DC Instructions Provided & Signed by Pt : Yes Patient Understands D/C Instructions : Yes Patient Instructions Discharge Signed : Yes Did Pt have Specialty Bed or Wound Vac : No Ilya Lamar RN - 09/09/2024 16:26 EDT * Marsha Brito MD: PERFORM Event Display: Discharge/Transfer Note Hospital Authored Date: [id number] Patient: ??TOMER, IRIS ? Age:??73 Years?Sex:??Male?:??1950?? Patient Information Discharge Location: Primary Care Physician: Ignacio Resendez MD Admit Date/Time: 09/08/2024 18:17 Discharge Disposition Discharge Disposition: Home: No Services Discharge Diagnosis Coronary artery disease (I25.10) HTN (hypertension) (I10) HLD (hyperlipidemia) (E78.5) PMR (polymyalgia rheumatica) (M35.3) PVC (premature ventricular contraction) (I49.3) _ Discharge Medications Aspirin (aspirin 81 mg oral delayed release tablet)??81 Milligram By Mouth Daily Metoprolol (metoprolol 25 mg oral tablet)??25 Milligram By Mouth 2 times a day Pravastatin (pravastatin 40 mg oral tablet)??1 tab(s) 40 Milligram By Mouth Daily tocilizumab (Actemra)??gets infusion as an outpatient every 4 weeks ? Medications Started Aspirin (aspirin 81 mg oral delayed release tablet)??81 Milligram By Mouth Daily Metoprolol (metoprolol 25 mg oral tablet)??25 Milligram By Mouth 2 times a day Medications Discontinued None Doses Changed None PCP Follow-Up/Heads-Up ???Admitted for chest pain underwent cardiac catheterization, no obstructive coronary artery disease. ???Noted to have PVCs, will have outpatient Holter monitor, and started on metoprolol Hospital Course Iris is a 73 y/o M w/ a pmh of HTN, HLD, PMR who presented to the ED 09/08 for chest pressure on exertion and was admitted for concern of NSTEMI given troponin elevation. He was given heparin gtt, aspirin, metoprolol, and pravastatin. Iris is comfortable this morning. Diagnostic catheterization performed by [facility] Dr. Chacon - showed no significant coronary artery disease. Echo was largely unremarkable but abnormal septal motion consistent with conduction delay was noted. Etiology of symptoms unclear. Iris should follow up with cardiology and PCP. ?? Coronary Artery Disease (I25.10) HLD (hyperlipidemia) (E78.5) ??Initial presentation: chest pressure on exertion w/ diaphoresis, nausea, and bilateral arm pain. Chest pain relieved by nitroglycerin. ??EKG: no evidence of ST elevation or depression. Troponin: peaked at 36, trending down ??Risk Factors: Hypertension, hyperlipidemia, polymyalgia rheumatica ??Diagnostic cath- showed no significant coronary artery disease. Echo was largely unremarkable ? Recommendations: - Aspirin 81 mg - Continue pravastatin 20 mg daily - Consider switching to Atorvastatin 40 mg to optimize as an outpatient ?? PVC (Premature Ventricular Contraction) (I49.3) Status: Bigeminy PVC noted on Telemetry ?? Recommendations: - Follow up w/ cardiology, outpatient Holter monitoring being set up by them - Metoprolol 25mg BID? HTN (hypertension) (I10):??Stable BP. PMR (polymyalgia rheumatica) (M35.3):??Continue Tocilizumab infusion every 4 weeks ? Objective Vital Signs?? Temperature: 97.2 DegF (09/09/24 13:18:00) Temperature Route: Temporal (09/09/24 13:18:00) Pulse Rate: 64 bpm (09/09/24 13:18:00) Respiratory Rate: 18 br/min (09/09/24 13:18:00) Systolic Blood Pressure: 117 mm Hg (09/09/24 13:18:00) Diastolic Blood Pressure: 69 mm Hg (09/09/24 13:18:00) Blood pressure sites: Arm, left (09/09/24 13:18:00) Mean Arterial Pressure: 85 mm Hg (09/09/24 13:18:00) Pulse Pressure: 48 mm Hg (09/09/24 13:18:00) Oxygen Saturation: 98 % (09/09/24 13:18:00) Mode of Delivery (Oxygen): Room air (09/09/24 13:18:00) Early Warning Score: 2 (09/09/24 13:18:43) ? Intake/Output? 09/08 18:17 09/09 07:00 09/08 07:00 09/07 07:00 09/06 07:00 ?? 09/09 15:19 07/03 15:19 09/09 06:59 09/08 06:59 09/07 06:59 Intake ?112.9 ?0 ?112.9 ?0 ?0 Output ?200 ?0 ?200 ?0 ?0 Net Total ?-87.1 ?0 ?-87.1 ?0 ?0 ? Urine Count ?1 ?0 ?1 ?0 ?0 ? . Physical Exam General:??Alert, NAD Mental Status:??Oriented to person, time and place. Normal affect HEENT:??Normocephalic. Neck supple. Full ROM. Respiratory:??Normal work of breathing. CTAB. No wheezing, rales or rhonchi. Cardiovascular: RRR, normal S1 and S2. No murmur. No lower extremity edema. No JVD. Gastrointestinal:??Normal bowel sounds. Abdomen soft, non-tender, non-distended. No masses Neurologic: Moves all extremities spontaneously?? Skin:??No rashes. Extremities:??No gross deformities. Normal range of motion Pending Results No Pending Results Patient Education Titles WebMD Ignite Patient Education - Metoprolol?? Web[employer] Patient Education - Discharge Instructions for Cardiac Catheterization?? Follow-Up Appointments Added Follow Up ?Time Frame ?Comments [facility]?For holter??monitor. They will call you. if not call [phone] Ignacio Resendez MD?1-2 weeks Patient Instructions You were admitted to the hospital for chest pain.?? You underwent a cardiac catheterization which showed the blood vessels supplying your heart were open and you did not require any stents.?? Please do not lift anything heavier than a gallon of milk with your right hand for about 1 week.?? Please monitor the site for bleeding or signs of infection (redness, warmth). You were also noted to have PVCs and will have a Holter monitor set up by cardiology outside the hospital.?? For this you were started on medication called metoprolol. ?? New medications: Aspirin: 81 mg, By Mouth, Daily Metoprolol: 25 mg, By Mouth, 2 times a day ?? If you have any chest pain, shortness of breath, abdominal pain, nausea, weakness, or symptoms thatare concerning to you please seek care at the nearest emergency department or call your PCP. Post Discharge Care Activity: ??Ambulate with assistance 3 times a day unless otherwise specified ?? Discharge ?09/09/24 15:17:00 EDT ?Order Comment:?? Discharge Prescriptions ?ePrescribed, 09/09/24 15:17:00 EDT ?Order Comment:?? Home Health Face to Face ^HomeHealthFTF Results Discharge Labs BLOOD COUNT & DIFF WBC 5.2 k/mm3 ()?? 09/09/2024 01:13 RBC 4.72 m/mm3 ()?? 09/09/2024 01:13 Hgb 15.0 Gm/dL ()?? 09/09/2024 01:13 Hct 43.1 % ()?? 09/09/2024 01:13 MCV 91.3 femtoliters ()?? 09/09/2024 01:13 MCH 31.8 pg ()?? 09/09/2024 01:13 MCHC 34.8 Gm/dL ()?? 09/09/2024 01:13 Platelet Count 195 k/mm3 ()?? 09/09/2024 01:13 RDW-SD 40.0 femtoliters ()?? 09/09/2024 01:13 MPV 10.4 femtoliters ()?? 09/09/2024 01:13 Nucleated RBC (Automated) 0.0 #/100 WBC'S ()?? 09/09/2024 01:13 Abs. NRBC 0.0 k/mm3 ()?? 09/09/2024 01:13 ?? CARDIAC High Sensitivity Troponin (HSTnT) 11 ng/L ()?? 09/09/2024 01:13 ? CHEM GENERAL Sodium 141 mmol/L ()?? 09/09/2024 01:13 Potassium 4.8 mmol/L ()?? 09/09/2024 01:13 Chloride 107 mmol/L ()?? 09/09/2024 01:13 Bicarbonate Level 23 mmol/L ()?? 09/09/2024 01:13 Anion Gap 11 mmol/L ()?? 09/09/2024 01:13 Glucose Level 100 mg/dL (High)?? 09/09/2024 01:13 Hemoglobin A1C (Monitoring) 5.6 % ()?? 09/09/2024 01:13 BUN 23 mg/dL ()?? 09/09/2024 01:13 Creatinine-Blood 0.99 mg/dL ()?? 09/09/2024 01:13 Estimated GFR Creatinine 81 ML/MIN/1.73 M2 ()?? 09/09/2024 01:13 Calcium 9.4 mg/dL ()?? 09/09/2024 01:13 Protein, Total 6.0 Gm/dL (Low)?? 09/09/2024 01:13 Albumin 3.9 Gm/dL ()?? 09/09/2024 01:13 AG Ratio 1.9 ()?? 09/09/2024 01:13 Alkaline Phosphatase 64 units/L ()?? 09/09/2024 01:13 AST (SGOT) 27 units/L ()?? 09/09/2024 01:13 ALT (SGPT) 20 units/L ()?? 09/09/2024 01:13 Bilirubin, Total 0.7 mg/dL ()?? 09/09/2024 01:13 ?? COAG APTT 77.7 seconds (High)?? 09/09/2024 08:29 ? ENDOCRINE/TUMOR MARKER TSH 2.68 uIU/mL ()?? 09/09/2024 01:13 ? LIPID STUDIES Cholesterol 166 mg/dL ()?? 09/09/2024 01:13 Triglycerides 79 mg/dL ()?? 09/09/2024 01:13 HDL Cholesterol 65 mg/dL ()?? 09/09/2024 01:13 LDL Cholesterol 85 mg/dL ()?? 09/09/2024 01:13 Non HDL Cholesterol 101 mg/dL ()?? 09/09/2024 01:13 ? URINE OTHER Est Creatinine Clearance 71.54 mL/min ()?? 09/09/2024 02:31 ? Patient discussed with attending Dr. Crawford ?? Marsha Brito MD PGY1 Internal??Medicine/Pediatrics Available via [employer] or Pager #[phone] 25??minutes spent on discharge * Jeane SMITH, Mahnaz Lizama: PERFORM Event Display: Patient Education/Instruction Authored Date: [id number] Inpatient Adult Discharge Instructions. [place] [id number] Name: IRIS JEFF : 1950?? Visit: 09/08/2024 18:17?? Current Date: 09/09/2024 16:02 ?? Account: [id number]?? Inpatient Adult Discharge Instructions We would like to thank you for allowing us to assist you with your healthcare needs. The following includes patient education materials and information regarding your injury/illness. Our entire staffstrives to provide an excellent experience for our patients and their families. PLEASE ENSURE YOU FOLLOW-UP PER THE INSTRUCTIONS BELOW! ?? YOUR OPINION IS IMPORTANT TO US! Please complete the survey you may receive by mail or email. Your feedback will be used to make improvements to the healthcare experiences of our patients and their families. Surveys are administered by [employer] ?? If further treatment with your primary care physician or another doctor is recommended, it is important for you to keep the appointment. Call your primary care physician or return to the Emergency Department immediately if your condition worsens, fails to improve, or new symptoms develop. If you need to find a doctor, you can call [facility] for a referral at [phone] or toll free at [phone] or log in to [email or web address].. ?? [facility], in keeping with [facility] guidance, no longer requires face masks for staff, patientsor visitors in most situations. Similiar to time spent indoors at other locations, there is the chance that you were exposed to repiratory viruses during your time with us (such as flu or COVID-19). If you develop symptoms concerning for a viral respiratory infection, please seek testing (and treatment if indicated) from your medical provider or home test kit. ?? You can view and manage your care through the patient portal or by using a health care michel of your choosing. [employer] is a website that allows you to securely view your medical information including your hospital discharge summary, office visit summaries, medications and follow-up visits. You can also request appointments, renew medications, and request access to your medical information using a health care michel of your choosing, or just ask a question. You are entitled to know the individuals who participated in your treatment. This information is available within your medical record and will be provided upon your request. You can enroll at [email or web address] or register d uring your next office visit. You have been discharged from [facility], Patient Care Unit: M7??. If you have any questions regarding these instructions, including results of studies pending, afteryou leave, please call us and we will be happy to assist you 30/09. [facility] Your Care Team Attending Physician Jay Crawford MD?? Consulting Providers Jay Crawford MD?? Discharging Providers Marsha Brito MD Your Diagnosis NSTEMI (non-ST elevated myocardial infarction) HTN (hypertension) HLD (hyperlipidemia) Coronary artery disease PMR (polymyalgia rheumatica) PVC (premature ventricular contraction) Tests Performed Below is a partial list of the tests performed during your hospitalization. You may have had other tests and procedures not included in this list. Please discuss all test results with your provider. CBC Comprehensive Metabolic Panel HEMOGLOBIN A1C Lipid Panel PTT Troponin T, High Sensitivity TSH CBC?? Comprehensive Metabolic Panel?? Hemoglobin A1C (Monitoring) (HEMOGLOBIN A1C)?? High??Sensitivity??Troponin T (Troponin T, High Sensitivity)?? Lipid Panel?? PTT?? TSH?? Primary Care Provider Ignacio Resendez MD? Advance Directive Health Care Proxy on File Yes - Health Care Proxy Patient has a Designated Caregiver: Yes Discharge Vitals Temperature: 97.2 DegF Height: 180 cm Pulse Rate: 64 bpm Weight: 74.2 kg Respiratory Rate: 18 br/min Body Mass Index: 22.78 kg/m2 Systolic Blood Pressure: 117 mm Hg Body surface area: 1.92 Diastolic Blood Pressure: 69 mm Hg ?? Oxygen Saturation: 98 % ?? Studies Pending All studies ordered during this hospital stay have been completed unless listed below. Please discuss all pending results with your provider listed above in these instructions. ?? No incomplete studies found?? What to do next Instructions From Your Doctor You were admitted to the hospital for chest pain.?? You underwent a cardiac catheterization which showed the blood vessels supplying your heart were open and you did not require any stents.?? Please do not lift anything heavier than a gallon of milk with your right hand for about 1 week.?? Please monitor the site for bleeding or signs of infection (redness, warmth). You were also noted to have PVCs and will have a Holter monitor set up by cardiology outside the hospital.?? For this you were started on medication called metoprolol. ?? New medications: Aspirin: 81 mg, By Mouth, Daily Metoprolol: 25 mg, By Mouth, 2 times a day ?? If you have any chest pain, shortness of breath, abdominal pain, nausea, weakness, or symptoms thatare concerning to you please seek care at the nearest emergency department or call your PCP. ?? Orders??:Ambulate with assistance ??3 times a day ??unless otherwise specified? 09/09/24 15:17:00 EDT?? Prescriptions??, ??09/09/24 15:17:00 EDT?? You Need to Schedule the Following Appointments Follow Up with??Ignacio Resendez MD When:??Within 1 week: call to discuss follow up visit Why: 1-2 weeks Where: [address] [facility] [employer] [facility] [place]- Follow Up with??[facility] When:??Within Within two weeks Why: For holter??monitor. They will call you. if not call [phone] Discharge Medications IRIS JEFF :1950 Visit Date:09/08/2024 Medications: Please continue your medications until treatment is completed or stopped by your provider. Medications not listed below should be discontinued. Discuss any questions related to medications with your provider. What How Much When Instructions Next Dose New Aspirin (aspirin 81 mg oral delayed release tablet) 81 Milligram Oral Daily Pickup at [place] [address] In the AM New Metoprolol (metoprolol 25 mg oral tablet) 25 Milligram Oral Twice a day Pickup at [place] [address] Bedtime tonight Unchanged Pravastatin (pravastatin 40 mg oral tablet) 1 tab(s) Oral Daily Bedtime tonight Unchanged tocilizumab (Actemra) gets infusion as an outpatient every 4 weeks ?? Pharmacy Information [facility] 3: [address] [place] [address] [phone] Prescription Given During Visit Aspirin (aspirin 81 mg oral delayed release tablet) - 81 mg, By Mouth, Daily, # 30 tablet, 0 Refills, [facility] [address], [address] [place] [phone]?? Metoprolol (metoprolol 25 mg oral tablet) - 25 mg, By Mouth, 2 times a day, # 60 tablet, 0 Refills,[facility], [address] [place] [phone]?? Laboratory Results Below is a partial list of the most recent Laboratory test results done prior to this discharge. You may have had other tests and procedures not included in this list. Please discuss all test resultswith your provider. Est Creatinine Clearance - 71.54 mL/min (09/09/2024) CBC (09/09/2024) ???WBC - 5.2 k/mm3???RBC - 4.72 m/mm3???Hgb - 15.0 Gm/dL???Hct - 43.1 %???MCV - 91.3 femtoliters???MCH - 31.8 pg???MCHC - 34.8 Gm/dL???Platelet Count - 195 k/mm3???RDW-SD - 40.0 femtoliters???MPV - 10.4 femtoliters???Nucleated RBC (Automated) - 0.0 #/100 WBC'S???Abs. NRBC - 0.0 k/mm3 Comprehensive Metabolic Panel (09/09/2024) ???Sodium - 141 mmol/L???Potassium - 4.8 mmol/L???Chloride - 107 mmol/L???Bicarbonate Level - 23 mmol/L???Anion Gap - 11 mmol/L???Glucose Level - 100 mg/dL???BUN - 23 mg/dL???Creatinine-Blood - 0.99 mg/dL???Estimated GFR Creatinine - 81 ML/MIN/1.73 M2???Calcium - 9.4 mg/dL???Protein, Total - 6.0 Gm/ dL???Albumin - 3.9 Gm/dL???AG Ratio - 1.9???Alkaline Phosphatase - 64 units/L???AST (SGOT) - 27 units/L???ALT (SGPT) - 20 units/L???Bilirubin, Total - 0.7 mg/dL HEMOGLOBIN A1C (09/09/2024) ???Hemoglobin A1C (Monitoring) - 5.6 % Lipid Panel (09/09/2024) ???Cholesterol - 166 mg/dL???Triglycerides - 79 mg/dL???HDL Cholesterol - 65 mg/dL???LDL Cholesterol - 85 mg/dL???Non HDL Cholesterol - 101 mg/dL PTT (09/09/2024) ???APTT - 77.7 seconds Troponin T, High Sensitivity (09/09/2024) ???High Sensitivity Troponin (HSTnT) - 11 ng/L TSH (09/09/2024) ???TSH - 2.68 uIU/mL You will be contacted within 72 hours with your results. Allergies (NKA means No Known Allergies) Vicodin oxyCODONE Problems No qualifying data available Education Materials Below is the list of Educational Leaflet Providered with your Discharge Instructions. Web[employer] Ignite Patient Education - Discharge instructions for high blood pressure (hypertension)?? Web[employer] Ignite Patient Education - Discharge Instructions: Eating a Low-Salt Diet?? [employer] Ignite Patient Education - Surgery Radial Cath Approach Discharge Instructions?? Web[employer] Ignite Patient Education - Taking Aspirin for Atherosclerosis?? Web[employer] Ignite Patient Education - Metoprolol?? Web[employer] Ignite Patient Education - Discharge Instructions for Cardiac Catheterization?? Valuables and Belongings I fully understand and agree that [facility] accepts no responsibility for all my personal property including clothing, toilet articles, radios, jewelry, dentures, hearing aids, rings, money, or any other property that is in my possession or is brought to me after admission. I understand certain valuables may be placed in a hospital safe for a short period of time. I understand that the hospital is not liable for loss or damage due to accident, fire, or other natural occurrence while said property is in the safe. I accept full responsibility for any personal property that I keep with me, and will not hold the hospital responsible in case of loss or disappearance. I acknowledge that i have been encouraged to send valuables and belongings home. ?? Date for Pt to Sign Valuables/Belongings: 09/08/24 18:37:00 ?? Other Discharge Information ? Pulmonary Rehab Status?? Pulmonary Rehab Discharge Status?? Respiratory Rate: 18 br/min ? Common Emergency Awareness Tips IS IT A STROKE? Act FAST and Check for these signs: FACE Does the face look uneven? ARM Does one arm drift down? SPEECH Does their speech sound strange? TIME Call at any sign of stroke ?? Heart Attack Signs Chest discomfort: Most heart attacks involve discomfort in the center of the chest and lasts more than a few minutes, or goes away and comes back. It can feel like uncomfortable pressure, squeezing, fullness or pain. Discomfort in upper body: Symptoms can include pain or discomfort in one or both arms, back, neck, jaw or stomach. Shortness of breath: With or without discomfort. Other signs: Breaking out in a cold sweat, nausea, or lightheaded. Remember, MINUTES DO MATTER. If you experience any of these heart attack warning signs, call to get immediate medical attention! ?? Smoking can increase your chances of developing chronic health problems and can cause harmful effects to other family members in your house. If you smoke, you are strongly encouraged to quit. Please call [facility] [employer] Link at [phone] or [phone]) or log in to [email or web address] for referrals to smoking cessation programs. ?? 860 Suicide & Crisis Lifeline is available 30/09 if you or someone you know needs to find a reason to keep living. By calling 824 you'll be connected to a skilled, trained counselor at a crisis center in your area. INPATIENT DISCHARGE INSTRUCTIONS SIGNATURE PAGE TOMERIRIS Ralph Location:[facility] Registration Date and Time:09/08/2024 18:17 EDT Primary Care Physician: Mal RAMIREZ, Ignacio Serrano, Attending Physician: Jay Crawford MD, I IRIS JEFF, have received the above patient education materials/instructions and have verbalized understanding. If ambulance or transport services are being used I further acknowledge being givena choice of service. ?? If you need to contact me, please call me at this number: . Patient/Dental Hygienist Mobile Coordinator Name: Patient/Dental Hygienist Mobile Coordinator Signature: Relationship to Patient: Witness Name/Signature: Date: * Mahnaz Ching RN: PERFORM Event Display: Patient Education Leaflets Authored Date: [id number] Discharge instructions for high blood pressure (hypertension) ?? [address] Discharge instructions for high blood pressure (hypertension) You have been diagnosed with high blood pressure. This is known as hypertension. It means the forceof blood against your artery proctor is too strong. Your heart is working too hard to move blood. High blood pressure usually has no symptoms. But over time, it can cause serious health problems. High blood pressure raises your risk for these problems: ??? Heart attack ??? Stroke ??? Heart disease ??? Heart failure ??? Kidney disease ??? Vision loss With help from your healthcare provider, you can manage your blood pressure and protect your health. Blood pressure measurements are given as 2 numbers. Systolic blood pressure is the upper number. This is the pressure when the heart contracts or pumps. Diastolic blood pressure is the lower number. This is the pressure when the heart relaxes between beats. Blood pressure is grouped like this: ??? Normal blood pressure. Systolic is less than 120 and diastolic is less than 80 at rest. ??? Elevated blood pressure. Systolic is 120 to 129 and diastolic is less than 80 at rest. ??? Stage 1 highblood pressure. Systolic is 130 to 139 or diastolic is between 80 to 89 at rest. ??? Stage 2 high blood pressure. Systolic is 140 or higher or diastolic is 90 or higher at rest. Taking medicine ??? Learn to measure your own blood pressure. Keep a record of your results. Ask your healthcare provider which numbers mean you need medical care. ??? Take your blood pressure medicine exactly as directed. Don???t skip doses. Missing doses??can cause your blood pressure to get out of control. ??? Ask your healthcare provider what to do if you miss a dose. ??? Don't take medicinesthat contain heart stimulants. This includes epdz-sdd-oeaamgf medicines. Check for warnings about high blood pressure on the label. Ask the pharmacist before buying a medicine you haven't used before. ??? Check with your healthcare provider before taking a decongestant. This includes medicines with pseudoephedrine or phenylephrine on the label. Ask the pharmacist if you are not sure. These can make high blood pressure worse. ??? If you take medicine to have sex, talk to your healthcare provider. Taking these medicines with a type of blood pressure medicine called nitrates can be dangerous. Your blood pressure can drop too low. ?? Lifestyle changes ??? Keep a healthy weight. Get help to lose any extra pounds. Meeting with a dietitian can help you make diet changes to help with weight loss. ??? Cut back on salt. To do this: o Limit canned, dried, packaged, and fast foods. o Don???t add salt to your food at the table. o Seasonfoods with herbs instead of salt when you cook. o Ask for no added salt when you eat out. o Have nomore than??1,500 mg a??day of sodium. You can make a positive change by??cutting back to even 2,300mg of sodium a day. Read all food labels to see how much sodium they have.? Follow the DASH eating plan. DASH stands for Dietary Approaches to Stop Hypertension.??This plan advises a way to eat for healthy blood pressure. The diet includes vegetables, fruits, whole grains, and other healthy foods. ??? Begin an exercise program. Talk with your healthcare provider before you get started. Work up to at least 150 minutes of moderate- intensity physical activity each week. It doesn't have to be done all at once. You can do 30-minute sessions, 5 days a week. This can help lower blood pressure. Even simple activities can help blood pressure. These include walking or gardening. ??? If you smoke, work to stop. Enroll in a stop-smoking program. This will improve your chance of success. Ask yourhealthcare provider about programs and medicines to help you stop smoking. ??? Never take stimulants such as amphetamines or cocaine. These drugs can be deadly for a person with high blood pressure. ??? Work to lessen your stress. You can learn ways to manage stress. ??? Get enough quality sleep. Most adults need 7 to 9 hours of sleep per day. ??? Don't drink alcohol or limit how much you drink. This means no more than 1 drink a day for women and 2 drinks a day for men. ?? Follow-up care Make a follow-up appointment as directed. ?? When to call your healthcare provider Call your healthcare provider right away if you have any of these: ??? Moderate headache ??? Extreme drowsiness ??? Pulsating or rushing sound in your ears ??? Unexplained??nosebleed ??? Blood pressure measured at home that is 180/120 or higher without any other symptoms of target organ damage, or as directed by your healthcare provider. ?? Call 911 Call 911 right away if you have any of these symptoms: ??? Blood pressure measured at home that is higher than 180/120 and you are having other symptoms of target organ damage, such as those listed below, or as directed by your healthcare provider. ??? Chest pain or shortness of breath ??? Severe headache ??? Severe back pain ??? Weakness, tingling, ornumbness of your face, arms, or legs (especially on 1 side of the body) ??? Change in vision ??? Confusion, trouble speaking, or trouble understanding speech ??? Dizziness or fainting ?? Last Reviewed Date: 2023 00:00:00 ?? [employer]. All rights reserved. This information is not intended as a substitute for professional medical care. Always follow your healthcare professional's instructions. ?? * Jeane SMITH, Mahnaz Lizama: PERFORM Event Display: Patient Education Leaflets Authored Date: [id number] Discharge Instructions: Eating a Low-Salt Diet ?? 07138 Discharge Instructions: Eating a Low-Salt Diet Your healthcare provider has prescribed a low-salt diet for you. Most people with heart problems need to eat less salt, which is full of sodium. Too much sodium is linked to high blood pressure, which??is linked to a greater risk of heart disease, stroke, blindness, and kidney problems. Home care Learn ways to cut back on salt (sodium): ??? Eat fewer frozen, canned, dried, packaged, and fast foods. These often contain high amounts of sodium. ??? Season foods with herbs and spices instead of salt when you cook. ??? Season with flavorings, such as vinegar, pepper, [place]. croix, lemon, fenrie, garlic, and onion. ??? Don???t add salt to your food at the table. ??? Sprinkle salt-free herbal blends on meats and vegetables. Learn to read food labels carefully: ??? Look for the total amount of sodium per serving. ??? Look for foods labeled low sodium, reducedsodium, or no added salt. ??? Beware: Salt goes by many names. Cut down on foods with these words (all forms of salt) listed as ingredients: o Salt o Sodium o Soy sauce o Baking soda o Baking powder o MSG (monosodium glutamate) o Monosodium o Na (the chemical symbol for sodium) Other ideas: ??? Use more fresh food. Buy more fruits and vegetables. ??? Select lean meats, fish, and poultry. ??? Find a cookbook with low-salt recipes. You???ll find ideas for tasty meals that arehealthy for your heart. ??? Buy salt-free or low-sodium condiments such as ketchup, mustard, salad dressings, and other sauces. ??? When eating out, ask questions about the menu. Tell the waiter/waitress formal you're on a low-salt diet. o If you order fish, chicken, beef, or pork, ask to have it broiled, baked, poached, or grilled without salt, butter, or breading. o Choose plain steamed rice, boiled noodles, and baked or boiled potatoes. Top potatoes with chives and a little sour cream instead of salt and butter. ??? Don't take antacids that are high in salt. Check the label before you buy. ?? Follow-up Make a follow-up appointment with your healthcare provider, or as advised. Your provider may refer you to a dietitian.? Last Reviewed Date: 2022 00:00:00 ?? [id number] [employer]. All rights reserved. This information is not intended as a substitute for professional medical care. Always follow your healthcare professional's instructions. ?? * Jeane SMITH, Mahnaz Lizama: PERFORM Event Display: Patient Education Leaflets Authored Date: [id number] Surgery Radial Cath Approach Discharge Instructions ?? 278 Radial Cath Approach Discharge Instructions ?? Activity Take it easy the rest of the day. Limit your activity on the affected side.?? Act as if your arm is broken for 24 hours. No lifting with affected arm for 24 hours. No pushing or pulling with the affected arm. Do not reach or lift with the affected arm. Do not place excessive pressure on the wrist. ?? Precautions Due to intravenous sedation: It is recommended that someone stay with you for the first night after your procedure. Do not drive or operate hazardous machinery for 24 hours. Do not make legal decisions for 24 hours. Avoid alcohol for 24 hours. Unless directed otherwise, keep yourself hydrated. ?? Dressing/Incision Care You may remove the dressing 24 hours after your procedure. Replace with band aid for an additional 24 hours. You may shower and cleanse the site with soap & water then pat dry. Avoid submersion of site in water x 5 days. Cover the with a clean band aid daily until site is healed. If the band aid becomes soiled, replacewith a clean new one. Do not apply any ointments, lotions, gels or powders to the puncture site. ?? When to contact your doctor If any of the following signs of infection occur: Fever greater than 100 degrees F Increased pain Drainage, redness or warmth at puncture site Tingling of the fingers and hand that last longer than 3 days Slight bubble of blood or bleeding from site: apply manual pressure and notify your doctor ?? Emergency situations: Bleeding from the site that will not stop: apply manual pressure and notify your doctor Profuse bleeding streaming from the puncture site: Apply manual pressure and notify your doctor immediately If your hand becomes bluish, cold to the touch, or painful, notify your doctor immediately or go toEmergency Department. For these emergent situations: If unable to contact your physician, call 911. ?? Admission evaluation note * Tony MD, Koko: PERFORM Event Display: Admission Note Authored Date: [id number] Patient: ??IRIS JEFF ? Age:??73 Years?Sex:??Male?:??1950?? Chief Complaint/Reason for Consultation Chest pain History of Present Illness The patient is a 73 years old female with past medical history of hypertension, polymyalgia rheumatica presented to ER with a chief complaint of chest pain. ?? The patient reported that he was in his usual state of health and was doing yard work??when he developed chest pain. ??The patient said the chest pain??in substernal area as sudden in onset, continuous, waxing and having, pressure and dull in nature,??8 out of 10, radiates to bilateral arms, with no aggravating factors, alleviated with nitroglycerin , associated with dizziness,??nausea??and diaphoresis. Review of Systems All pertinent negative and positives are noted in HPI. ??All other systems were reviewed and are negative Objective Measurements?? Height: 180 cm (09/08/24) Weight: 73.8 kg (09/08/24) Dry Weight: 77 kg (09/08/24) Body Mass Index: 22.78 kg/m2 (09/08/24) ? Vital Signs?? Temperature: 98.6 DegF (09/08/24 19:30:00) Temperature Route: Oral (09/08/24 19:30:00) Pulse Rate: 70 bpm (09/08/24 19:30:00) Respiratory Rate: 18 br/min (09/08/24 19:30:00) Systolic Blood Pressure:??142 mm Hg??High (09/08/24 19:30:00) Diastolic Blood Pressure: 74 mm Hg (09/08/24 19:30:00) Blood pressure sites: Arm, right (09/08/24 19:30:00) Mean Arterial Pressure: 97 mm Hg (09/08/24 19:30:00) Pulse Pressure: 68 mm Hg (09/08/24 19:30:00) Oxygen Saturation: 100 % (09/08/24 19:30:00) Mode of Delivery (Oxygen): Room air (09/08/24 19:30:00) Early Warning Score: 0 (09/08/24 19:31:29) ? Physical Exam Constitutional: Alert, in no acute distress. Head: Normocephalic. ?? Eyes: Pupils are equal, round and reactive to light. Extraocular muscles intact. No pallor or scleral icterus ?? Ear, Nose and Throat: mucous membranes moist. Ears and nose - no obvious deformities. Trachea midline. ?? Neck: Supple, Full range of motion.No JVD or bruits. Respiratory:??Clear to auscultation. No wheezing or rhonchi.??No use of accessory muscles. No tactile fremitus.?? Cardiovascular:??PMI not visible. S1 S2 regular. No murmurs, rubs or gallops. Gastrointestinal:??Abdomen soft, non-tender, non-distended. Normal bowel sounds. No pulsatile mass.No hepatosplenomegaly. Genitourinary:??No costovertebral angle tenderness. Extremities: No lower extremity pitting edema. No cyanosis or clubbing. Neurologic:??AAOx3, Cranial nerves II-XII grossly intact. Speech normal, no facial droop. No focal neurological deficits. Moves all extremities spontaneously. Sensation intact bilaterally.??Flexor plantar response Skin:??No rash.?? Musculoskeletal:??No gross deformities on inspection. Heme/Lymphatics:??Palpation of neck reveals no swelling or tenderness of neck nodes.?? Psychiatric: Normal mood and affect. Assessment/Plan Diagnoses 1. ??NSTEMI (non-ST elevated myocardial infarction) ??(I21.4) 2. ??HTN (hypertension) ??(I10) 3. ??HLD (hyperlipidemia) ??(E78.5) ?? Assessment:??The patient is a 73 years old male who is admitted NSTEMI ?? NSTEMI (non-ST elevated myocardial infarction) (I21.4):??Patient presented to ER with a chief complaint of chest pain that started while he was doing drywall, relieved with nitroglycerin On physical exam, no murmur, no lower lower extremity swelling Troponin 8-->36 EKG was done that did not show any evidence of ST elevation or depression Ordered echocardiogram Started patient on aspirin, heparin drip, low-dose metoprolol, continue home medicine pravastatin Cardiology consulted, will follow recommendations ?? HTN (hypertension) (I10):??Started patient on low-dose metoprolol 25 mg twice a day with holding parameters ?? HLD (hyperlipidemia) (E78.5):??Resume home medication pravastatin ?? VTE Prophylaxis:??Heparin drip ?VTE Prophylaxis Assessment:??Excluded from VTE prophylaxis measure ?? Discharge Planning:??Pending clinical course ?? Ongoing Medical Necessity:??NSTEMI ?? Code Status:??Full code ?Order Code Status:??Code Status Ordered ? Date of service: September 08, 2024 Histories Allergies Allergies ?(Active and Proposed Allergies Only) oxyCODONE? (Severity: Unknown severity, Onset: Unknown) Vicodin? (Severity: Unknown severity, Onset: Unknown) ? Past Medical History/Problem List No problems documented. ? Past Surgical History No surgery history documented. ? Social History Alcohol Details:??Use: Current. ??Frequency: 1-2 times per month. ??Type: Beer. Substance Abuse Details:??Use: Never. Tobacco Details:??Use: Never (less than 100 in lifetime). Electronic Cigarette/Vaping Details:??Electronic Cigarette Use: Never. ? Family History No Family History documented. ? Medications Home Medications Pravastatin (pravastatin 40 mg oral tablet)??1 tab(s) 40 Milligram By Mouth Daily tocilizumab (Actemra)??gets infusion as an outpatient every 4 weeks ? Results Recent Labs BLOOD COUNT & DIFF WBC 3.0 k/mm3 (Low)?? 09/08/2024 08:11 RBC 4.56 m/mm3 (Low)?? 09/08/2024 08:11 Hgb 14.7 Gm/dL ()?? 09/08/2024 08:11 Hct 40.4 % (Low)?? 09/08/2024 08:11 MCV 88.6 femtoliters ()?? 09/08/2024 08:11 MCH 32.2 pg ()?? 09/08/2024 08:11 MCHC 36.4 Gm/dL ()?? 09/08/2024 08:11 Platelet Count 178 k/mm3 ()?? 09/08/2024 08:11 RDW-SD 37.4 femtoliters ()?? 09/08/2024 08:11 MPV 10.6 femtoliters ()?? 09/08/2024 08:11 Nucleated RBC (Automated) 0.0 #/100 WBC'S ()?? 09/08/2024 08:11 Abs. NRBC 0.0 k/mm3 ()?? 09/08/2024 08:11 Abs. Neut 1.0 k/mm3 (Low)?? 09/08/2024 08:11 Abs. Lymph 1.5 k/mm3 ()?? 09/08/2024 08:11 Abs. Highlands 0.4 k/mm3 ()?? 09/08/2024 08:11 Abs. Eo 0.1 k/mm3 ()?? 09/08/2024 08:11 Abs. Baso 0.0 k/mm3 ()?? 09/08/2024 08:11 Neut % 33.9 % (Low)?? 09/08/2024 08:11 Lymph % 49.3 % (High)?? 09/08/2024 08:11 Highlands % 12.2 % (High)?? 09/08/2024 08:11 Eos % 3.6 % ()?? 09/08/2024 08:11 Baso % 1.0 % ()?? 09/08/2024 08:11 Imm Gran 0.0 % ()?? 09/08/2024 08:11 Abs. Imm Gran 0.0 k/mm3 ()?? 09/08/2024 08:11 ?? CARDIAC Nt-Probnp 50 pg/mL ()?? 09/08/2024 08:11 High Sensitivity Troponin (HSTnT) 36 ng/L (High)?? 09/08/2024 10:55 ?? CHEM GENERAL Sodium 141 mmol/L ()?? 09/08/2024 08:11 Potassium 4.6 mmol/L ()?? 09/08/2024 08:11 Chloride 106 mmol/L ()?? 09/08/2024 08:11 Bicarbonate Level 23 mmol/L ()?? 09/08/2024 08:11 Anion Gap 12 mmol/L ()?? 09/08/2024 08:11 Glucose Level 141 mg/dL (High)?? 09/08/2024 08:11 BUN 23 mg/dL ()?? 09/08/2024 08:11 Creatinine-Blood 0.83 mg/dL ()?? 09/08/2024 08:11 Estimated GFR Creatinine 93 ML/MIN/1.73 M2 ()?? 09/08/2024 08:11 Calcium 9.4 mg/dL ()?? 09/08/2024 08:11 ?? COAG INR 1.1 ()?? 09/08/2024 08:11 Protime (PT) 11.3 seconds ()?? 09/08/2024 08:11 APTT 24.5 seconds ()?? 09/08/2024 11:06 ?? HEME OTHER Hold Blue Top SPECIMEN DISCARDED AFTER 4 HOURS. ()?? 09/08/2024 08:11 ?? MISC. CHEMISTRY Hold Gel Top SPECIMEN DISCARDED AFTER 1 WEEK ()?? 09/08/2024 08:11 ?? URINE OTHER Est Creatinine Clearance 85.33 mL/min ()?? 09/08/2024 09:05 ? Coagulation Profile?? No qualifying data available. ? US Heart * Event Display: Echocardiogram - Complete Authored Date: [id number] Transthoracic Echocardiography Report (TTE) Patient Demographics Patient Name IRIS JEFF Date of Study 09/09/2024 Corporate Gender Male Facility Race .[id number] Ethnicity Date of 1950 Height: 70.87 inches Age 73 year(s) Weight: 160.94 pounds Accession Number [id number] BSA: 1.92 m2 Room Number [id number] BMI: 22.53 kg/m2 Referring Tony Sutherland MD Interpreting Fercho Muhammad Physician Physician Crotch Breaker [facility] Fellow Jeffery Rios MD Indications NSTEMI. Clinical History HTN HLD Study Data Type of Study TTE procedure:Echo Complete-(Doppler, Colorflow) with Contrast. Procedure Information:Definity was administered by Winery Worker . Study Date09/09/2024 Start Time: 09:39 AM Study Location: [facility] [place] Adult Echo Study Status: Bedside Patient Status: Routine Technical Quality: Fair due to poor acoustical window. Blood Pressure:145/75 mmHg EKG: Within normal limits HR: 60 bpm Contrast Medium: Definity. Amount - 2 ml 2D Measurements LV Diastolic Dimension: 4.5 cm LV Systolic Dimension: 3.4 cm LV Septum Diastolic: 0.7 cm LV PW Diastolic: 1 cm AO Root Dimension: 2.6 cm LA Dimension: 2.5 cm LVOT Stroke Volume: 34.62 ml LVOT: 1.5 cm Stroke Volume Index18.03 ml/m2 Cardiac Index:1.08 l/min/m2 Doppler Measurements AV Peak Velocity: 128 cm/s MV Peak E-Wave: 60.9 cm/s AV Peak Gradient: 6.55 mmHg MV Peak A-Wave: 73.9 cm/s AV Mean Gradient: 4 mmHg MV E/A Ratio: 0.82 AV VTI:29.3 cm LVOT Peak Velocity: 87.8 cm/s MV Mean Gradient: 1 mmHg LVOT VTI19.6 cm MV Area (continuity): 1.43 cm2 AV Area (Continuity):1.18 cm2 MV Deceleration Time: 278 msec TR Velocity:201 cm/s TR Gradient:16.16 mmHg E' Septal Velocity: 7.07 cm/s E' Lateral Velocity: 12.2 cm/s E/Med E':[id number] E/Lat E':[id number] Cardiac Anatomy Left Ventricle/Interventricular Septum The left ventricular size is normal. Left ventricular wall thickness is normal. Normal LV systolic function. Ejection fraction is 62% by Biplane Cedillo method. There are no regional wall motion abnormalities. There is abnormal septal motion consistent with conduction delay. Normal diastolic function. There is no evidence of left ventricular thrombus. Left Atrium/Interatrial Septum The left atrium is normal in size. Aortic Valve The aortic valve is probably trileaflet. There is no aortic stenosis. There is no aortic regurgitation. Mitral Valve The mitral valve appears normal . There is no significant mitral regurgitation. Aorta The aortic root is normal in size. Right Ventricle The right ventricle is normal in size and function. Right Atrium The right atrium is normal in size. Pulmonic Valve The pulmonic valve is poorly visualized. Tricuspid Valve The tricuspid valve is grossly normal. There is no significant tricuspid valve regurgitation. Pumonary Artery An accurate pulmonary artery pressure could not be obtained. Venous Structures The inferior vena cava is poorly visualized. Pericardium/Extracardiac There is no pericardial effusion. Summary The left ventricular size is normal. Left ventricular wall thickness is normal. Normal LV systolic function. Ejection fraction is 62% by Biplane Cedillo method. There are no regional wall motion abnormalities. There is abnormal septal motion consistent with conduction delay. Normal diastolic function. There is no evidence of left ventricular thrombus. The aortic valve is probably trileaflet. There is no aortic stenosis. There is no aortic regurgitation. The right ventricle is normal in size and function. There is no pericardial effusion. Comparison No prior study available for comparison. Signature * Event Display: Echocardiogram - Complete Authored Date: Cardiology * Event Display: Cardiac Rhythm Strips Authored Date: * Event Display: Cardiac Rhythm Strips Authored Date: * Event Display: Cardiac Rhythm Strips Authored Date: Hospital Progress note * Ilya Lamar RN: PERFORM, SIGN, VERIFY, MODIFY, SIGN Event Display: Progress Note Hospital Authored Date: [id number] Patient: IRIS JEFF [facility]: [id number] Age: 73 years Sex: Male : 1950 Associated Diagnoses: None Author: Brianda RN, Ilya Findings Nursing Data Vital Signs : VITAL SIGNS SECTION 09/09/2024 13:18 EDT Early Warning Score 2.00 09/09/2024 13:18 EDT Temperature 97.2 DegF Temperature Route Temporal Pulse Rate 64 bpm Respiratory Rate 18 br/min Systolic Blood Pressure 117 mm Hg Diastolic Blood Pressure 69 mm Hg Blood pressure sites Arm, left Mean Arterial Pressure 85 mm Hg Pulse Pressure 48 mm Hg Oxygen Saturation 98 % Mode of Delivery (Oxygen) Room air 09/09/2024 7:36 EDT Temperature 98.0 DegF Temperature Route Temporal Pulse Rate 62 bpm Respiratory Rate 18 br/min Systolic Blood Pressure 145 mm Hg H Diastolic Blood Pressure 75 mm Hg Blood pressure sites Arm, right Mean Arterial Pressure 98 mm Hg Pulse Pressure 70 mm Hg Oxygen Saturation 99 % Mode of Delivery (Oxygen) Room air . Narrative/Incidental 10:18 Patient on RA, stated no chest pain or SOB, NPO since midnight, taken to ballistics laboratory gunsmith procedure. 11:07 Per ballistics laboratory gunsmith RN, higinio coronary and to follow up with Cardiology outpatient, see ballistics laboratory gunsmith report. 14cc TR band site, not oozing, or brusing. Continous VS as per protocol. NPO order discontined 14:49 Once TR band removed, [facility] removed, Dr. Brito aware. Pending discharge. . Discharge Information Case Management Discharge Plan : Case Management Discharge Plan Data 09/08/2024 17:52 EDT Discharge Level of Care at Discharge Short-term Acute Inpatient * Iva Vasquez: PERFORM Daryl RAMIREZ, Marsha: MODIFY Event Display: Progress Note Hospital Authored Date: [id number] Patient: ??IRIS JEFF ? Age:??73 Years?Sex:??Male?:??1950?? Subjective No overnight events. ?? Iris is feeling comfortable this morning. He denies dizziness, vision changes, chest pain, chest pressure, vomiting??or bloating. ?? He notes occasional bilateral lower extremity edema. He mentions??a history of PVC during shoulder surgery last April and may have esophageal spasms but has not seen GI.? Review of Systems As per HPI.?? Objective Vital Signs?? Temperature: 98 DegF (09/09/24 07:36:00) Temperature Route: Temporal (09/09/24 07:36:00) Pulse Rate: 62 bpm (09/09/24 07:53:00) Respiratory Rate: 18 br/min (09/09/24 07:36:00) Systolic Blood Pressure:??145 mm Hg??High (09/09/24 07:53:00) Diastolic Blood Pressure: 75 mm Hg (09/09/24 07:53:00) Blood pressure sites: Arm, right (09/09/24 07:36:00) Mean Arterial Pressure: 98 mm Hg (09/09/24 07:36:00) Pulse Pressure: 70 mm Hg (09/09/24 07:36:00) Oxygen Saturation: 99 % (09/09/24 07:36:00) Mode of Delivery (Oxygen): Room air (09/09/24 07:36:00) Early Warning Score: 0 (09/09/24 07:53:40) ? Intake/Output? 09/08 18:17 09/09 07:00 0702 07:00 09/07 07:00 09/06 07:00 ?? 09/09 11:07 09/09 11:07 09/09 06:59 02 06:59 09/07 06:59 Intake ?112.9 ?0 ?112.9 ?0 ?0 Output ?200 ?0 ?200 ?0 ?0 Net Total ?-87.1 ?0 ?-87.1 ?0 ?0 ? Urine Count ?1 ?0 ?1 ?0 ?0 ? Physical Exam General:??Alert, NAD Mental Status:??Oriented to person, time and place. Normal affect HEENT:??Normocephalic. Neck supple. Full ROM. Respiratory:??Normal work of breathing. CTAB. No wheezing, rales or rhonchi. Cardiovascular: RRR, normal S1 and S2. No murmur. No lower extremity edema. No JVD. Gastrointestinal:??Normal bowel sounds. Abdomen soft, non-tender, non-distended. No masses Neurologic: Moves all extremities spontaneously?? Skin:??No rashes. Extremities:??No gross deformities. Normal range of motion Assessment/Plan Assessment:??Iris is a 73 y/o M w/ a pmh??of HLD, HTN, PMR who was admitted for chest pain concerning for NSTEMI. He is comfortable this morning, and scheduled for cath in the afternoon alongside further cardiac work-up.? NSTEMI (non-ST elevated myocardial infarction) (I21.4) HLD (hyperlipidemia) (E78.5) Initial presentation: chest pressure on exertion??w/ diaphoresis, nausea, and bilateral arm pain. Chest pain relieved by nitroglycerin.? EKG: no evidence of ST elevation or depression. Troponin: peaked at 36, trending down ?? Risk Factors: Hypertension, hyperlipidemia, polymyalgia rheumatica? Plan: -Heparin gtt?? -Aspirin 81mg daily. S/p ASA 325 mg -Metoprolol 25 mg daily?? -Stop Pravastatin 20mg daily - Start Atorvastatin??80 mg daily?? -Stop trending troponin?? -HbA1c. TFTs?? -SL NTG prn for pain -NPO pending cardiac cath -Echo pending?? 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 HTN (hypertension) (I10): ??Stable BP.? Plan: - Metoprolol 25 mg daily?? - Can consider starting ARIA/ARB?? - monitor BP? PMR (polymyalgia rheumatica) (M35.3):?? Stable on outpatient Tocilizumab??infusion every??4 weeks? Plan: - Continue outpatient??meds on??d/c? Quality Measures Diet: NPO, cardiac diet ordered?? Code Status: Full code?? DVT prophylaxis: Heparin gtt ?? Written with assistance by MS3??Iva Westbrook??Vasquez? I personally saw and physically examined the patient with the medical student. I agree with their assessment and plan as??detailed in this note which may include edits made above.? Patient discussed with attending Dr. Crawford ?? Marsha Brito MD PGY1 Internal??Medicine/Pediatrics Available via Blushr or Pager #[phone] * Alka Saez RN: PERFORM, SIGN, VERIFY, SIGN, MODIFY Event Display: Progress Note Hospital Authored Date: [id number] Patient: IRIS JEFF Age: 73 years Sex: Male : 1950 Associated Diagnoses: None Author: Alka Saez RN Findings Problem Related to Alteration in Cardiac Function (new) : Alteration in Cardiac Function/new 09/08/2024 21:00 EDT Alteration in Cardiac Status Related to Cardiac Procedure, Other: NSTEMI Goals & Outcomes, Cardiac Status Pt will resume/maintain adequate cardiac output, Pt will resume/maintain adequate hemodynamic status, Pt will resume/maintain adequate respiratory function, Pt will resume/maintain intact neuro function, Pt will maintain adequate GI/ function appropriate for pt, Pt will maintain adequate nutrition status, Pt/caregiver will state understanding of diagnosis, Pt/caregiver will state strategies to reduce risk factors Cardiac Interventions Implemented Assess/monitor cardiac status, Assess/monitor neuro status, Assess/monitor respiratory status, Assess for tolerance of IV infusions; verify rate & dose, Call/Report variances in ECG to provider, Document & Monitor O2 Sats; Administer O2 as ordered, Ensure adequate caloric intake, If no bowel movement in 3 days activate bowel regime, Monitor & document daily weight, Monitor anticoagulation values, Monitor ECG w/administration of antiarrhythmics (CO 13.420), Obtain 12 Lead ECG and CXR as ordered, Prep pt for treatments & procedures, Teach/encourage deep breath & cough exercises, Teach/encourage use of incentive spirometer, Team conversation regarding appropriate level of care, Use adjunctive therapies per Standards of Practice Goals/Interventions, Cardiac Yes Cardiac, Problem Start 09/09/2024 21:00 Reviewed Plan with, Cardiac Status Patient Patient Progression, Cardiac Status Patient progressing according to plan . Nursing Data Vital Signs : VITAL SIGNS SECTION 09/08/2024 19:30 EDT Temperature 98.6 DegF Temperature Route Oral Pulse Rate 70 bpm Respiratory Rate 18 br/min Systolic Blood Pressure 142 mm Hg H Diastolic Blood Pressure 74 mm Hg Blood pressure sites Arm, right Mean Arterial Pressure 97 mm Hg Pulse Pressure 68 mm Hg Oxygen Saturation 100 % Mode of Delivery (Oxygen) Room air . Narrative/Incidental Pt A&Ox4. Calm and cooperative. VSS on RA. Denied CP, SOB, palpitations and lightheadedness. Continued hep gtt running at 12 u/kg/hr. PTT due to be drawn at 0100. Echo ordered. NPO since 0000 forpossible cath. Normal sinus with PVC's on tele. Call alejandro in reach.. Discharge Information Case Management Discharge Plan : Case Management Discharge Plan Data 09/08/2024 17:52 EDT Discharge Level of Care at Discharge Short-term Acute Inpatient * Alka Saez RN: PERFORM Event Display: Progress Note Hospital Authored Date: PTT came back therapeutic at 63.9. Next PTT scheduled for 829. Consult note * Kaushal TOMLINSON, Karly Ulloa: PERFORM Event Display: Consultation Note Authored Date: [id number] Patient: ??IRIS JEFF ? Age:??73 Years?Sex:??Male?:??1950?? History of Present Illness Reason for consultation:??NSTEMI ?? Referring Provider: Dr. Crawford? Primary Grain Mixer:??none? 73-year-old gentleman with no known CAD, though cardiac risk factors of??diabetes, hyperlipidemia, PMR??and??PAD??including??ectatic??iliac arteries??based on??ultrasound 01/2024.?He presents to [facility] as a transfer from [facility] where he presented to the ER with concern for an episode of chest discomfort that occurred while doing yard work.?? He describes the chest discomfort to be a pressure in the center of his chest radiating out to both arms with associated diaphoresis and dizziness. ?? He tells me that he had referral to [facility] [place],??interestingly plan for today, for abnormal EKGnoted during shoulder surgery in April.?? In review of her outpatient records, it appears as though the patient had frequent PVCs??on his EKG. ?? He describes yesterday's event??as occurring??while he was working out in his yard. ??He states that all of a sudden he developed central chest discomfort radiating to both arms??with nausea and diaphoresis. ??He states he felt really lousy in general.?? His activated EMS. ??He was given??aspirin and sublingual nitro spray.?? His symptoms resolved with the nitro spray and have not recurred.?? He does have a history of esophageal spasm,??which does not seem to be formally??diagnosed by GI, but instead states that his has the same symptom that was diagnosed by GI??and so??he feelsthat this??is what??he has as well.?? He states however that his presenting??symptoms are different??than his typical esophageal spasm. ?He otherwise denies??chest discomfort or shortness of breath with any of his typical activities.?? He denies??syncope, presyncope or dizziness on a usual basis.?? In the last couple of weeks, he has had some mild ankle edema when he takes his socks off at the end of the day.?? He denies PND or orthopnea. ?? He has had palpitations for years??described as a fluttering sensation??lasting a couple of minutes.?? He does not have any associated symptoms with it such as dizziness or lightheadedness. ??He never has chest discomfort or breathlessness with these palpitations.?? He?denies any increased??in his symptoms of palpitations of late.?? His palpitations are not??induced by??activity. ?? His EKGs have all been nonischemic.?? His initial troponin 8, subsequent 30, 36, and then back down to 11.?? He was started on a heparin drip and transferred to [facility] for consideration of cardiac catheterization. Review of Systems A full review of systems was completed and is otherwise negative except as mentioned in history of present illness. Objective Vital Signs?? Temperature: 98 DegF (09/09/24 07:36:00) Temperature Route: Temporal (09/09/24 07:36:00) Pulse Rate: 62 bpm (09/09/24 07:53:00) Respiratory Rate: 18 br/min (09/09/24 07:36:00) Systolic Blood Pressure:??145 mm Hg??High (09/09/24 07:53:00) Diastolic Blood Pressure: 75 mm Hg (09/09/24 07:53:00) Blood pressure sites: Arm, right (09/09/24 07:36:00) Mean Arterial Pressure: 98 mm Hg (09/09/24 07:36:00) Pulse Pressure: 70 mm Hg (09/09/24 07:36:00) Oxygen Saturation: 99 % (09/09/24 07:36:00) Mode of Delivery (Oxygen): Room air (09/09/24 07:36:00) Early Warning Score: 0 (09/09/24 07:53:40) ? Intake/Output? 09/08 18:17 09/09 07:00 09/08 07:00 07 07:00 09/06 07:00 ?? 09/09 08:33 09/09 08:33 0703 06:59 07 06:59 09/07 06:59 Intake ?112.9 ?0 ?112.9 ?0 ?0 Output ?200 ?0 ?200 ?0 ?0 Net Total ?-87.1 ?0 ?-87.1 ?0 ?0 ? Urine Count ?1 ?0 ?1 ?0 ?0 ? Physical Exam General appearance: WDWN, no acute distress, resting comfortably?? HEENT: NCAT, negative JVD, carotid pulses are +2 bilaterally without carotid bruit Respiratory: easy respiratory effort, lungs are clear to auscultation Cardiac: S1S2, heart rate regular, no murmurs/heaves/rubs/gallops Abdomen round, soft, non-tender, +bowel sounds x4 quadrants, no HSM appreciated?? Extremities: without edema Pulses: radial and pedal bilaterally +2 Neurologic: alert and oriented x3 Mood and Affect: calm Integument no rashes or changes : deferred ?? Tele:??NSR with PVCs Assessment/Plan Assessment:??73-year-old gentleman with no known CAD, though cardiac risk factors of??diabetes, hyperlipidemia, PMR??and??PAD??including??ectatic??iliac arteries??based on??ultrasound 01/2024.?He presents to [facility] as a transfer from [facility]??after developing chest discomfort while working in his yard and found to have mildly elevated troponin??that quickly??fell??again.?His??EKG is nonischemic.??His symptoms have resolved following sublingual nitro spray??with EMS. ?? AP 1) NSTEMI??without known CAD,??with significant risk factors of PMR, diabetes and hyperlipidemia??with ectatic iliac arteries - Patient is currently chest pain-free - He remains on a heparin drip - Plan for cardiac catheterization later today -?Risks/benefits/alternatives to cath discussed with patient including but not limited to heart attack/stroke//pain/bleeding/bruising/kidney dysfunction discussed with the patient.??The need for urgent, emergent or planned CABG discussed as well.??All patient's questions answered, and patient wishes to proceed with cath.?? - Continue aspirin, beta-autumn??and statin, though would intensify his pravastatin to atorvastatin??given his risk factors - Echocardiogram has been ordered but not yet completed - Further recommendations based on??clinical course ?? 2) PVCs - The patient reports palpitations for a number of years that have not increased in frequency -??He has PVCs on his outpatient??EKG??and his telemetry -??Could be ischemic??mediated,??plan for cath as above -??Beta-autumn has been started by the medicine team, with which we agree -??Can obtain 24-hour Holter monitor for PVC burden??outpatient ?? 3)??hyperlipidemia - Would recommend intensifying statin to atorvastatin??at least 40 mg daily - Last LDL in the outpatient records is 87 from 07/14/2024 ?Thank you for allowing us to participate in the care of your patient.??We will follow with the team.??Please call with questions or concerns. ? Resident/PA/MEDIA CONSULTANT Attestation?? Patient seen with attending physician Dr. Chacon? This note is completed with voice recognition software.?Please pardon any grammatical or syntax errors.? Histories Allergies Allergies ?(Active and Proposed Allergies Only) oxyCODONE? (Severity: Unknown severity, Onset: Unknown) Vicodin? (Severity: Unknown severity, Onset: Unknown) ? Past Medical History/Problem List No problems documented. ? Past Surgical History No surgery history documented. ? Social History Alcohol Details:??Use: Current. ??Frequency: 1-2 times per month. ??Type: Beer. Substance Abuse Details:??Use: Never. Tobacco Details:??Use: Never (less than 100 in lifetime). Electronic Cigarette/Vaping Details:??Electronic Cigarette Use: Never. ? Psychosocial History ? Family History No Family History documented. ? Medications Home Medications Pravastatin (pravastatin 40 mg oral tablet)??1 tab(s) 40 Milligram By Mouth Daily tocilizumab (Actemra)??gets infusion as an outpatient every 4 weeks ? Inpatient Medications Medications (14) Active SCHEDULED: (4) Aspirin 81 mg EC Tablet (aspirin 81 mg oral delayed release tablet) ??81 mg, By Mouth, Daily Metoprolol 25mg Tablet (metoprolol 25 mg oral tablet) ??25 mg, By Mouth, 2 times a day NaCl 0.9% Flush 3ml (NaCL 0.9% Flush) ??3 mL, IV Push, Every 8 hours Pravastatin 20 mg Tablet (pravastatin 20 mg oral tablet) ??40 mg, By Mouth, Daily CONTINUOUS: (1) Heparin 25,000 units / 250 mL D5W premix 25,000 units [12 units/kg/hr] + D5%W Premixed IV 250 mL (Heparin 25,000 units in 250 mL Premix 25,000 units [12 units/kg/hr] + D5%W Premixed IV 250 mL) ??250 mL, IV Infusion, 9.24 mL/hr PRN: (9) Acetaminophen 325 mg Tablet (Acetaminophen Tablet) ??650 mg, By Mouth, Every 4 hours Dextromethorphan-Guaifenesin 20 mg-200 mg/10 mL Liqu UD (Robitussin DM Liquid) ??10 mL, By Mouth, Every 4 hours Heparin 5000 units/mL Inj (1 mL) (Heparin Inj) ??4,500 units 0.9 mL, IV Push, Every 6 hours Heparin 5000 units/mL Inj (1 mL) (Heparin Inj) ??2,500 units 0.5 mL, IV Push, Every 6 hours Melatonin 3 mg Tablet (Melatonin Tablet) ??3 mg, By Mouth, Daily at bedtime NaCl 0.9% Flush 3ml (NaCL 0.9% Flush) ??3 mL, IV Push, Every 8 hours Polyethylene Glycol 17 Gm Powder (MiraLax Powder) ??17 Gm 1 pack/packet, By Mouth, Daily Senna Tablet ??8.6 mg 1 tablet, By Mouth, 2 times a day Simethicone 80 mg Chewable Tablet (Simethicone Tablet) ??80 mg, Chew, 3 times a day ? Results Recent Labs BLOOD COUNT & DIFF WBC 5.2 k/mm3 ()?? 09/09/2024 01:13 RBC 4.72 m/mm3 ()?? 09/09/2024 01:13 Hgb 15.0 Gm/dL ()?? 09/09/2024 01:13 Hct 43.1 % ()?? 09/09/2024 01:13 MCV 91.3 femtoliters ()?? 09/09/2024 01:13 MCH 31.8 pg ()?? 09/09/2024 01:13 MCHC 34.8 Gm/dL ()?? 09/09/2024 01:13 Platelet Count 195 k/mm3 ()?? 09/09/2024 01:13 RDW-SD 40.0 femtoliters ()?? 09/09/2024 01:13 MPV 10.4 femtoliters ()?? 09/09/2024 01:13 Nucleated RBC (Automated) 0.0 #/100 WBC'S ()?? 09/09/2024 01:13 Abs. NRBC 0.0 k/mm3 ()?? 09/09/2024 01:13 Abs. Neut 1.0 k/mm3 (Low)?? 09/08/2024 08:11 Abs. Lymph 1.5 k/mm3 ()?? 09/08/2024 08:11 Abs. Highlands 0.4 k/mm3 ()?? 09/08/2024 08:11 Abs. Eo 0.1 k/mm3 ()?? 09/08/2024 08:11 Abs. Baso 0.0 k/mm3 ()?? 09/08/2024 08:11 Neut % 33.9 % (Low)?? 09/08/2024 08:11 Lymph % 49.3 % (High)?? 09/08/2024 08:11 Highlands % 12.2 % (High)?? 09/08/2024 08:11 Eos % 3.6 % ()?? 09/08/2024 08:11 Baso % 1.0 % ()?? 09/08/2024 08:11 Imm Gran 0.0 % ()?? 09/08/2024 08:11 Abs. Imm Gran 0.0 k/mm3 ()?? 09/08/2024 08:11 ?? CARDIAC Nt-Probnp 50 pg/mL ()?? 09/08/2024 08:11 High Sensitivity Troponin (HSTnT) 11 ng/L ()?? 09/09/2024 01:13 ?? CHEM GENERAL Sodium 141 mmol/L ()?? 09/09/2024 01:13 Potassium 4.8 mmol/L ()?? 09/09/2024 01:13 Chloride 107 mmol/L ()?? 09/09/2024 01:13 Bicarbonate Level 23 mmol/L ()?? 09/09/2024 01:13 Anion Gap 11 mmol/L ()?? 09/09/2024 01:13 Glucose Level 100 mg/dL (High)?? 09/09/2024 01:13 BUN 23 mg/dL ()?? 09/09/2024 01:13 Creatinine-Blood 0.99 mg/dL ()?? 09/09/2024 01:13 Estimated GFR Creatinine 81 ML/MIN/1.73 M2 ()?? 09/09/2024 01:13 Calcium 9.4 mg/dL ()?? 09/09/2024 01:13 Protein, Total 6.0 Gm/dL (Low)?? 09/09/2024 01:13 Albumin 3.9 Gm/dL ()?? 09/09/2024 01:13 AG Ratio 1.9 ()?? 09/09/2024 01:13 Alkaline Phosphatase 64 units/L ()?? 09/09/2024 01:13 AST (SGOT) 27 units/L ()?? 09/09/2024 01:13 ALT (SGPT) 20 units/L ()?? 09/09/2024 01:13 Bilirubin, Total 0.7 mg/dL ()?? 09/09/2024 01:13 ?? COAG INR 1.1 ()?? 09/08/2024 08:11 Protime (PT) 11.3 seconds ()?? 09/08/2024 08:11 APTT 63.9 seconds (High)?? 09/09/2024 01:13 ?? HEME OTHER Hold Blue Top SPECIMEN DISCARDED AFTER 4 HOURS. ()?? 09/08/2024 08:11 ?? LIPID STUDIES Cholesterol 166 mg/dL ()?? 09/09/2024 01:13 Triglycerides 79 mg/dL ()?? 09/09/2024 01:13 HDL Cholesterol 65 mg/dL ()?? 09/09/2024 01:13 LDL Cholesterol 85 mg/dL ()?? 09/09/2024 01:13 Non HDL Cholesterol 101 mg/dL ()?? 09/09/2024 01:13 ?? MISC. CHEMISTRY Hold Gel Top SPECIMEN DISCARDED AFTER 1 WEEK ()?? 09/08/2024 08:11 ?? URINE OTHER Est Creatinine Clearance 71.54 mL/min ()?? 09/09/2024 02:31 ? * Ines RAMIREZ, Jair Silva: PERFORM Event Display: Consultation Note Authored Date: Pt seen and evaluated with Karly Easley NP. I am responsible for medical decision making. ?? Risk factors for CAD and symptoms of exertional chest discomfort.?? Troponins marginally elevated.?? We recommend coronary angiography which we will arrange for today.?? Further recommendations will be forthcoming. Patient Care team information Care Team Personnel Name: Jr SMITH, Todd Position: [facility] RN Member Role: Primary Care Nurse Name: Ignacio Resendez MD Position: [facility] Physician - Primary Care Member Role: PCP [address]: [address] [place] [address] [employer] [place] [address]- Telecom: Insurance Providers Guarantor name: KATIE Health Plan Information #: 1 Payer: MEDICARE A INPT 25 Payer Identifier: KATIE Member Number: [id number] Group Number: [id number] Subscriber Identifier: [id number] Relationship to Subscriber: self Coverage Type: MEDICARE Coverage Verification Date: KATIE Telecom: NA Address: KATIE Health Plan Information #: 2 Payer: MEDEX SECONDARY ONLY Payer Identifier: KATIE Member Number: [id number] Group Number: [id number] Subscriber Identifier: [id number] Relationship to Subscriber: self Coverage Type: Medicare Other Coverage Verification Date: NA Telecom: KATIE Address:
--- OUTSIDE RECORDS SUMMARY | 2024-09-13 09:50 | XMS_ITS | Patient Health Record ---
Author Organization [facility] Address [address] [place] [address] Care Team Providers Care Adjunct Professor Of Law Name Role Phone Ignacio Resendez MD Primary Care Provider Unavail able Willis Colon Unavailable [phone] Reason For Referral No Information Medications Medication SIG (Take, Route, Frequency, Duration) Notes Start Date End Date Status Pravastatin Sodium 40 MG 1 tablet Orally Once a day Active Aspir-81 81 MG 1 tablet Orally Once a day Active Problems Problem Type SNOMED Code ICD Code Onset Dates Problem Status W/U Status Risk Notes Problem 667848399 Encounter for screening for malignant neoplasm of colon (Z12.11) Active confirmed Problem Encounter for screening for malignant neoplasm of rectum (Z12.12) Active confirmed Problem 20552286 Preprocedural examination (Z01.818) Active confirmed Plan Of Treatment Future Test Test Name Order Date COLONOSCOPY 05/18/2015 Insurance Providers Payer Name Payer Address Payer Phone Subscriber Number Group Number Insured Name Patient Relationship to Insured Coverage Start Date Coverage End Date [facility] [address] [place] [phone] [id number] IRIS JEFF Self - patient is the insured Medical (General) History Medical History History ICD Code Denies [place],DM,CVA,Lung disease,renal dise ase hyperlipidemia He reports a negative colonoscopy at [facility] in approx 2005
--- OUTSIDE RECORDS SUMMARY | 2024-09-13 09:50 | XMS_ITS | Encounter Summary ---
Author Organization [place] [address] Care Team Providers Care Nurse Manager Name Role Phone Priya Resendez MD Primary Care Provider [phone] Reason for Referral * Cardiac Stress Testing (Routine) - Authorized Specialty Diagnoses / Procedures Referred By Contac t Referred To Contact Cardiology Diagnoses PVC's (premature ventricular contractions) Procedures Cardiac holter monitor (<= 48 hours) KS ECG EXTERNAL UP TO 48 HOURS RECORDING KS ECG EXTERNAL < 48 HOURS CONTINUOUS RECORDING/STORAGE R&I BY A PHYS/QHP KS EXTERNAL ECG UP TO 48 HRS INCL RECORDING SCANNING ANLYS W REPORT Karly Easley NP [address] [place] [address] Phone: tel: fax: [facility] Referral ID Status Reason Start Date Expiration Date V isits Requested Visits Authorized [id number] Authorized 09/09/2024 09/09/2025 1 1 Encounter Details Date Type Department Care Team (Late st Contact Info) Description 09/09/2024 Telephone [facility] - [address] [place] [id number] Karly Easley NP [address] [place] [address] Social History Tobacco Use Types Packs/Day Years [...] your loved ones. For example, child support case officer or elderly care for an older adult? [...] as of this encounter Progress Notes * Karly Easley NP - 09/09/2024 5:06 PM EDT Pls arrange holter for PVC burden Then HFU with KMO or JEFFREY in about 4 weeks, to follow his holter Dx elevated trop, PVCs, cath, ECHO, holter Dr Resendez and som Sapp would like to follow in our group. Can you pls cancel the [facility] [place]? Thank you!!! documented in this encounter Plan of Treatment Upcoming Encounters Date Type Department Care Team (Late st Contact Info) Description 01/17/2025 8:30 AM EST Office Visit Adult Medicine - [address] [place] [address] Priya Resendez MD [address] [place] [address] Scheduled Orders Name Type Priority Associated Diagnoses Orde r Schedule Cardiac holter monitor (<= 48 hours) Cardiac Services Routine PVC's (premature ventricular contractions) 1 Occurrences starting 09/09/2024 until 09/09/2025 documented as of this encounter Visit Diagnoses Diagnosis PVC's (premature ventricular contractions)- Primary Other premature beats documented in this encounter Additional Health Concerns Assessment Noted Time PHQ-9 Depression Total Score: 0 04/23/19 25 4:18 PM EST documented as of this encounter Care Teams Nurse Manager Relationship Specialty Start Date End Date Priya Resendez MD [address] [place] [address] PCP - General 10/16/01 documented as of this encounter
[2024-09-13 11:06] LABS: Hematocrit 41.7 % (42.0-52.0); Hemoglobin 14.8 g/dl (14.0-18.0); Imm Gran Abs Auto 0.01 X10*3/uL (0.00-0.03); Imm Gran Pct Auto 0.2 % (0.0-0.4); Lymphocytes Absolute Auto 1.6 X10*3/uL (1.2-4.9); MANUAL DIFF FLAG SCAN; Mean Corpuscular HGB Conc 35.5 g/dl (31.0-36.0); Mean Corpuscular Hemoglobin 32.2 pg (27.0-33.0); Mean Corpuscular Volume 90.7 fL (80.0-98.0); NRBC Abs Auto 0.000 X10*3/uL (0.0-0.012); NRBC Pct Auto 0.0 /100WBC (0.0-0.2); PLT CLUMP 1; Red Blood Count 4.60 X10*6/uL (4.60-5.80); SCAN SMEAR FLAG 1
[2024-09-13 11:07] LABS: White Blood Count 4.0 X10*3/uL (4.8-10.8)
[2024-09-13 11:18] LABS: Platelet Count 152 X10*3/uL (160-400)
[2024-09-13 13:36] LABS: Alanine Aminotransferase 34 U/L (0-40); Albumin Level 4.5 g/dL (3.5-5.0); Alkaline Phosphatase 75 U/L (39-117); Anion Gap 11 (12-20); Aspartate Amino Transferase 30 U/L (5-37); Blood Urea Nitrogen 23 mg/dL (9-16); Calcium 9.6 mg/dL (8.4-10.2); Carbon Dioxide 28 mmol/L (22-29); Chloride 107 mmol/L (96-108); Estimated Glomerular Filt Rate > 60; Potassium 5.0 mmol/L (3.3-5.1); Sodium 141 mmol/L (135-145); Total Protein 6.3 g/dL (6.5-8.0)
== END 2024-09-13 09:21 | disposition home or self-care (01) ==
LOC: HO.LAB 09:20
PROVIDERS: PCP Pediatrics; Referring Provider Student in an Organized Health Care Education/Training Program; Visit Provider Student in an Organized Health Care Education/Training Program
DX: M35.3 Polymyalgia rheumatica (principal)
CPT/HCPCS: 36415; 80053; 85025; 86140

== ENCOUNTER 2024-09-15 13:31 | Outpatient (AMB) | payer MEDICARE, SELFPAY ==
--- OUTSIDE RECORDS SUMMARY | 2024-09-15 10:30 | XMS_ITS | Encounter Summary ---
Author Organization [facility] [place] [address] Care Team Providers Care Manager Support Services Name Role Phone Priya Resendez MD Primary Care Provider [phone] Reason for Visit * Reason Comments Hospital Follow-up Encounter Details Date Type Department Care Team (Latest Contact Info) Description 09/15/2024 10:30 AM EDT Office Visit Adult Medicine - [address] [phone] Brissa Polanco MD [address] [place] [id number] Ventricular arrhythmia (Primary Dx); Polymyalgia rheumatica (CMS/HCC V24); Palpitation; DM (diabetes mellitus), type 2 with peripheral vascular complications (CMS/HCC V24, CMS/HCC V28) Social History Tobacco Use Types Packs/Day Years [...] for your loved ones. For example, child psychiatrist or elderly care for an older [...] Sign Reading Time Taken Comments Blood Pressure 120/56 09/15/2024 10:19 AM EDT Pulse 66 09/15/2024 10:19 AM EDT Temperature 36.6 C (97.9 F) 09/15/2024 10:19 AM EDT Respiratory Rate - - Oxygen Saturation - - Inhaled Oxygen Concentration - - Weight 78 kg (172 lb) 09/15/2024 10:19 AM EDT Height 180.3 cm (5' 11 ) 09/15/2024 10:19 AM EDT Body Mass Index 23.99 09/15/2024 10:19 AM EDT documented in this encounter Progress Notes * Brissa Polanco MD - 09/15/2024 10:30 AM EDT CHIEF COMPLAINT: Hospital Follow-up IDENTIFIER: Arias Mares is a 73 y.o. old male. HPI: This is my first visit very pleasant 73-year-old man presents after being admitted to the hospital for chest pain He has a diagnosis of diabetes polymyalgia rheumatica hypercholesterolemia Patient had presented to [facility] on 09/08/2024 in an ambulance . 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 Renal cyst 07/08/2022 Polymyalgia rheumatica ([facility] V24) 12/10/2021 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 blood glucose control high,low (FreeStyle Control) solution USE DIRECTED blood sugar diagnostic (FreeStyle Lite Strips) test strip Use as instructedUSE TO CHECK BLOOD SUGARONCE DAILY 100 strip 1 blood-glucose meter kit Check blood sugar bid FREESTYLE LANCETS MISC CHECK BLOOD SUGAR DAILY metoprolol tartrate (LOPRESSOR) 25 mg tablet Take 1 tablet (25 mg total) by mouth 2 (two) times a day. pravastatin (PRAVACHOL) 40 mg tablet TAKE 1 TABLET BY MOUTH EVERY DAY 90 tablet 1 tocilizumab (Actemra) 20 mg/mL solution Infuse into a venous catheter. ALLERGIES: Hydrocodone-acetaminophen PHYSICAL EXAM: Blood pressure 120/56, pulse 66, temperature 36.6 ??C (97.9 ??F), temperature source Temporal, height 1.803 m (71 ), weight 78 kg (172 lb). Body mass index is 23.99 kg/m??. Plan is deferred because the patient is aged 65 or older and a weight gain/reduction plan would complicate other health conditions APPEARANCE: Alert and in no acute distress EYES: PERRLA, conjunctiva and sclera normal EARS: External ears normal. Canals clear. TMs normal. HEART: RRR with normal S1 and S2, no murmurs, no gallops, no JVD appreciated LUNG: clear to auscultation bilaterally LYMPH NODES: grossly normal LABS: Discharge summary reviewed lab work x-rays cath report sent to scan Lab Results Component Value Date HGBA1C 5.3 07/14/2024 IMPRESSION: 1. Ventricular arrhythmia 2. Polymyalgia rheumatica (CMS/HCC V24) 3. Palpitation 4. DM (diabetes mellitus), type 2 with peripheral vascular complications (CMS/HCC V24, CMS/HCC V28) PLAN: Patient admitted for ventricular arrhythmia possible non-STEMI On Metroprolol and aspirin Follows with cardiology is going to have a Holter monitor Will follow closely He is up-to-date on his medications for his polymyalgia rheumatica Return to the office as scheduled with PCP No orders of the defined types were placed in this encounter. ADDITIONAL ORDERS: None Brissa Polanco MD on 09/15/2024 at 12:45 PM EDT documented in this encounter Plan of Treatment Upcoming Encounters Date Type Department Care Team (Late st Contact Info) Description 09/20/2024 9:30 AM EDT Ancillary Procedure [facility] - [address] [place] [address] 01/17/2025 8:30 AM EST Office Visit Adult Medicine - [facility] [address] [place] [address] Priya Resendez MD [address] [place] [address] documented as of this encounter Visit Diagnoses Diagnosis Ventricular arrhythmia- Primary Unspecified cardiac dysrhythmia Polymyalgia rheumatica ([facility] V24) Polymyalgia rheumatica Palpitation Palpitations DM (diabetes mellitus), type 2 with peripheral vascular complications ([facility] V24, [facility] V28) Type II or unspecified type diabetes mellitus with peripheral circulatory disorders, not stated as uncontrolled documented in this encounter Historical Medications * This list may reflect changes made after this encounter. aspirin 81 mg EC tablet Take 1 tablet (81 mg total) by mouth 1 (one) time each day. metoprolol tartrate (LOPRESSOR) 25 mg tablet Take 1 tablet (25 mg total) by mouth 2 (two) times a day. 09/09/2024 added in this encounter Additional Health Concerns Assessment Noted Time PHQ-9 Depression Total Score: 0 04/23/19 25 4:18 PM EST documented as of this encounter Care Teams Manager Support Services Relationship Specialty Start Date End Date Priya Resendez MD [address] [place] [address] [facility] [place] [address] PCP - General 10/16/01 documented as of this encounter
--- NOTE | 2024-09-15 13:34 | MHC.OFFVIS ---
Vital Signs 09/15/24 13:47 Height 5 ft 11 in Weight 171 lb 4.787 oz BMI 23.9 BP 131/72 Blood Pressure Location Lt brachial Position Sitting Pulse 71 Pulse Source Pulse Oximeter Pulse Oximetry (%) 99 Oxygen Delivery Method Room Air Intake Visit Reasons: PMR Intake Note: Patient last seen by Doctor Darling Nicholson on 05/25/24. Presents today for PMR follow up and test results. Patient reports taking Metoprolol, but unsure of strength. Allergies hydrocodone Allergy (Severe, Verified 09/15/24 13:49) Vomiting oxycodone Allergy (Severe, Verified 09/15/24 13:49) Dizziness HPI Comments Details: Patient is a 73-year-old male with diabetes, hyperlipidemia, polyarticular osteoarthritis, osteopenia and polymyalgia rheumatica here today for follow up Interval History: Patient last seen 05/15/2024 with me - tapered prednisone to 1 mg without return of sx - plan to stop prednisone Since then - About 1 week ago patient had sudden onset of chest pain radiating down the hands - Went to the ED, concerned that he may have been having an KS - Trops were elevated - Cardiac cath showed no blockages - Diagnosed with prinzmetal's angina, computer customer support specialist thinks actemra could be the culprit - Sx improved on its own Today, - Stopped prednisone in 06/2024 - No further episodes - Currently has a holter monitor - No PMR symptoms at this time. shoulders feel great Rheumatologic History: Onset? fall 2020; prednisone since 11/2021 Actemra infusion added 01/2024 effective Current Rheumatology Medication(s): Actemra IV 8mg/kg every 4 weeks Prednisone 1 mg [facility] Medical History (Updated 05/27/24 @ 09:48 by Dg Barnett MD) Renal cyst Murmur AAA (abdominal aortic aneurysm) Diabetes Osteoarthritis TMJ arthralgia PMR (polymyalgia rheumatica) Osteopenia Decreased muscle strength High cholesterol Surgical History (Updated 05/25/24 @ 11:21 by NILA Barclay) History of shoulder surgery H/O colonoscopy Family History Father Colon polyps, Onset Age: 70 Prostate cancer, Onset Age: 70 Abdominal aortic aneurysm, Onset Age: 82 Mother Hypertension Thyroid disease Social History Household Members: Spouse Housing: House Are you a primary director of managed care to a significant other at home: No Do you presently have visiting nurse or other home services: No Alcohol intake: current Alcohol intake frequency: a few times a month Alcohol type: beer Patient Tobacco Use Status: Never used Tobacco e-Cigarette/Vaping Use: Never Used service: No Current occupational status: retired 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 Review of Systems Const Details: Review of Systems Constitutional: Denies fever, chills, weight loss ENT: Denies vision changes, eye pain or eye redness, dental caries, dry mouth GI: Denies nausea, vomiting, diarrhea, abdominal pain, change in BM Pulm: Denies SOB, VALERIO, hemoptysis, wheezing Cards: Denies chest pain, palpitations Skin: Denies Raynaud's, rash, nail changes, photosensitivity, NURSE SPECIAL: Denies headaches, weakness, paresthesias, recurrent falls MSK: as per HPI All other systems reviewed and are unremarkable except noted above Physical Exam Vital Signs: Last Vital Signs Pulse 71 09/15/24 13:47 BP 131/72 09/15/24 13:47 Pulse Ox 99 09/15/24 13:47 Oxygen Delivery Method Room Air 09/15/24 13:47 BMI result Body Mass Index 23.9 Results Reviewed Results Reviewed: Laboratory Tests 08/24/24 09/13/24 13:27 09:54 WBC 4.0 L RBC 4.60 Hgb 14.8 Hct 41.7 L Plt Count 152 L ESR 2 Sodium 141 Potassium 5.0 Chloride 107 Carbon Dioxide 28 BUN 23 H Creatinine 0.88 AST 30 ALT 34 Alkaline Phosphatase 75 C-Reactive Protein < 0.04 Assessment & Plan Assessment & Plan (1) Polymyalgia rheumatica: Comment: Onset? fall 2020; prednisone since 11/2021 Actemra infusion added 01/2024 effective Code(s): M35.3 - Polymyalgia rheumatica Category: Medical Plan: #PMR Patient is a 73-year-old gentleman with PMR currently in remission. Patient able to stop his prednisone. Had an episode of chest pain with elevated cardiac enzymes 1 week ago with normal catheterization. There was concern that his Prinzmetal angina maybe related to Actemra. I do not know of any case which connects Prinzmetal type angina to Actemra. Actemra is well known to cause an elevation in triglycerides however there has not been data showing that this increase in triglycerides is associated with coronary artery disease. Furthermore his coronary arteries were patent. That being said given the concern from his computer customer support specialist we will decrease his Actemra infusion from 8 mg per kg to 6 milligrams/kilogram Plan - Decrease actemra infusions 6mg/kg every 4 weeks - RTC 4 months - Labs before visit: CBC, CMP, ESR, CRP, lipid panel Robert FS, Sandra E, Steven ER, Thien M, Harmony L, Miguel?o T, Sheyla MS, Silvino Morrison E, Brigid O, Jazmyne G, Dylan I, Ciara J, Pedro P, Alina A, Huber F. Effect of Tocilizumab on LDL and HDL Characteristics in Patients with Rheumatoid Arthritis. An Observational Study. Rheumatol Ther. 2020;8(2):803-815. doi: 10.1007/[id number]. Epub 2020Jun 09. PMID: [id number]; PMCID: [id number]. (2) Osteopenia: Comment: DEXA 08/2022: AP spine 0.4, Left femur neck -1.8, Left femur total -1.2. FRAX 12/09.9 Code(s): M85.80 - Other specified disorders of bone density and structure, unspecified site Category: Medical Qualifiers: Osteopenia location: multiple sites Qualified Code(s): M85.89 - Other specified disorders of bone density and structure, multiple sites Plan: #Osteopenia Patient with osteopenia currently on vitamin-D supplementation. Patient states that he rides a stationary bike for 3 miles a day with high resistance Plan - Repeat DEXA 08/2024 - Continue Vit D - At next lab draw check Vit D (3) Bradycardia: Code(s): R00.1 - Bradycardia, unspecified Plan: #Bradycardia Resolved (4) Encounter for monitoring tocilizumab therapy: Code(s): Z51.81 - Encounter for therapeutic drug level monitoring; Z79.620 - meterman (current) use of immunosuppressive biologic Plan: #Long-term Use of Tocilizumab Discussed the risks and benefits of tocilizumab with the management of this patient's rheumatic condition. ? Benefits include decreased pain, improved mortality, improved quality of life Risks include LFT abnormalities, elevated triglycerides, GI perforations Contraindicated in a patient with history of diverticulitis Monitoring: ?CBC, CMP, triglycerides Plan I spent 32 minutes reviewing the record and labs, taking a history, examining the patient, discussing the treatment plan, ordering diagnostic work up and documenting in the medical record Coding Level of Care Code Est Pt Level 4 (59062) Complex EM visit Add On G2211 Diagnoses Polymyalgia rheumatica M35.3 Osteopenia of multiple sites M85.89 Osteopenia location: multiple sites Bradycardia R00.1 Encounter for monitoring tocilizumab therapy Z51.81; Z79.151
[2024-09-15 13:47] VITALS: BP 131/72; PULSE 71; O2SAT 99; BMI 23.9
--- OUTSIDE RECORDS SUMMARY | 2024-09-15 14:22 | XMS_ITS | Patient Health Record ---
Author Organization [facility] Address [address] [place] [address] Care Team Providers Care Automotive Alignment Specialist Name Role Phone Ignacio Resendez MD Primary Care Provider Unavail able Willis Colon Unavailable [phone] Reason For Referral No Information Medications Medication SIG (Take, Route, Frequency, Duration) Notes Start Date End Date Status Pravastatin Sodium 40 MG 1 tablet Orally Once a day Active Aspir-81 81 MG 1 tablet Orally Once a day Active Problems Problem Type SNOMED Code ICD Code Onset Dates Problem Status W/U Status Risk Notes Problem [id number] Encounter for screening for malignant neoplasm of colon (Z12.11) Active confirmed Problem Screening for malignant neoplasm of rectum (943052396) Encounter for screening for malignant neoplasm of rectum (Z12.12) Active confirmed Problem 80054794 Preprocedural examination (Z01.818) Active confirmed Plan Of Treatment Future Test Test Name Order Date COLONOSCOPY 05/18/2015 Insurance Providers Payer Name Payer Address Payer Phone Subscriber Number Group Number Insured Name Patient Relationship to Insured Coverage Start Date Coverage End Date [facility] [address] [place] [phone] [id number] IRIS JEFF Self - patient is the insured Medical (General) History Medical History History ICD Code Denies [place],DM,CVA,Lung disease,renal dise ase hyperlipidemia He reports a negative colonoscopy at [facility] in approx 2005
== END 2024-09-15 14:23 | disposition home or self-care (01) ==
LOC: HO.RHE 13:32
PROVIDERS: PCP Pediatrics; Visit Provider Student in an Organized Health Care Education/Training Program
DX: M35.3 Polymyalgia rheumatica (principal); M85.89 Other specified disorders of bone density and structure, multiple sites; R00.1 Bradycardia, unspecified; Z51.81 Encounter for therapeutic drug level monitoring; Z79.620 Long term (current) use of immunosuppressive biologic
CPT/HCPCS: 99214; G2211

== ENCOUNTER → 2024-09-15 13:31 | Outpatient (BNVA) | payer MEDICARE, SELFPAY | PROVIDERS: PCP Pediatrics; Visit Provider Student in an Organized Health Care Education/Training Program | DX: M35.3 Polymyalgia rheumatica (principal); M85.89 Other specified disorders of bone density and structure, multiple sites; Z51.81 Encounter for therapeutic drug level monitoring; R00.1 Bradycardia, unspecified; Z79.52 Long term (current) use of systemic steroids; Z79.620 Long term (current) use of immunosuppressive biologic | CPT/HCPCS: 99212 ==

== ENCOUNTER 2024-10-20 08:25 | Outpatient (REF) | payer MEDICARE, SELFPAY ==
--- NOTE | ~2024-10-20 | MM_ITS ---
EXAMINATION: DXA BONE DENSITY AXIAL HISTORY: M81.0 - Age-related osteoporosis without current pathological fracture TECHNIQUE: Bilbus Dual energy absorptiometry (DEXA) of the lumbar spine, total left hip, and femoral neck was performed. COMPARISON: Comparison is made with the prior examination dated 09/05/2022. FINDINGS: The bone mineral density of the lumbar spine is 1.327 g/cm2, corresponding to a T-score of 0.9, and a Z-score of 1.5. This is indicative of normal bone mineral density. This represents a BMD change of 4.3% compared to the prior exam. This is statistically significant. The bone mineral density of the left total hip is 0.929 g/cm2, corresponding to a T-score of -1.2, and a Z-score of -0.4. This is indicative of osteopenia. This represents a BMD change of -0.5% compared to the prior exam. This is not statistically significant. The bone mineral density of the left femoral neck is 0.848 g/cm2, corresponding to a T-score of -1.7, and a Z-score of -0.4. This is indicative of osteopenia. This represents a BMD change of 1.2% compared to the prior exam. FRACTURE RISK: The FRAX index suggests a ten year probability of major osteoporotic fracture of 13.5%, and of hip fracture 4.5%. MM/XR DEXA axial skeleton IMPRESSION: Based on bone mineral density, and according to World Health Organization (WHO) criteria, the diagnosis is consistent with osteopenia. Statistically, 68% of repeat scans fall within 1 SD (+/- 0.010 g/cm2 for AP spine L1-L4) and 1 SD (+/- 0.012 g/cm2 for femur total) FRAX is a trademark of the [employer]'s [place] for Metabolic Bone Disease, a World Health Organization (WHO) Collaborating Center. Electronically signed by: Willis Parkinson MD 10/20/2024 08:54 AM EDT
--- OUTSIDE RECORDS SUMMARY | 2024-10-20 08:34 | XMS_ITS | Patient Health Record ---
Author Organization [facility] Address [address] [place] [address] Care Team Providers Care Primary Care Nurse Name Role Phone Ignacio Resendez MD Primary Care Provider Unavail able Willis Colon Unavailable [phone] Reason For Referral No Information Medications Medication SIG (Take, Route, Frequency, Duration) Notes Start Date End Date Status Pravastatin Sodium 40 MG 1 tablet Orally Once a day Active Aspir-81 81 MG 1 tablet Orally Once a day Active Problems Problem Type SNOMED Code ICD Code Onset Dates Problem Status W/U Status Risk Notes Problem [id number] Encounter for screening for malignant neoplasm of colon (Z12.11) Active confirmed Problem Screening for malignant neoplasm of rectum (908851246) Encounter for screening for malignant neoplasm of rectum (Z12.12) Active confirmed Problem 30396782 Preprocedural examination (Z01.818) Active confirmed Plan Of Treatment Future Test Test Name Order Date COLONOSCOPY 05/18/2015 Insurance Providers Payer Name Payer Address Payer Phone Subscriber Number Group Number Insured Name Patient Relationship to Insured Coverage Start Date Coverage End Date [facility] [address] [place] [phone] [id number] IRIS JEFF Self - patient is the insured Medical (General) History Medical History History ICD Code Denies [place],DM,CVA,Lung disease,renal dise ase hyperlipidemia He reports a negative colonoscopy at [facility] in approx 2005
--- OUTSIDE RECORDS SUMMARY | 2024-10-20 08:34 | XMS_ITS | Clinical Summary ---
Author Organization [facility] [address] [facility] lding Address [address] [place] [address] Phone Care Team Providers Care Green Tire Inspector Name Role Phone Priya Resendez MD Primary Care Provider [phone] Allergies Active Allergy Reactions Criticality Noted Date Comments Hydrocodone-Acetaminophen 04/20/2016 Oxycodone Dizziness 01/07/2024 Medications blood glucose control high,low (FreeStyle Control) solution USE DIRECTED 021 Active FREESTYLE LANCETS MISC CHECK BLOOD SUGAR DAILY 024 Active predniSONE (DELTASONE) 5 mg tablet Take 2 mg by mouth 1 (one) time each day. 023 Active blood-glucose meter kit Check blood sugar bid 021 Active tocilizumab (Actemra) 20 mg/mL solution Infuse into a venous catheter. Every four weeks for PMR Active blood sugar diagnostic (FreeStyle Lite Strips) test stripIndications :DM (diabetes mellitus), type 2 with peripheral vascular complications (CMS/HCC V24, CMS/HCC V28) Use as instructedUSE TO CHECK BLOOD SUGAR ONCE DAILY 100 strip 1 025 Active pravastatin (PRAVACHOL) 40 mg tablet TAKE 1 TABLET BY MOUTH EVERY DAY 90 tablet 1 025 Active aspirin 81 mg EC tablet Take 1 tablet (81 mg total) by mouth 1 (one) time each day. Active acebutoloL (SECTRAL) 200 mg capsuleIndicatio ns:PVC's (premature ventricular contractions),Co ronary-myocardia l bridge Take 1 capsule (200 mg total) by mouth 2 (two) times a day. 180 capsule 1 025 2025 Active metoprolol tartrate (LOPRESSOR) 25 mg tablet Take 1 tablet (25 mg total) by mouth 2 (two) times a day. 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 Can not account for troponin elevation at this time. Continue with beta autumn therapy, but will switch to acebutolol for reduced lightheadedness and improved PVC control. Continue with aspirin and pravastatin. Will obtain a non urgent cardiac PET stress test to evaluate for ischemia. Orders: acebutoloL (SECTRAL) 200 mg capsule; Take 1 capsule (200 mg total) by mouth 2 (two) times a day. PET myocardial perfusion imaging; Future PVC's (premature ventricular contractions) 10/05 Overview (10/06/2024): September 2024 inpatient echocardiogram showing preserved left ventricular systolic function LVEF 62% with no regional wall motion abnormalities, abnormal septal motion consistent with conduction delay normal biatrial size, normal RV size and systolic function, no hemodynamically significant valvular disease September 21, 2019 five 24-hour Holter monitor showing normal sinus rhythm with episodes of sinus bradycardia with heart rate range of 43 to 104 bpm with average of 63 bpm, rare PACs with 1 atrial pair, frequent PVCs and ventricular bigeminy with total burden of 7.5% and no significant pauses Assessment & Plan (10/06/2024 11:01 AM EDT): Lyndora of 7.5%. At times symptomatic, but also he may be symptomatic from bradycardia. Trial of acebutolol in place of metoprolol. Orders: ECG 12 lead acebutoloL (SECTRAL) 200 mg capsule; Take 1 capsule (200 mg total) by mouth 2 (two) times a day. 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 Borderline right Iliac aneurysm 03/02. Ectasia, no aneurysm Renal cyst 07/08/2022 Overview (12/09/2023): Ultrasound. Follow up CT multiple bilateral simple cysts. 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 Seborrheic keratoses 10/15/2018 Palpitations 04/22/2018 Pure hypercholesterolemia 06/20/2006 Assessment & Plan (10/06/2024 11:01 AM EDT): Continue with pravastatin. Calculus of kidney 06/10/2006 Overview (12/09/2023): 1997 Lateral epicondylitis 06/10/2006 Overview (12/09/2023): IMO update Resolved Problems Problem Noted Date Diagnosed Date Resolved Date CAD (coronary artery disease) 10/05/2024 10/06/2024 Encounters Date Type Department Care Team Description 10/12/2024 Telephone [facility] Cardiology [facility] [address] [place] [address] Yossi Weeks NP 10/06/2024 9:40 AM EDT Office Visit [facility] Cardiology [facility] [address] [place] [address] Yossi Weeks NP PVC's (premature ventricular contractions) (Primary Dx); Coronary-myocardial bridge; Pure hypercholesterolemia; Microvascular angina (CMS/[facility] V24) 09/20/2024 9:30 AM EDT Ancillary Procedure [facility] Cardiology [facility] [address] [place] [phone] PVC's (premature ventricular contractions) 09/15/2024 10:30 AM EDT Office Visit Adult Medicine [facility] [address] [place] [phone] Brissa Langley MD Ventricular arrhythmia (Primary Dx); Polymyalgia rheumatica (CMS/HCC V24); Palpitation; DM (diabetes mellitus), type 2 with peripheral vascular complications (CMS/HCC V24, CMS/HCC V28) 09/13/2024 Telephone [facility] [place] [address] [place] [phone] Rohit Cabral, RN Hospital Follow-up 09/09/2024 Telephone [facility] Cardiology [facility] [address] [place] [phone] Karly Easley NP from Last 3 Months Immunizations Name Administration [...] recombinant (Shingrix ) 19yo and older 09/09/2022,07/03/2022 Surgical History Surgery Date Site/Laterality Comments CARDIAC CATHETERIZATION DONE ON 09/09/[address] [facility] INDICATIONS: NSTEMI. Medical History Medical History Date Comments Hypertension Hyperlipidemia PMR (polymyalgia rheumatica) (CMS/HCC V24) Family History Medical History Relation Name Comments [...] Not Answered Alcohol Use Standard Drinks/Week Comments Not Currently 0 (1 standard drink = 0.6 oz pure alcohol) maybe 3 drinks every couple months Housing Instability Answer Date Recorde d Are [...] your loved ones. For example, child development teacher or elderly care for an older [...] Sign Reading Time Taken Comments Blood Pressure 140/70 10/06/2024 9:32 AM EDT Pulse 59 10/06/2024 9:32 AM EDT Temperature 36.6 C (97.9 F) 09/15/2024 10:19 AM EDT Respiratory Rate 16 01/14/2024 9:54 AM EST Oxygen Saturation 99% 10/06/2024 9:32 AM EDT Inhaled Oxygen Concentration - - Weight 77.5 kg (170 lb 14.4 oz) 10/06/2024 9:32 AM EDT Height 180.3 cm (5' 11 ) 10/06/2024 9:32 AM EDT Body Mass Index 23.84 10/06/2024 9:32 AM EDT Plan of Treatment Upcoming Encounters Date Type Department Care Team (Late st Contact Info) Description 01/17/2025 8:30 AM EST Office Visit Adult Medicine - [place] [address] [place] [phone] Priya Resendez MD [address] [place] [address] Health Maintenance Due Date Last Done Comments Diabetes: Annual Retina Eye Exam 11/01/1960 Medicare Annual Wellness Visit 02/16/2022 COVID-19 Vaccine ( season) 2023 07/25/2021, 01/22/2021, 07/22/2020, Additional history exists Influenza Vaccine (#1) 2024 , 01/09/2023, 01/09/2022, Additional history exists Social Influencers of Health Screening 01/07/2025 01/08/2024 Diabetes: Blood Sugar Control Test (HGBA1C) 01/14/2025 07/14/2024, 01/14/2024, 07/14/2023, Additional history exists Diabetes: Annual Urine Albumin-Creatinine Ratio (uACR) 07/14/2025 [...] 03/26/2017 Zoster Vaccines Completed 09/09/2022, 06/09, 11/20/2012 Depression Screening Completed 07/07/2024 HIB Vaccines Aged Out No longer eligi [...] Date/Time Associated Diagnosis Comments ECG 12-LEAD Routine 10/06/2024 11:01 AM EDT PVC's (premature ventricular contractions) CARDIAC HOLTER MONITOR (REPORT GENERATED IN HOUSE) Routine 09/20/2024 9:25 AM EDT PVC's (premature ventricular contractions) EXTERNAL CLINICAL LAB 09/13/2024 MICROALBUMIN CREATININE URINE RATIO Routine 07/14/2024 9:13 AM EDT DM (diabetes mellitus), type 2 with peripheral vascular complications ([facility]/HCC V24, [facility] V28) COMPREHENSIVE METABOLIC PANEL Routine 07/14/2024 9:05 [...] Health Maintenance Results * ECG 12 lead (10/06/2024 11:01 AM EDT) 10/06/2024 9:52 AM EDT 10/06/2024 9:56 AM EDT us Yossi Weeks NP ECG ORDERABLES Final Resul t GEMUSE * CARDIAC HOLTER MONITOR (REPORT GENERATED IN HOUSE) (09/20/2024 9:25 AM EDT) Anatomical Region Laterality Modality Cardiac Diagnost ic Narrative 09/22/2024 1:29 PM EDT [facility] DI[facility]ST[facility]ING DEPARTMENT [address] [place] [address], [place] [address] TEL: FAX: Type of Test: 24 Hour Holter Monitor Date of Test: 09/20/2024 Ordering Provider: Karly Easley NP Reason for Test: PVC's (premature ventricular contractions) PVCA Primer Expeditor And Drier Findings: 1: Normal Sinus Rhythm with episodes of Sinus Bradycardia. 2: Heart rate range was 43-104 bpm with an average of 63 bpm. Total time in Sinus Bradycardia: 10 hrs 33 mins. 3: Rare PACs and one atrial pair. 4: Frequent PVCs and ventricular bigeminy. Occasional couplets and aberrantly conducted beats. Rare triplets and ventricular trigeminy. PVC Lyndora was 7.5%. 5: No significant pauses noted, longest R-R was 1.6 seconds at 11:50 PM. 6: Diary returned with no symptoms noted. Impression: No sustained arrhythmias PVC burden 7.5% Karly Easley NP CV CARDIAC SERVICES PROCEDURES Final Result * External clinical lab (09/13/2024) [facility] On[facility] LAB BLOOD ORDERABLES Fin al Result * (ABNORMAL) Microalbumin creatinine urine ratio (07/14/2024 9:13 AM EDT) Creatinine, Urine 16.0 mg/dL LAB CHEMISTRY METHOD 07/14/2024 8:30 PM EDT [facility] Microalb, Ur 6.6 0.0 - 29.0 mg/L LAB CHEMISTRY METHOD 07/14/2024 8:30 PM EDT [facility] Microalb/Creat Ratio 41(H) <30 mg/g creat LAB CHEMISTRY METHOD 07/14/2024 8:30 PM EDT [facility] Urine Urine specimen obtained by clean catch procedure / Unknown Non-blood Collection / Unknown 07/14/2024 9:13 AM EDT 07/14/2024 9:13 AM EDT Priya Resendez MD LAB URINE ORDERABLES Final Res ult [facility] [address] [place] [address], [place] [phone] * Lipid panel with reflex to direct LDL (07/14/2024 9:05 AM EDT) Cholesterol 183 0 - 200 mg/dL LAB CHEMISTRY METHOD 07/14/2024 12:24 PM EDT [facility] Triglycerides 63 0 - 150 mg/dL LAB CHEMISTRY METHOD 07/14/2024 12:24 PM EDT [facility] HDL 83 >=40 mg/dL LAB CHEMISTRY METHOD 07/14/2024 12:24 PM EDT [facility] LDL Calculated 87 0 - 100 mg/dL LAB CHEMISTRY METHOD 07/14/2024 12:24 PM EDT [facility] VLDL Cholesterol Brandan 12.6 mg/dL LAB CHEMISTRY METHOD 07/14/2024 12:24 PM EDT [facility] Non HDL Chol. (LDL+VLDL) 100 <145 mg/dL LAB CHEMISTRY METHOD 07/14/2024 12:24 PM EDT [facility] Chol/HDL Ratio 2.2 0.0 - 4.4 LAB CHEMISTRY METHOD 07/14/2024 12:24 PM T [facility] Blood Venous blood specimen / Unknown Venipuncture / Unknown 07/14/2024 9:05 AM EDT 07/14/2024 9:09 AM EDT C Ja Resendez MD LAB BLOOD ORDERABLES Final Res ult [facility] [address] [place] [address], * Hemoglobin A1c (07/14/2024 9:05 AM EDT) Hemoglobin A1C 5.3 <6.5 % LAB CHEMISTRY METHOD 07/14/2024 2:24 PM EDT [facility] Mean Bld Glu Estim. 105 mg/dL LAB CHEMISTRY METHOD 07/14/2024 2:24 PM EDT [facility] Blood Venous blood specimen / Unknown Venipuncture / Unknown 07/14/2024 9:05 AM EDT 07/14/2024 9:09 AM EDT us C Ja Resendez MD LAB BLOOD ORDERABLES Final Res ult [facility] [address] [place] [address], [place] [phone] * (ABNORMAL) Comprehensive metabolic panel (07/14/2024 9:05 AM EDT) Pathologist [facility] Sodium 139 133 - 145 mmol/L LAB CHEMISTRY METHOD 07/14/2024 12:22 PM [facility] Potassium 4.6 3.5 - 5.5 mmol/L LAB CHEMISTRY METHOD 07/14/2024 12:22 PM [facility] Chloride 105 96 - 110 mmol/L LAB CHEMISTRY METHOD 07/14/2024 12:22 PM [facility] CO2 29 21 - 32 mmol/L LAB CHEMISTRY METHOD 07/14/2024 12:22 PM [facility] Anion Gap 5 3 - 11 LAB CHEMISTRY METHOD 07/14/2024 12:22 PM [facility] Glucose 104(H) 70 - 100 mg/dL LAB CHEMISTRY METHOD 07/14/2024 12:22 PM [facility] BUN 21 5 - 25 mg/dL LAB CHEMISTRY METHOD 07/14/2024 12:22 PM [facility] Creatinine 0.88 0.70 - 1.30 mg/dL LAB CHEMISTRY METHOD 07/14/2024 12:22 PM [facility] eGFR 91 >=60 mL/min/1. 73m2 LAB CHEMISTRY METHOD 07/14/2024 12:22 PM [facility] Comment:Calculation based on the Chronic Kidney Disease Epidemiology Collaboration (CKD-EPI) equation refit without adjustment for race. BUN/Creatinine Ratio 23.9 LAB CHEMISTRY METHOD 07/14/2024 12:22 PM [facility] Calcium 9.8 8.5 - 10.5 mg/dL LAB CHEMISTRY METHOD 07/14/2024 12:22 PM [facility] AST (SGOT) 25 10 - 42 unit/L LAB CHEMISTRY METHOD 07/14/2024 12:22 PM [facility] ALT (SGPT) 29 10 - 60 unit/L LAB CHEMISTRY METHOD 07/14/2024 12:22 PM [facility] Alkaline Phosphatase 81 42 - 121 unit/L LAB CHEMISTRY METHOD 07/14/2024 12:22 PM [facility] Total Protein 7.0 6.0 - 8.0 g/dL LAB CHEMISTRY METHOD 07/14/2024 12:22 PM [facility] Albumin 4.2 3.2 - 5.0 g/dL LAB CHEMISTRY METHOD 07/14/2024 12:22 PM [facility] Total Bilirubin 1.1 0.0 - 1.4 mg/dL LAB CHEMISTRY METHOD 07/14/2024 12:22 PM [facility] Blood Venous blood specimen / Unknown Venipuncture / Unknown 07/14/2024 9:05 AM EDT 07/14/2024 9:09 AM EDT Priya Resendez MD LAB BLOOD ORDERABLES Final Res ult [facility] [address] [place] [address], * Diabetes Foot Exam (07/14/2023) Pathologist Counts include 234 beds at the [facility] Diabetes: Annual Foot Exam abstracted Historical Provider HEALTH MAINTENANCE Final Result * Colonoscopy (08/03/2015) [facility] Colonoscopy no interpretation , abstracted Anatomical Region Laterality Modality Other Historical Provider HEALTH MAINTENANCE Final Result * Hepatitis C Screening (11/19/2011) Hepatitis C Screening abstracted Historical Provider HEALTH MAINTENANCE Final Result from Last 3 Months or Most Recently Relevant to Health Maintenance Insurance MEDICARE [facility] Care Teams Green Tire Inspector Relationship Specialty Start Date End Date Priya Resendez MD [facility] [place] [address] PCP - General 10/16/01
== END 2024-10-20 08:26 | disposition home or self-care (01) ==
LOC: HO.MAMMO 08:25
PROVIDERS: PCP Pediatrics; Visit Provider Student in an Organized Health Care Education/Training Program
DX: M81.0 Age-related osteoporosis without current pathological fracture (principal)
CPT/HCPCS: 77080

== ENCOUNTER → 2024-10-20 08:45 | Outpatient (BNV) | payer MEDICARE, SELFPAY | PROVIDERS: PCP Pediatrics; Visit Provider Radiology Diagnostic Radiology | DX: M81.0 Age-related osteoporosis without current pathological fracture (principal) | CPT/HCPCS: 77080 ==

== ENCOUNTER 2025-01-20 09:51 | Outpatient (AMB) | payer MEDICARE, SELFPAY ==
--- OUTSIDE RECORDS SUMMARY | 2025-01-17 08:30 | XMS_ITS | Encounter Summary ---
Author Organization [employer] [place] [place] [address] Care Team Providers Care Parking Line Painter Name Role Phone Priya Resendez MD Primary Care Provider Reason for Visit * Reason Comments Diabetes Hyperlipidemia 6 month f/u Encounter Details Date Type Department Care Team (Latest Contact Info) Description 01/17/2025 8:30 AM EST Office Visit Adult Medicine [facility] [address] [place] [phone] Priya Resendez MD [address] [place] [address] DM (diabetes mellitus), type 2 with peripheral vascular complications (CMS/HCC V24, CMS/HCC V28) (Primary Dx); Polymyalgia rheumatica (CMS/HCC V24); Pure hypercholesterolemia; Encounter for immunization Social History Tobacco Use Types Packs/Day Years Used Date Smoking Tobacco: Never Smokeless Tobacco: Never Tobacco Cessation:Counseling Given: Not Answered Alcohol Use Standard Drinks/Week Comments Not Currently 0 (1 standard drink = 0.6 oz pur e alcohol) a beer once in awhile Housing Instability Answer Date Recorde d Are [...] for your loved ones. For example, child daycare worker or elderly care for an older adult? [...] Date Recorded What is your living situation? Unrecognized valu e 01/08/2024 Sex and Gender Information Value Date Recorded Sex Assigned at Not on file Legal Sex Male 2:07 AM EST Gender Identity Not on file Sexual Orientation Not on file documented as of this encounter Last Filed Vital Signs Vital Sign Reading Time Taken Comments Blood Pressure 138/63 01/17/2025 8:31 AM EST Pulse 58 01/17/2025 8:31 AM EST Temperature 36.4 C (97.6 F) 01/17/2025 8:31 AM EST Respiratory Rate - - Oxygen Saturation - - Inhaled Oxygen Concentration - - Weight 81.8 kg (180 lb 6.4 oz) 01/17/2025 8:31 A M EST Height 180.3 cm (5' 11 ) 01/17/2025 8:31 AM EST Body Mass Index 25.16 01/17/2025 8:31 AM EST documented in this encounter Progress Notes * Priya Resendez MD - 01/17/2025 8:30 AM EST CHIEF COMPLAINT: Diabetes and Hyperlipidemia (6 month f/u/) IDENTIFIER: Arias Mares is a 74 y.o. old male. HPI: Diabetes Mellitus: Patient presents for follow up of diabetes. Symptoms: none. Patient denies polydipsia and polyuria. Home sugars: Not available. Current treatmnet: Diet Patient also has hypercholesterolemia. Is on pravastatin. Tolerating well. He has polymyalgia rheumatica and is following with rheumatology. He is on Actemra and doing well. He was hospitalized earlier this year with some chest discomfort. He did follow- up with cardiology.Heart catheterization was normal. PET stress testing showed some decreased perfusion which was feltto be artifactual. He is on acebutolol and has been doing well. 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 PVC's (premature ventricular contractions) 10/05/2024 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/2024 Renal cyst 07/08/2022 Polymyalgia rheumatica ([facility] V24) 12/10/2021 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), type 2 with peripheral vascular complications ([facility] V24, [facility] V28) 08/03/2020 Elevated blood sugar 01/27/2020 Snoring 01/20/2020 Seborrheic keratoses 10/15/2018 Palpitations 04/22/2018 Pure hypercholesterolemia 06/20/2006 Calculus of kidney 06/10/2006 Lateral epicondylitis 06/10/2006 SOCIAL HISTORY: Social History Tobacco Use Smoking status: Never Smokeless tobacco: Never Substance Use Topics Alcohol use: Not Currently Comment: a beer once in awhile FAMILY HISTORY: Family Status Relation Name Status Father Mother Brother Alive Sister Alive Sister Alive No partnership data on file Family History[1] ACTIVE MEDICATIONS: Medications Taking[2] ALLERGIES: Hydrocodone-acetaminophen, Oxycodone, and Regadenoson PHYSICAL EXAM: Blood pressure 138/63, pulse 58, temperature 36.4 ??C (97.6 ??F), temperature source Temporal, height 1.803 m (71 ), weight 81.8 kg (180 lb 6.4 oz). Body mass index is 25.16 kg/m??. Plan is deferred because the patient is aged 65 or older and a weight gain/reduction plan would complicate other health conditions APPEARANCE: Alert and in no acute distress NECK: Neck supple, no adenopathy, thyroid symmetric and of normal size, No bruits HEART: RRR with normal S1 and S2, no murmurs, no gallops, no JVD appreciated LUNG: clear to auscultation bilaterally ABDOMEN: Bowel sounds normoactive, no bruits and soft, non-tender, without organomegaly or palpablemasses EXTREMITIES: Extremities warm and well perfused without clubbing, cyanosis, or edema. Diabetic footexam shows bilateral bunion deformity with callus formation. Sensation intact to monofilament LABS: Lab Results Component Value Date HGBA1C 5.6 01/17/2025 CHOL 183 07/14/2024 LDLCALC 87 07/14/2024 HDL 83 07/14/2024 TRIG 63 07/14/2024 CREATUR 16.0 07/14/2024 MICROALBUR 6.6 07/14/2024 MICROALBCREA 41 (H) 07/14/2024 Lab Results Component Value Date GLUCOSE 165 (H) 11/18/2024 IMPRESSION: 1. DM (diabetes mellitus), type 2 with peripheral vascular complications ([facility] V24, [facility] V28) 2. Polymyalgia rheumatica ([facility] V24) 3. Pure hypercholesterolemia PLAN: There is lab work pending which patient will have done this morning. Diabetes has been well-controlled. Cholesterol stable, polymyalgia rheumatica stable. Continue current treatment. Influenza vaccine today. Follow-up in 6 months with blood work Orders Placed This Encounter Procedures Influenza trivalent, 0.5mL (Fluad) 65yo and older CBC and differential Comprehensive metabolic panel Lipid panel with reflex to direct LDL Hemoglobin A1c Microalbumin creatinine urine ratio Diabetes Foot Exam ADDITIONAL ORDERS: INFLUENZA TRIVALENT, 0.5ML (FLUAD) 65YO AND OLDER DIABETES FOOT EXAM Priya Resendez MD on 01/17/2025 at 2:39 PM EST [1] Family History Problem Relation Name Age of Onset Colon polyps Father 70's Other cancer Father Other (Other: Prostate cancer) Father 70's Other (Other: Aortic aneurism) Father abdominal--82 Hypertension Mother Thyroid disease Mother Hyperlipidemia Brother [2] Outpatient Medications Marked as Taking for the 01/17/25 encounter (Office Visit) with Priya Resendez MD Medication Sig Dispense Refill acebutoloL (SECTRAL) 200 mg capsule Take 1 capsule (200 mg total) by mouth 2 (two) times a day. 180capsule 3 aspirin 81 mg EC tablet Take 1 tablet (81 mg total) by mouth 1 (one) time each day. blood sugar diagnostic (FreeStyle Lite Strips) test strip Use as instructedUSE TO CHECK BLOOD SUGARONCE DAILY 100 strip 1 blood-glucose meter kit Check blood sugar bid cholecalciferol (Vitamin D3) 25 mcg (1,000 unit) capsule Take 1 capsule (1,000 Units total) by mouth 1 (one) time each day. cyanocobalamin (VITAMIN B-12) 1,000 mcg tablet Take 1 tablet (1,000 mcg total) by mouth 1 (one) time each day. FREESTYLE LANCETS MISC CHECK BLOOD SUGAR DAILY pravastatin (PRAVACHOL) 40 mg tablet TAKE 1 TABLET BY MOUTH EVERY DAY 90 tablet 1 tocilizumab (Actemra) 20 mg/mL solution Infuse into a venous catheter. Every four weeks for PMR documented in this encounter Plan of Treatment Upcoming Encounters Date Type Department Care Team (Late st Contact Info) Description 07/19/2025 8:45 AM EDT Office Visit Adult Medicine [facility] [address] [place] [phone] Priya Resendez MD [address] [place] [address] Scheduled Orders Name Type Priority Associated Diagnoses Orde r Schedule CBC and differential Lab Routine Polymyalgia rheumatica ([facility] V24) Expected: 06/17/2025, Expires: 01/17/2026 Comprehensive metabolic panel Lab Routine DM (diabetes mellitus), type 2 with peripheral vascular complications ([facility] V24, [facility] V28) Expected: 06/17/2025, Expires: 01/17/2026 Lipid panel with reflex to direct LDL Lab Routine DM (diabetes mellitus), type 2 with peripheral vascular complications ([facility] V24, CMS/[facility] V28) Expected: 06/17/2025, Expires: 01/17/2026 Hemoglobin A1c Lab Routine DM (diabetes mellitus), type 2 with peripheral vascular complications ([facility] V24, CMS/[facility] V28) Expected: 06/17/2025, Expires: 01/17/2026 Microalbumin creatinine urine ratio Lab Routine DM (diabetes mellitus), type 2 with peripheral vascular complications ([facility] V24, CMS/[facility] V28) Expected: 06/17/2025, Expires: 01/17/2026 documented as of this encounter Visit Diagnoses Diagnosis DM (diabetes mellitus), type 2 with peripheral vascular complications ([facility] V24, CMS/[facility] V28)- Primary Type II or unspecified type diabetes mellitus with peripheral circulatory disorders, not stated as uncontrolled Polymyalgia rheumatica (CMS/[facility] V24) Polymyalgia rheumatica Pure hypercholesterolemia Encounter for immunization documented in this encounter Orders Immunization/Injection Count Last Ordered Date First Ordered Date INFLUENZA TRIVALENT, 0.5ML ( FLUAD) 65YO AND OLDER 1 01/17/2025 Health Maintenance Count Last Ordered Date Firs t Ordered Date HM DIABETES FOOT EXAM 1 01/17/2025 documented in this encounter Additional Health Concerns Assessment Noted Time PHQ-9 Depression Total Score: 0 04/23/19 25 4:18 PM EST documented as of this encounter Care Teams Parking Line Painter Relationship Specialty Start Date End Date Priya Resendez MD [address] [place] [id number] PCP - General 10/16/01 documented as of this encounter
--- OUTSIDE RECORDS SUMMARY | 2025-01-17 09:00 | XMS_ITS | Encounter Summary ---
Author Organization [place] [place] [address] Care Team Providers Care Frequency Checker Name Role Phone Priya Resendez MD Primary Care Provider [phone] Encounter Details Date Type Department Care Team (Late st Contact Info) Description 01/17/2025 9:00 AM EST Lab Draw Station - [address] [phone] DM (diabetes mellitus), type 2 with peripheral vascular complications (CMS/HCC V24, CMS/HCC V28) Social History Tobacco Use Types Packs/Day Years Used Date Smoking Tobacco: Never Smokeless Tobacco: Never Alcohol Use Standard Drinks/Week Comments Not Currently [...] on file documented as of this encounter Plan of Treatment Upcoming Encounters Date Type Department Care Team (Late st Contact Info) Description 07/19/2025 8:45 AM EDT Office Visit Adult Medicine [facility] [address] [place] [phone] Priya Resendez MD [address] [place] [address] documented as of this encounter Procedures Procedure Name Priority Date/Time Associated Diagnosis Comments LIPID PANEL WITH REFLEX TO DIRECT LDL Routine 01/17/2025 9:01 AM EST DM (diabetes mellitus), type 2 with peripheral vascular complications (CMS/HCC V24, CMS/HCC V28) MICROALBUMIN CREATININE URINE RATIO Routine 01/17/2025 9:01 AM EST DM (diabetes mellitus), type 2 with peripheral vascular complications (CMS/HCC V24, CMS/HCC V28) HEMOGLOBIN A1C Routine 01/17/2025 9:01 AM EST DM (diabetes mellitus), type 2 with peripheral vascular complications (CMS/HCC V24, CMS/HCC V28) documented in this encounter Results * Microalbumin creatinine urine ratio (01/17/2025 9:01 AM EST) Creatinine, Urine 38.0 mg/dL LAB CHEMISTRY METHOD 01/17/2025 9:25 PM EST [facility] Microalb, Ur <5.0 0.0 - 29.0 mg/L LAB CHEMISTRY METHOD 01/17/2025 9:25 PM EST [facility] Microalb/Creat Ratio <13 <30 mg/g creat LAB CHEMISTRY METHOD 01/17/2025 9:25 PM [facility] Urine Urine specimen obtained by clean catch procedure / Unknown Non-blood Collection / Unknown 01/17/2025 9:01 AM EST 01/17/2025 9:01 AM EST C Ja Resendez MD LAB URINE ORDERABLES Final Res ult [facility] [address] [place] [address], * Lipid panel with reflex to direct LDL (01/17/2025 9:01 AM EST) Cholesterol 177 0 - 200 mg/dL LAB CHEMISTRY METHOD 01/17/2025 8:21 PM EST [facility] Triglycerides 77 0 - 150 mg/dL LAB CHEMISTRY METHOD 01/17/2025 8:21 PM [facility] HDL 75 >=40 mg/dL LAB CHEMISTRY METHOD 01/17/2025 8:21 PM [facility] LDL Calculated 87 0 - 100 mg/dL LAB CHEMISTRY METHOD 01/17/2025 8:21 PM [facility] Comment:Estimated LDL Calcul ated using equation: Total cholesterol - HDL cholesterol - (Triglycerides/5) VLDL Cholesterol Brandan 15.4 mg/dL LAB CHEMISTRY METHOD 01/17/2025 8:21 PM [facility] Non HDL Chol. (LDL+VLDL) 102 <145 mg/dL LAB CHEMISTRY METHOD 01/17/2025 8:21 PM [facility] Chol/HDL Ratio 2.4 0.0 - 4.4 LAB CHEMISTRY METHOD 01/17/2025 8:21 PM [facility] Blood Venous blood specimen / Unknown Venipuncture / Unknown 01/17/2025 9:01 AM EST 01/17/2025 9:01 AM EST us Priya Resendez MD LAB BLOOD ORDERABLES Final Res ult [facility] [address] [place] [address], [place] [phone] * Hemoglobin A1c (01/17/2025 9:01 AM EST) Hemoglobin A1C 5.6 <6.5 % LAB CHEMISTRY METHOD 01/17/2025 2:15 PM [facility] Mean Bld Glu Estim. 114 mg/dL LAB CHEMISTRY METHOD 01/17/2025 2:15 PM [facility] Blood Venous blood specimen / Unknown Venipuncture / Unknown 01/17/2025 9:01 AM EST 01/17/2025 9:01 AM EST us Priya Resendez MD LAB BLOOD ORDERABLES Final Res ult [facility] [address] [place] [address], documented in this encounter Visit Diagnoses Diagnosis DM (diabetes mellitus), type 2 with peripheral vascular complications (CMS/HCC V24, CMS/HCC V28) Type II or unspecified type diabetes mellitus with peripheral circulatory disorders, not stated as uncontrolled documented in this encounter Additional Health Concerns Assessment Noted Time PHQ-9 Depression Total Score: 0 04/23/19 25 4:18 PM EST documented as of this encounter Care Teams Frequency Checker Relationship Specialty Start Date End Date Priya Resendez MD [address] [place] [id number] PCP - General 10/16/01 documented as of this encounter
--- NOTE | 2025-01-20 10:09 | A.OFFVIS_ITS ---
Vital Signs 01/20/25 10:16 Height 5 ft 11 in Weight 180 lb 1.883 oz BMI 25.1 BP 132/70 Blood Pressure Location Lt brachial Position Sitting Pulse 62 Pulse Source Pulse Oximeter Pulse Oximetry (%) 98 Oxygen Delivery Method Room Air Intake Visit Reasons: PMR Intake Note: Patient presents for PMR follow up. Allergies hydrocodone Allergy (Severe, Verified 01/20/25 10:14) Vomiting oxycodone Allergy (Severe, Verified 01/20/25 10:14) Dizziness regadenoson Allergy (Severe, Verified 01/20/25 10:14) Vomiting Medication List - Last Reconciled 01/21/25 by Darling Nicholson MD acebutolol 200 mg PO BID aspirin 81 mg PO DAILY cholecalciferol (vitamin D3) 50 mcg PO DAILY mecobalamin (vitamin B12) 1,000 mcg PO DAILY metformin ER 500 mg PO QAM pravastatin 40 mg PO BEDTIME tocilizumab (Actemra) 8mg/kg intravenously every 4 weeks; HPI Comments Details: Patient is a 74-year-old male with diabetes, hyperlipidemia, polyarticular osteoarthritis, osteopenia and polymyalgia rheumatica here today for follow up Interval History: Patient last seen with vt - On Actemra IV 8mg every 4 weeks Since then - About 1 week ago patient had sudden onset of chest pain radiating down the hands - Went to the ED, concerned that he may have been having an CT - Trops were elevated - Cardiac cath showed no blockages - Diagnosed with prinzmetal's angina, gang vibrator operator thinks actemra could be the culprit - Sx improved on its own - Stopped prednisone in 06/2024 - No further episodes - Currently has a holter monitor - No PMR symptoms at this time. shoulders feel great - Actemra dose reduced to 6mg every 4 weeks Today - On Actemra 6mg every 4 weeks - Doing well - No further cardiac episodes, following closely with cardiology Rheumatologic History: Onset? fall 2020; prednisone since 11/2021 Actemra infusion added 01/2024 effective Current Rheumatology Medication(s): Actemra IV 6mg/kg every 4 weeks [facility] Medical History (Updated 01/21/25 @ 16:15 by Darling Nicholson MD) Renal cyst Murmur AAA (abdominal aortic aneurysm) Diabetes Osteoarthritis TMJ arthralgia PMR (polymyalgia rheumatica) Osteopenia Decreased muscle strength High cholesterol Surgical History History of shoulder surgery H/O colonoscopy Family History Father Colon polyps, Onset Age: 70 Prostate cancer, Onset Age: 70 Abdominal aortic aneurysm, Onset Age: 82 Mother Hypertension Thyroid disease Social History Household Members: Spouse Housing: House Are you a primary child care attendant school to a significant other at home: No Do you presently have visiting nurse or other home services: No Alcohol intake: current Alcohol intake frequency: a few times a month Alcohol type: beer Patient Tobacco Use Status: Never used Tobacco e-Cigarette/Vaping Use: Never Used service: No Current occupational status: retired 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 Review of Systems Narrative Review of Systems Constitutional: Denies fever, chills, weight loss ENT: Denies vision changes, eye pain or eye redness, dental caries, dry mouth GI: Denies nausea, vomiting, diarrhea, abdominal pain, change in BM Pulm: Denies SOB, VALERIO, hemoptysis, wheezing Cards: Denies chest pain, palpitations Skin: Denies Raynaud's, rash, nail changes, photosensitivity, ABRASIVE WHEEL MOLDER: Denies headaches, weakness, paresthesias, recurrent falls MSK: as per HPI All other systems reviewed and are unremarkable except noted above Physical Exam Exam Exam: Vital signs reviewed Physical Examination CONSTITUITIONAL Patient alert and cooperative. Well appearing and in no apparent painful distress MSK Hands * Right Hand: Able to make a fist. No swelling or tenderness to palpation of the MCPs, PIPs or DIPs. * Left Hand: Able to make a fist. No swelling or tenderness to palpation of the MCPs, PIPs or DIPs. Wrists * Right Wrist: Full ROM to flexion and extension. No swelling or TTP * Left Wrist: Full ROM to flexion and extension. No swelling or TTP Elbows * Right Elbow: Full ROM. No swelling or TTP. No TTP of the medial epicondyle. No TTP of the lateral epicondyle * Left Elbow: Full ROM. No swelling or TTP. No TTP of the medial epicondyle. No TTP of the lateral epicondyle Shoulders * Right shoulder:No swelling noted. No TTP of the AC joint. No TTP of the subacromial bursa. No TTP of the posterior shoulder * Left shoulder: No swelling noted. No TTP of the AC joint. No TTP of the subacromial bursa. No TTP of the posterior shoulder Knees * Right knee: No swelling noted. No TTP of the knee joint line. No TTP of pes anserine bursa * Left knee: No swelling noted. No TTP of the knee joint line. No TTP of pes anserine bursa. Ankles * Right ankle: Good ankle dorsiflexion and plantar flexion. No swelling. No TTP of the ankle joint * Left ankle: Good ankle dorsiflexion and plantar flexion. No swelling. No TTP of the ankle joint Feet * Right foot: Negative squeeze test * Left foot: Negative squeeze test Tender points? * No tenderness to palpation of the bilateral trapezius, supraspinatus, anterior costochondral junctions, bilateral suboccipital muscle insertions SKIN No rashes Vital Signs: Last Vital Signs Pulse 62 01/20/25 10:16 BP 132/70 01/20/25 10:16 Pulse Ox 98 01/20/25 10:16 Oxygen Delivery Method Room Air 01/20/25 10:16 BMI result Body Mass Index 25.1 Results Reviewed Results Reviewed: Laboratory Tests 12/14/24 01/11/25 13:37 13:24 WBC 5.5 RBC 4.68 Hgb 15.1 Hct 43.3 Plt Count 197 ESR 2 Sodium 142 Potassium 5.2 H Chloride 107 Carbon Dioxide 31 H BUN 28 H Creatinine 1.01 AST 25 52 H ALT 26 32 C-Reactive Protein < 0.10 Laboratory Tests 06/01/24 13:32 Hepatitis A IgM Ab Nonreactive Hep Bs Antigen Negative Hep Bs Antibody NONREACTIVE Hep B Core Total Ab Nonreactive Hepatitis C Ab (EIA) Nonreactive TB Test (T-Spot) Com Negative DEXA 10/2024 FINDINGS: The bone mineral density of the lumbar spine is 1.327 g/cm2, corresponding to a T-score of 0.9, and a Z-score of 1.5. This is indicative of normal bone mineral density. This represents a BMD change of 4.3% compared to the prior exam. This is statistically significant. The bone mineral density of the left total hip is 0.929 g/cm2, corresponding to a T-score of -1.2, and a Z-score of -0.4. This is indicative of osteopenia. This represents a BMD change of -0.5% compared to the prior exam. This is not statistically significant. The bone mineral density of the left femoral neck is 0.848 g/cm2, corresponding to a T-score of -1.7, and a Z-score of -0.4. This is indicative of osteopenia. This represents a BMD change of 1.2% compared to the prior exam. FRACTURE RISK: The FRAX index suggests a ten year probability of major osteoporotic fracture of 13.5%, and of hip fracture 4.5%. Assessment & Plan Assessment & Plan (1) Polymyalgia rheumatica: Comment: Onset? fall 2020; prednisone since 11/2021 Actemra infusion added 01/2024 effective Code(s): M35.3 - Polymyalgia rheumatica Category: Medical Plan: #PMR Patient is a 74-year-old gentleman with PMR currently in remission. Tapering Actemra Plan - Decrease actemra infusions 6mg/kg every 6 weeks - RTC 4 months - Labs before visit: CBC, CMP, ESR, CRP, lipid panel (2) Osteopenia: Comment: DEXA 08/2022: AP spine 0.4, Left femur neck -1.8, Left femur total -1.2. FRAX 10/2.9 DEXA 10/2024: AP Spine 0.9, Left femur neck -1.7, Left femur total -1.2. FRAX 13.5/4.5 Code(s): M85.80 - Other specified disorders of bone density and structure, unspecified site Category: Medical Qualifiers: Osteopenia location: multiple sites Qualified Code(s): M85.89 - Other specified disorders of bone density and structure, multiple sites Plan: #Osteopenia Patient with osteopenia currently on vitamin-D supplementation. Patient states that he rides a stationary bike for 3 miles a day with high resistance His FRAX index increased, likely 2/2 to his age but since he is off steroids we will continue to monitor off therapy, he is very active Plan - Continue Vit D (3) Encounter for monitoring tocilizumab therapy: Code(s): Z51.81 - Encounter for therapeutic drug level monitoring; . - Other long term care social worker (current) drug therapy Plan: #Long-term Use of Tocilizumab Discussed the risks and benefits of tocilizumab with the management of this patient's rheumatic condition. ? Benefits include decreased pain, improved mortality, improved quality of life Risks include LFT abnormalities, elevated triglycerides, GI perforations Contraindicated in a patient with history of diverticulitis Monitoring: ?CBC, CMP, triglycerides Plan I spent 30 minutes reviewing the record and labs, taking a history, examining the patient, discussing the treatment plan, ordering diagnostic work up and documenting in the medical record Orders: Orders Complete Blood Count Auto Diff 4 Months Z - Other long term care social worker (current) drug therapy C Reactive Protein 4 Months Z. - Other jail (current) drug therapy Erythrocyte Sedimentation Rate 4 Months Z. - Other jail (current) drug therapy Comprehensive Met. Panel 4 Months - Other long term care social worker (current) drug therapy Medications: Changed From tocilizumab (Actemra) 8mg/kg intravenously every 4 weeks; To tocilizumab (Actemra) 6mg/kg intravenously every 6 weeks; Coding Level of Care Code Est Pt Level 4 (88895) Complex EM visit Add On G2211 Diagnoses Polymyalgia rheumatica M35.3 Osteopenia of multiple sites M85.89 Osteopenia location: multiple sites Encounter for monitoring tocilizumab therapy Z51.81; Z
[2025-01-20 10:16] VITALS: BP 132/70; PULSE 62; O2SAT 98; BMI 25.1
--- OUTSIDE RECORDS SUMMARY | 2025-01-20 11:39 | XMS_ITS | Encounter Summary ---
Author Organization [employer] [place] [address] Care Team Providers Care Raisin Washer Name Role Phone Priya Resendez MD Primary Care Provider [phone] Encounter Details Date Type Department Care Team ([facility] Contact Info) Description 01/18/2025 Results Follow-Up Adult Medicine [facility] [address] [place] [id number] Priya Resendez MD [address] [place] [address] Social History Tobacco Use Types Packs/Day Years [...] for your loved ones. 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 [...] 8:45 AM EDT Office Visit Adult Medicine [facility] [address] [place] [address] Pirya Resendez MD [address] [place] [address] documented as of this encounter Visit Diagnoses Not on filedocumented in this encounter Additional Health Concerns Assessment Noted Time PHQ-9 Depression Total Score: 0 04/23/19 25 4:18 PM EST documented as of this encounter Care Teams Raisin Washer Relationship Specialty Start Date End Date Priya Resendez MD [address] [place] [id number] PCP - General 10/16/01 documented as of this encounter
--- OUTSIDE RECORDS SUMMARY | 2025-01-20 11:39 | XMS_ITS | Patient Health Record ---
Author Organization [facility] Address [address] [place] [address] Care Team Providers Care Pipe Fitter Name Role Phone Ignacio Resendez MD Primary Care Provider Unavail able Willis Colon Unavailable [phone] Reason For Referral No Information Medications Medication SIG (Take, Route, Frequency, Duration) Notes Start Date End Date Status Pravastatin Sodium 40 MG 1 tablet Orally Once a day Active Aspir-81 81 MG 1 tablet Orally Once a day Active Problems Problem Type SNOMED Code ICD Code Onset Dates Problem Status W/U Status Risk Notes Problem Screening for malignant neoplasm of colon (355785076) Encounter for screening for malignant neoplasm of colon (Z12.11) Active confirmed Problem Screening for malignant neoplasm of rectum (116754265) Encounter for screening for malignant neoplasm of rectum (Z12.12) Active confirmed Problem Preprocedural examination (645244903456067) Preprocedural examination (Z01.818) Active confirmed Plan Of Treatment Future Test Test Name Order Date COLONOSCOPY 05/18/2015 Insurance Providers Payer Name Payer Address Payer Phone Subscriber Number Group Number Insured Name Patient Relationship to Insured Coverage Start Date Coverage End Date [facility] [address] [place] [phone] [id number] IRIS JEFF Self - patient is the insured Medical (General) History Medical History History ICD Code Denies MD,DM,CVA,Lung disease,renal dise ase hyperlipidemia He reports a negative colonoscopy at [facility] in approx 2005
--- OUTSIDE RECORDS SUMMARY | 2025-01-20 11:40 | XMS_ITS | Clinical Summary ---
Author Organization [facility] [address] [facility] lding Address [address] [place] [address] Phone Care Team Providers Care Graphic Art Sales Representative Name Role Phone Priya Resendez MD Primary Care Provider [phone] Allergies Active Allergy Reactions Criticality Noted Date Comments Hydrocodone-Acetaminoph en Nausea Only,Dizziness 04/20/2016 vicodan Oxycodone Dizziness 01/07/2024 Regadenoson Dizziness 11/26/2024 Dizziness, vomited, chills Medications FREESTYLE LANCETS MISC CHECK BLOOD SUGAR DAILY 024 Active blood-glucose meter kit Check blood sugar bid 021 Active tocilizumab (Actemra) 20 mg/mL solution Infuse into a venous catheter. Every four weeks for PMR Active blood sugar diagnostic (FreeStyle Lite Strips) test stripIndications :DM (diabetes mellitus), type 2 with peripheral vascular complications ([facility] V24, [facility] V28) Use as instructedUSE TO CHECK BLOOD SUGAR ONCE DAILY 100 strip 1 025 Active pravastatin (PRAVACHOL) 40 mg tablet TAKE 1 TABLET BY MOUTH EVERY DAY 90 tablet 1 025 Active aspirin 81 mg EC tablet Take 1 tablet (81 mg total) by mouth 1 (one) time each day. Active cyanocobalamin (VITAMIN B-12) 1,000 mcg tablet Take 1 tablet (1,000 mcg total) by mouth 1 (one) time each day. Active cholecalciferol (Vitamin D3) 25 mcg (1,000 unit) capsule Take 1 capsule (1,000 Units total) by mouth 1 (one) time each day. Active acebutoloL (SECTRAL) 200 mg capsuleIndicatio ns:PVC's (premature ventricular contractions),Co ronary-myocardia l bridge Take 1 capsule (200 mg total) by mouth 2 (two) times a day. 180 capsule 3 025 2025 Active blood glucose control high,low (FreeStyle Control) solution USE DIRECTED 021 2024 Discontinued predniSONE (DELTASONE) 5 mg tablet Take 2 mg by mouth 1 (one) time each day. 023 2024 Discontinued acebutoloL (SECTRAL) 200 mg capsuleIndicatio ns:PVC's (premature ventricular contractions),Co ronary-myocardia l bridge Take 1 capsule (200 mg total) by mouth 2 (two) times a day. 180 capsule 1 025 2024 Discontinued(R eorder) acebutoloL (SECTRAL) 200 mg capsuleIndicatio ns:PVC's (premature ventricular contractions),Co ronary-myocardia l bridge Take 1 capsule (200 mg total) by mouth 2 (two) times a day. 180 capsule 1 025 2024 Discontinued(R eorder) Active Problems Problem Noted Date Diagnosed Date Microvascular angina ([facility] V24) 01/13/2025 Assessment & Plan (01/13/2025 2:02 PM EST): Cardiac PET stress test reassuring. Continue with present medications. 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 Continue with acebutolol for reduced lightheadedness and improved PVC control. Continue with aspirin and pravastatin. Orders: acebutoloL (SECTRAL) 200 mg capsule; Take 1 capsule (200 mg total) by mouth 2 (two) times a day. Assessment & Plan (10/06/2024 11:01 AM EDT): [...] Future PVC's (premature ventricular contractions) 10/05 Overview (01/13/2025): September 2024 inpatient echocardiogram showing preserved left [...] burden of 7.5% and no significant pauses November 2024 - Cardiac PET stress test Mildly abnormal perfusion by PET imaging in the mid to distal inferior wall with borderline reduced stress/reserve flow. Given the recent cardiac cath showing no significant disease in the RCA territory, I am suspicious that the increased adjacent gut uptake is contributing to these findings (likely artifact). Myocardial bridging was noted in the LAD territory though there is normal myocardial stress/reserve flow in this region suggesting it is not hemodynamically significant. Normal LVEF at rest and stress with normal wall motion and thickening. No TID noted. Assessment & Plan (01/13/2025 2:02 PM EST): [place] of 7.5%. At times symptomatic, but also he may be symptomatic from bradycardia. Continue with acebutolol. Orders: ECG 12 lead acebutoloL (SECTRAL) 200 mg capsule; Take 1 capsule (200 mg total) by mouth 2 (two) times a day. Assessment & Plan (10/06/2024 11:01 AM EDT): [place] of 7.5%. At times symptomatic, but also he may be symptomatic from bradycardia. Trial of acebutolol in place of metoprolol. Orders: ECG 12 lead acebutoloL (SECTRAL) 200 mg capsule; Take 1 capsule (200 mg total) by mouth 2 (two) times a day. PET myocardial perfusion imaging; Future Iliac artery aneurysm ([facility] V24) 01/16/2024 Overview (03/18/2024): 04/29. Borderline right Iliac aneurysm 03/02. Ectasia, no aneurysm Renal cyst 07/08/2022 Overview (12/09/2023): Ultrasound. Follow up CT multiple bilateral simple cysts. 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 Seborrheic keratoses 10/15/2018 Palpitations 04/22/2018 Pure hypercholesterolemia 06/20/2006 Assessment & Plan (01/13/2025 2:02 PM EST): Continue with pravastatin. Assessment & Plan (10/06/2024 11:01 AM EDT): Continue with pravastatin. Calculus of kidney 06/10/2006 Overview (12/09/2023): 1996 Lateral epicondylitis 06/10/2006 Overview (12/09/2023): IMO update Resolved Problems Problem Noted Date Diagnosed Date Resolved Date CAD (coronary artery disease) 10/05/2024 10/06/2024 Ventricular arrhythmia 09/15/202401/13 Encounters Date Type Department Care Team Description 01/18/2025 Results Follow-Up Adult Medicine - [address] [phone] Priya Resendez MD 01/17/2025 9:00 AM EST Lab Draw Station - [address] [address] DM (diabetes mellitus), type 2 with peripheral vascular complications ([facility] V24, [facility] V28) 01/17/2025 8:30 AM EST Office Visit Adult [address] [phone] Priya Resendez MD DM (diabetes mellitus), type 2 with peripheral vascular complications (CMS/HCC V24, [facility] V28) (Primary Dx); Polymyalgia rheumatica ([facility] V24); Pure hypercholesterolemia; Encounter for immunization 01/13/2025 12:40 PM EST Office Visit [facility] [address] [phone] Yossi Weeks NP PVC's (premature ventricular contractions) (Primary Dx); Coronary-myocardial bridge; Pure hypercholesterolemia; Microvascular angina ([facility] V24) 11/26/2024 10:30 AM EDT Office Visit Adult [address] [phone] Senait Daigle NP Episodic lightheadedness (Primary Dx) 11/18/2024 5:49 PM EDT - 11/18/2024 8:59 PM EDT Emergency [facility] Emergency [address] [place] [phone] Gianfranco Montgomery MD [place] (Primary Dx) Discharge Disposition: Home or Self Care 11/18/2024 2:02 PM EDT - 11/18/2024 11:59 PM EDT Hospital Encounter [facility] Non-Invasive Cardiology [address] [place] [address] Discharge Disposition: Home or Self Care 11/18/2024 9:31 AM EDT - 11/18/2024 11:59 PM EDT Hospital Encounter [facility] PET Scan [address] [place] [address] PVC's (premature ventricular contractions); Coronary-myocardial bridge; Microvascular angina (CMS/HCC V24) Discharge Disposition: Home or Self Care from Last 3 Months Immunizations Immunization Administration Dates Next Due H1N1 Inj Preservative Free 03/01/2009 Influenza trivalent, 0.5mL ( Fluad) 65yo and older 01/17/2025 Influenza trivalent, 0.5mL ( Fluzone High-dose) 65yo [...] Comments CARDIAC CATHETERIZATION DONE ON 09/09/2024 AT [facility] INDICATIONS: NSTEMI. Medical History Medical History Date Comments Hypertension Hyperlipidemia PMR (polymyalgia rheumatica) ([facility] V24) Family History Medical History Relation Name [...] for your loved ones. For example, child care giver or elderly care for an older adult? [...] F) 01/17/2025 8:31 AM EST Respiratory Rate 20 11/18/2024 4:18 PM EDT Oxygen Saturation 95% 01/13/2025 12:43 PM EST Inhaled Oxygen Concentration - - Weight 81.8 kg (180 lb 6.4 oz) 01/17/2025 8:31 A M EST Height 180.3 cm (5' 11 ) 01/17/2025 8:31 AM EST Body Mass Index 25.16 01/17/2025 8:31 AM EST Plan of Treatment Upcoming Encounters Date Type Department Care Team (Late st Contact Info) Description 07/19/2025 8:45 AM EDT Office Visit Adult Medicine [facility] [address] [place] [phone] Priya Resendez MD [address] [place] [address] Health Maintenance Due Date Last Done Comments Diabetes: Annual Retina Eye Exam 11/01/1960 Medicare Annual Wellness Visit 02/16/2022 COVID-19 Vaccine ( season) 2024 07/25/2021, 01/22/2021, 07/22/2020, Additional history exists Social Influencers of Health Screening 01/07/2025 01/08/2024 Diabetes: Blood Sugar Control Test (HGBA1C) 07/17/2025 01/17/2025, 07/14/2024, 01/14/2024, Additional history exists Colorectal Cancer Screening: Colonoscopy 08/02/2025 08/03/2015 Diabetes: Annual GFR (Glomerular Filtration Rate) 11/18/2025 11/18/2024, 07/14/2024, 01/14/2024, Additional history exists Hypertension/CHF/CAD Annual BMP Blood Test 11/18/2025 11/18/2024, 07/14/2024, 01/14/2024, Additional history exists Diabetes: Annual Urine Albumin-Creatinine Ratio (uACR) 01/17/2026 01/17/2025, 07/14/2024, 01/14/2024, Additional history exists Diabetes: Annual Foot Exam 01/17/202601/17, 07/14/2024, 01/14/2024, Additional history exists Falls Risk Assessment 01/17/2026 01/17/2025 RSV Immunization Adult Patients (1 - 1-dose 75+ series) 11/01/2026 DTaP,Tdap,and Td Vaccines (6 - Td or Tdap) 03/26/2027 03/26/2017, 06/09/2006, 07/19/2004, Additional history exists Cholesterol Screening (Lipid Panel) 01/17/2030 01/17/2025, 07/14/2024, 01/14/2024, Additional history exists Hepatitis C Screening Completed 11/19/2011 Pneumococcal Vaccine: 50+ Years Completed 04/17/2018, 03/26/2017 Zoster Vaccines Completed 09/09/2022, 04/08/2022, 11/20/2012 Depression Screening Completed 01/12/2025 Influenza Vaccine Completed 01/17/2025, , 01/09/2023, Additional history exists HIB Vaccines Aged Out [...] Diagnosis Comments MICROALBUMIN CREATININE URINE RATIO Routine 01/17/2025 9:01 [...] (CMS/HCC V24, CMS/HCC V28) ECG 12-LEAD Routine 01/13/2025 2:02 PM EST PVC's (premature ventricular contractions) PET MYOCARDIAL PERFUSION MULTIPLE Routine 11/24/2024 10:22 AM EDT PVC's (premature ventricular contractions) Coronary-myocardial bridge Microvascular angina (CMS/HCC V24) ECG ANNOTATED 11/19/2024 ECG 12-LEAD STAT 11/18/2024 6:26 PM EDT CBC WITH AUTO DIFFERENTIAL STAT 11/18/2024 4:33 PM EDT LIPASE STAT 11/18/2024 4:33 PM EDT MAGNESIUM STAT 11/18/2024 4:33 PM EDT COMPREHENSIVE METABOLIC PANEL STAT 11/18/2024 4:33 PM EDT CBC AND DIFFERENTIAL STAT 11/18/2024 4:33 PM EDT EXTERNAL DEXA REPORT 10/20/2024 EXTERNAL DEXA REPORT 10/20/2024 DIABETES FOOT EXAM Routine 07/14/2023 COLONOSCOPY Routine 08/03/2015 HEPATITIS C SCREENING Routine 11/19/2011 from Last 3 Months or Most Recently Relevant to Health Maintenance Results * Lipid panel with reflex to direct LDL (01/17/2025 9:01 AM EST) Cholesterol 177 0 - 200 mg/dL LAB CHEMISTRY METHOD 01/17/2025 8:21 PM [facility] Triglycerides 77 0 - 150 mg/dL LAB CHEMISTRY METHOD 01/17/2025 8:21 PM [facility] HDL 75 >=40 mg/dL LAB CHEMISTRY METHOD 01/17/2025 8:21 PM [facility] LDL Calculated 87 0 - 100 mg/dL LAB CHEMISTRY METHOD 01/17/2025 8:21 PM [facility] Comment:Estimated LDL Calcul ated using equation: Total cholesterol - HDL cholesterol - (Triglycerides/5) VLDL Cholesterol Brandan 15.4 mg/dL LAB CHEMISTRY METHOD 01/17/2025 8:21 PM [facility] Non HDL Chol. (LDL+VLDL) 102 <145 mg/dL LAB CHEMISTRY METHOD 01/17/2025 8:21 PM [facility] Chol/HDL Ratio 2.4 0.0 - 4.4 LAB CHEMISTRY METHOD 01/17/2025 8:[address] [facility] Blood Venous blood specimen / Unknown Venipuncture / Unknown 01/17/2025 9:01 AM EST 01/17/2025 9:01 AM EST Priya Resendez MD LAB BLOOD ORDERABLES Final Res ult [facility] [address] [place] [address], [place] [phone] * Microalbumin creatinine urine ratio (01/17/2025 9:01 AM EST) Creatinine, Urine 38.0 mg/dL LAB CHEMISTRY METHOD 01/17/2025 9:25 PM [facility] Microalb, Ur <5.0 0.0 - 29.0 mg/L LAB CHEMISTRY METHOD 01/17/2025 9:[address] [facility] Microalb/Creat Ratio <13 <30 mg/g creat LAB CHEMISTRY METHOD 01/17/2025 9:[address] [facility] Urine Urine specimen obtained by clean catch procedure / Unknown Non-blood Collection / Unknown 01/17/2025 9:01 AM EST 01/17/2025 9:01 AM EST Priya Resendez MD LAB URINE ORDERABLES Final Res ult [facility] [address] [place] [address], [place] [phone] * Hemoglobin A1c (01/17/2025 9:01 AM EST) Hemoglobin A1C 5.6 <6.5 % LAB CHEMISTRY METHOD 01/17/2025 2:[address] [facility] Mean Bld Glu Estim. 114 mg/dL LAB CHEMISTRY METHOD 01/17/2025 2:15 PM EST [facility] Blood Venous blood specimen / Unknown Venipuncture / Unknown 01/17/2025 9:01 AM EST 01/17/2025 9:01 AM EST Priya Resendez MD LAB BLOOD ORDERABLES Final Res ult Performing Organization Address City/[facility]/ZIP Co de Phone Number [facility] [address] [place] [address], * ECG 12 lead (01/13/2025 2:02 PM EST) Only the most recent of2 resultswithin the time period is included. Ventricular Rate ECG 58 BPM GEMUSE Atrial Rate 58 BPM GEMUSE P-R Interval 202 ms GEMUSE QRS Duration 84 ms GEMUSE Q-T Interval 396 ms GEMUSE QTc 388 ms GEMUSE P Wave Galt 75 degrees GEMUSE R Galt 43 degrees GEMUSE T Galt 40 degrees GEMUSE ECG Interpretation Sinus bradycardia Otherwise normal ECG When compared with ECG of 18-NOV-2024 18:26, Premature ventricular complexes are no longer Present QT has shortened Confirmed by VICENTE CHRISTOPHER ([id number]) on 01/16/2025 4:03:49 PM GEMUSE 01/13/2025 12:5 3 PM EST 01/16/2025 4:03 PM EST Yossi Weeks GOLF MANAGER ECG ORDERABLES Edited Resu lt - Final GEMUSE * PET MYOCARDIAL PERFUSION MULTIPLE (11/24/2024 10:22 AM EDT) Target HR 125 bpm RIS PACS/VR Baseline HR 55 bpm RIS PACS/VR Baseline SBP 142 mmHg RIS PACS/VR Baseline DBP 63 mmHg RIS PACS/VR Peak HR 82 bpm RIS PACS/VR Peak SBP 112 mmHg RIS PACS/VR Peak DBP 51 mmHg RIS PACS/VR Rate Pressure Product 9,184.0 mmHg*bpm RIS PACS/VR Percent HR 56 % RIS PACS/VR ST Depression (mm) 0 mm RIS PACS/VR Nuc Stress EF 68 % RIS PACS/VR Nuc Rest EF 54 % RIS PACS/VR Anatomical Region Laterality Modality Radiographic Parvin ging Addenda Addendum by Parrish Witt MD on 11/26/2024 4:35 PM EDT Mildly abnormal perfusion by PET imaging in the mid to distal inferior wall with borderline reduced stress/reserve flow. Given the recent cardiac cath showing no significant disease in the RCA territory, I am suspicious that the increased adjacent gut uptake is contributing to these findings (likely artifact). Myocardial bridging was noted in the LAD territory though there is normal myocardial stress/reserve flow in this region suggesting it is not hemodynamically significant. Normal LVEF at rest and stress with normal wall motion and thickening. No TID noted. Stress ECG portion at documented below. Stress Findings A pharmacological stress test was performed using regadenoson, 0.4 mg IV over 10-15 seconds, followed by radiopharmacological injection 55 seconds post infusion. The patient reached the end of the protocol. Reversal medication aminophylline and 75 mg given at minute 4 of recovery. Blood pressure demonstrated a hypotensive response. Improved to 121/57 after aminophylline. Heart rate demonstrated a normal response. The patient reported lightheadedness and leg heaviness persisting after regadenson infusion. Minimal improvement after reversal with aminophylline despite improved hemodynamics. Accordingly, patient was sent to the ER from the stress lab for further evaluation. ECG 74 yo male with PVCs, chest pain possible microvascular angina. The ECG shows sinus bradycardia rate 55 bpm. There were no ECG changes during stress and recovery. Isolated PVCs noted at rest, stress and recovery. Nuclear Study Quality Study technique: MPI, SPECT, multi, rest and stress, 1 day and 25 mCi of Rubidium-82 was administered at rest and stress. Overall image quality is good. CT attenuation correction was utilized. Increased bowel uptake artifact is present. There was no increased lung uptake of the radiopharmaceutical. Perfusion Defect Conclusion There is no evidence of transient ischemic dilation (TID). Absolute Flow Normal stress flow >1.8 ml/min/g globally and in the LAD, LCx territory. Borderline reduced flow in the RCA territory at 1.64 ml/min/g. Normal global and regional flow reserve in the LAD and LCx territory. Borderline reduced flow reserve in the RCA territory at 1.98. Stress Function Comments Left ventricular systolic function post-stress is normal. Stress ejection fraction is 68%. Normal global wall motion and thickening. Rest Function Comments Left ventricular function at rest was normal. Resting ejection fraction was 54%. CT Findings CT findings reported seperately. Nuclear Prior Study There is no prior study available for comparison. Perfusion Comments LV perfusion is abnormal. There is a small in size mild intensity reversible defect in the mid to distal inferior wall though there is significant gut uptake adjacent to this wall. No other defects identified Perfusion Scoring Resting Summed Score: 0 Percent Normal: 0.00% The left ventricular perfusion is normal. Perfusion Scoring Stress Summed Score: 2 Percent Normal: 2.94% Mild count reduction in the following segments: mid inferior and apical inferior. All other segments are normal. Perfusion Scores: SRS Score: 0 Percentage Abnormal: 0.00% Perfusion Scores: SSS Score: 2 Percentage Abnormal: 2.94% Perfusion Scores: SDS Score: 2 Percentage Abnormal: 2.94% Yossi Weeks NP CV CARDIAC NUCLEAR PROCEDUR ES Edited Result - Final * ECG-Annotated (11/19/2024) Provider Onbase MD ECG ORDERABLES Final Result * (ABNORMAL) CBC auto differential (11/18/2024 4:33 PM EDT) WBC 10.5 4.8 - 10.8 K/mcL LAB HEMETOLOGY METHOD 11/18/2024 5:[address] [facility] RBC 4.90 4.50 - 5.50 M/mcL LAB HEMETOLOGY METHOD 11/18/2024 5:[address] [facility] Hemoglobin 15.4 13.5 - 17.5 g/dL LAB HEMETOLOGY METHOD 11/18/2024 5:[address] [facility] Hematocrit 42.5 42.0 - 54.0 % LAB HEMETOLOGY METHOD 11/18/2024 5:[address] [facility] MCV 87.4 79.0 - 98.0 FL LAB HEMETOLOGY METHOD 11/18/2024 5:[address] [facility] MCH 31.7 27.0 - 32.0 pcg LAB HEMETOLOGY [facility] MCHC 36.2 32.0 - 37.0 g/dL LAB HEMETOLOGY METHOD 11/18[facility]2024 [facility] RDW 12.0 11.0 - 15.0 % LAB HEMETOLOGY METHOD 11/18/2024 5:00 PM [facility] Platelets 220 130 - 400 K/mcL LAB HEMETOLOGY METHOD 11/18[facility]2024 [facility] MPV 10.5 7.0 - 11.0 FL LAB HEMETOLOGY METHOD 11/18[facility]2024 5[facility] NRBC 0.0 <1.0 % LAB HEMETOLOGY METHOD 11/18/2024 5:00 PM [facility] NRBC Absolute 0.00 <0.10 K/mcL LAB HEMETOLOGY METHOD 11/18/2024 5:00 PM [facility] Neutrophils Relative 71.1 % LAB HEMETOLOGY METHOD 11/18/2024 5:00 PM [facility] Lymphocytes Relative 20.5 % LAB HEMETOLOGY METHOD 11/18/2024 5:00 PM [facility] Monocytes Relative 6.6 % LAB HEMETOLOGY METHOD 11/18/2024 5:00 PM [facility] Eosinophils Relative 1.0 % LAB HEMETOLOGY METHOD 11/18/2024 5:00 PM [facility] Basophils Relative 0.6 % LAB HEMETOLOGY METHOD 11/18/2024 5:00 PM [facility] Immature Granulocytes Relative 0.2 % LAB HEMETOLOGY METHOD 11/18/2024 5:[address] [facility] Neutrophils Absolute 7.44(H) 1.50 - 7.00 K/[facility] LAB HEMETOLOGY METHOD 11/18/2024 5:[address] [facility] Lymphocytes Absolute 2.14 1.00 - 5.00 K/[facility] HEMETOLOGY METHOD 11/18/2024 5:[address] [facility] Monocytes Absolute 0.69 0.20 - 1.00 K/mcL LAB HEMETOLOGY METHOD 11/18/2024 5:[address] [facility] Eosinophils Absolute 0.10 0.00 - 0.50 K/[facility] HEMETOLOGY METHOD 11/18/2024 5:[address] [facility] Basophils Absolute 0.06 0.00 - 0.20 K/mcL LAB HEMETOLOGY METHOD 11/18/2024 5:[address] [facility] Immature Granulocytes Absolute 0.02 0.00 - 0.03 K/mcL LAB HEMETOLOGY METHOD 11/18/2024 5:[address] [facility] Blood Venous blood specimen / Unknown Venipuncture / Unknown 11/18/2024 4:33 PM EDT 11/18/2024 4:54 PM EDT Gianfranco Caceres MD LAB BLOOD ORDERABLES Final Result [facility] [address] [place] [address], * Magnesium (11/18/2024 4:33 PM EDT) Magnesium 2.1 1.9 - 2.6 mg/dL LAB CHEMISTRY METHOD 11/18/2024 5:[address] [facility] Blood Venous blood specimen / Unknown Venipuncture / Unknown 11/18/2024 4:33 PM EDT 11/18/2024 4:55 PM EDT Gianfranco Caceres MD LAB BLOOD ORDERABLES Final Result [facility] [address] [place] [address], [place] [phone] * Lipase (11/18/2024 4:33 PM EDT) Pathologist [facility] Lipase 37 13 - 75 unit/L LAB CHEMISTRY METHOD 11/18/2024 5:[address] [facility] Blood Venous blood specimen / Unknown Venipuncture / Unknown 11/18/2024 4:33 PM EDT 11/18/2024 4:55 PM EDT Gianfranco Caceres MD LAB BLOOD ORDERABLES Final Result Performing Organization Address City/[facility]/ZIP Co de Phone Number [facility] [address] [place] [address], [place] [phone] * (ABNORMAL) Comprehensive metabolic panel (11/18/2024 4:33 PM EDT) [facility] Sodium 137 133 - 145 mmol/L LAB CHEMISTRY METHOD 11/18/2024 5:[address] [facility] Potassium 3.9 3.5 - 5.5 mmol/L LAB CHEMISTRY METHOD 11/18/2024 5:[address] [facility] Chloride 107 96 - 110 mmol/L LAB CHEMISTRY METHOD 11/18/2024 5:[address] [facility] CO2 22 21 - 32 mmol/L LAB CHEMISTRY METHOD 11/18/2024 5:[address] [facility] Anion Gap 8 3 - 11 LAB CHEMISTRY METHOD 11/18/2024 5:[address] [facility] Glucose 165(H) 70 - 100 mg/dL LAB CHEMISTRY METHOD 11/18/2024 5:31 PM [facility] BUN 23 5 - 25 mg/dL LAB CHEMISTRY METHOD 11/18/2024 5:31 PM [facility] Creatinine 1.00 0.70 - 1.30 mg/dL LAB CHEMISTRY METHOD 11/18/2024 5:31 PM [facility] eGFR 79 >=60 mL/min/1. 73m2 LAB CHEMISTRY METHOD 11/18/2024 5:31 PM [facility] Comment:Calculation based on the Chronic Kidney Disease Epidemiology Collaboration (CKD-EPI) equation refit without adjustment for race. BUN/Creatinine Ratio 23.0 LAB CHEMISTRY METHOD 11/18/2024 5:31 PM [facility] Calcium 9.6 8.5 - 10.5 mg/dL LAB CHEMISTRY METHOD 11/18/2024 5:31 PM [facility] AST (SGOT) 29 10 - 42 unit/L LAB CHEMISTRY METHOD 11/18/2024 5:31 PM [facility] ALT (SGPT) 32 10 - 60 unit/L LAB CHEMISTRY METHOD 11/18/2024 5:31 PM [facility] Alkaline Phosphatase 76 42 - 121 unit/L LAB CHEMISTRY METHOD 11/18/2024 5:31 PM [facility] Total Protein 6.9 6.0 - 8.0 g/dL LAB CHEMISTRY METHOD 11/18/2024 5:31 PM [facility] [facility] Albumin 4.3 3.2 - 5.0 g/dL LAB CHEMISTRY METHOD 11/18/2024 5:31 PM [facility] Total Bilirubin 1.3 0.0 - 1.4 mg/dL LAB CHEMISTRY METHOD 11/18/2024 5:31 PM [facility] Blood Venous blood specimen / Unknown Venipuncture / Unknown 11/18/2024 4:33 PM EDT 11/18/2024 4:55 PM EDT Gianfranco Caceres MD LAB BLOOD ORDERABLES Final Result AV [facility] ([facility] [address] [place] [address], * External Dexa Report (10/20/2024) Only the most recent of2 resultswithin the time period is included. Anatomical Region Laterality Modality Bone Densitometr y Provider [facility] DXA PROCEDURES Final Result * Diabetes Foot Exam (07/14/2023) [facility] Diabetes: Annual Foot Exam abstracted Historical Provider HEALTH MAINTENANCE Final Result * Colonoscopy (08/03/2015) [facility] Colonoscopy no interpretation , abstracted Anatomical Region Laterality Modality Other Historical Provider HEALTH MAINTENANCE Final Result * Hepatitis C Screening (11/19/2011) [facility] Hepatitis C Screening abstracted Historical Provider HEALTH MAINTENANCE Final Result from Last 3 Months or Most Recently Relevant to Health Maintenance Insurance MEDICARE [facility] Care Teams Graphic Art Sales Representative Relationship Specialty Start Date End Date Priya Resendez MD [address] [place] [address] PCP - General 10/16/01
== END 2025-01-20 10:33 | disposition home or self-care (01) ==
LOC: HO.RHES 09:52
PROVIDERS: PCP Pediatrics; Visit Provider Student in an Organized Health Care Education/Training Program
DX: M35.3 Polymyalgia rheumatica (principal); M85.89 Other specified disorders of bone density and structure, multiple sites; Z51.81 Encounter for therapeutic drug level monitoring; Z79.899 Other long term (current) drug therapy
CPT/HCPCS: 99214; G2211

== ENCOUNTER → 2025-01-20 09:51 | Outpatient (BNVA) | payer MEDICARE, SELFPAY | PROVIDERS: PCP Pediatrics; Visit Provider Student in an Organized Health Care Education/Training Program | DX: M35.3 Polymyalgia rheumatica (principal); M85.89 Other specified disorders of bone density and structure, multiple sites; Z51.81 Encounter for therapeutic drug level monitoring; Z79.899 Other long term (current) drug therapy; Z79.82 Long term (current) use of aspirin | CPT/HCPCS: 99212 ==